=== PATIENT | male | born 1970 | race Two or more races ===

== ENCOUNTER 2023-03-30 09:31 | Outpatient (REF) | payer OTHER, SELFPAY ==
--- NOTE | ~2023-03-30 | XR_ITS ---
EXAMINATION: XR LUMBAR SPINE XR HIPS, BILATERAL WITH PELVIS CLINICAL INFORMATION: Back pain with bilateral sciatica. COMPARISON: None available. TECHNIQUE: Three-view lumbar spine. AP pelvis. 2 views of each hip. FINDINGS: LUMBAR SPINE: There are 5 nonrib-bearing lumbar vertebrae. No acute fracture, spondylolisthesis, or spondylolysis is appreciated. Pedicles appear intact. Disc spaces are maintained. There is mild scoliosis convex right. There is some mild spurring at multiple levels. There appears to be right-sided facet arthropathy L5-S1. There is mild sclerosis of the sacroiliac joints bilaterally. Psoas muscles intact. PELVIS AND BILATERAL HIPS: AP film of the pelvis does not demonstrate any evidence of acute fracture or diastasIs. Hip joint spaces appear maintained. No definite widening or fusion of sacroiliac joints is appreciated. 2 views of the right hip do not demonstrate any evidence of acute fracture or dislocation. Joint space is maintained. No abnormal lytic or sclerotic lesions are identified. 2 views of the left hip appear unremarkable. No acute fracture or dislocation identified. Joint space maintained. No abnormal lytic or sclerotic lesions. XR/XR hip BI w PEL1V IMPRESSION: Mild degenerative change of the lumbosacral spine. No evidence of acute fracture or diastasIs of the pelvis. No significant bony abnormalities of the right or left hips.
--- NOTE | ~2023-03-30 | XR_ITS ---
EXAMINATION: XR LUMBAR SPINE XR HIPS, BILATERAL WITH PELVIS CLINICAL INFORMATION: Back pain with bilateral sciatica. COMPARISON: None available. TECHNIQUE: Three-view lumbar spine. AP pelvis. 2 views of each hip. FINDINGS: LUMBAR SPINE: There are 5 nonrib-bearing lumbar vertebrae. No acute fracture, spondylolisthesis, or spondylolysis is appreciated. Pedicles appear intact. Disc spaces are maintained. There is mild scoliosis convex right. There is some mild spurring at multiple levels. There appears to be right-sided facet arthropathy L5-S1. There is mild sclerosis of the sacroiliac joints bilaterally. Psoas muscles intact. PELVIS AND BILATERAL HIPS: AP film of the pelvis does not demonstrate any evidence of acute fracture or diastasIs. Hip joint spaces appear maintained. No definite widening or fusion of sacroiliac joints is appreciated. 2 views of the right hip do not demonstrate any evidence of acute fracture or dislocation. Joint space is maintained. No abnormal lytic or sclerotic lesions are identified. 2 views of the left hip appear unremarkable. No acute fracture or dislocation identified. Joint space maintained. No abnormal lytic or sclerotic lesions. XR/XR lumbar spine 4V min IMPRESSION: Mild degenerative change of the lumbosacral spine. No evidence of acute fracture or diastasIs of the pelvis. No significant bony abnormalities of the right or left hips.
[2023-03-30 09:50] LABS: MANUAL DIFF FLAG NO
[2023-03-30 10:05] LABS: Basophils Percent Auto 0.6 % (0-2); Eosinophils Absolute Auto 0.1 X10*3/uL (0.0-0.4); Eosinophils Percent Auto 2.4 % (0-4); Hematocrit 40.8 % (42.0-52.0); Hemoglobin 13.8 g/dl (14.0-18.0); Imm Gran Abs Auto 0.01 X10*3/uL (0.00-0.03); Imm Gran Pct Auto 0.2 % (0.0-0.4); Lymphocytes Absolute Auto 2.3 X10*3/uL (1.2-4.9); Lymphocytes Percent Auto 45.5 % (20-40); Mean Corpuscular HGB Conc 33.8 g/dl (31.0-36.0); Mean Corpuscular Hemoglobin 29.9 pg (27.0-33.0); Mean Corpuscular Volume 88.3 fL (80.0-98.0); Mean Platelet Volume 10.5 fL (9.4-12.4); Monocytes Absolute Auto 0.6 X10*3/uL (0.1-1.2); Monocytes Percent Auto 12.4 % (2-11); Neutrophils Absolute Auto 1.9 x10*3/uL (2.0-8.3); Neutrophils Percent Auto 38.9 % (45-73); Platelet Count 221 X10*3/uL (160-400); Red Blood Count 4.62 X10*6/uL (4.60-5.80); Red Cell Distribution Width 12.8 % (11.0-16.0)
[2023-03-30 10:45] LABS: Alanine Aminotransferase 29 U/L (0-40); Albumin Level 4.3 g/dL (3.5-5.0); Alkaline Phosphatase 62 U/L (39-117); Anion Gap 8 (12-20); Aspartate Amino Transferase 25 U/L (5-37); Bilirubin Total 0.9 mg/dL (0.0-1.0); Blood Urea Nitrogen 10 mg/dL (9-16); Calcium 9.3 mg/dL (8.4-10.2); Carbon Dioxide 26 mmol/L (22-29); Chloride 106 mmol/L (96-108); Cholesterol 191 mg/dL; Estimated Glomerular Filt Rate > 60; Glucose Fasting 96 mg/dL (60-99); HDL Cholesterol 41 mg/dL; LDL Cholesterol Calculated 131 mg/dl; Potassium 3.4 mmol/L (3.3-5.1); Sodium 137 mmol/L (135-145); Total Protein 7.6 g/dL (6.5-8.0); Triglycerides 99 mg/dL
[2023-03-30 11:00] LABS: TSH reflex Free T4 1.73 uIU/mL (0.32-4.0); Vitamin D 25-OH Total 31.8 ng/mL (>30)
[2023-03-30 12:14] LABS: Creatinine Urine 91.64 mg/dL; Microalbum/Creatinine Ratio Ur 5.4 ug/mg cr
[2023-03-30 16:01] LABS: Folate 16.6 ng/mL (> or = 4.0); Prostate Specific Antigen 0.27 ng/mL (<0.05-4.0); Vitamin B12 974 pg/mL (200-900)
== END 2023-03-30 09:32 | disposition home or self-care (01) ==
LOC: HO.LAB 09:31
PROVIDERS: PCP Nurse Practitioner Family; Visit Provider Nurse Practitioner Family
DX: I10 Essential (primary) hypertension (principal); E11.9 Type 2 diabetes mellitus without complications; E78.5 Hyperlipidemia, unspecified; E03.9 Hypothyroidism, unspecified; F31.9 Bipolar disorder, unspecified; Z12.5 Encounter for screening for malignant neoplasm of prostate; Z13.9 Encounter for screening, unspecified
CPT/HCPCS: 36415; 72110; 73521; 80053; 80061; 82043; 82306; 82607; 82746; 84153; 84443; 85025

== ENCOUNTER 2023-06-01 09:27 | Outpatient (AMB) | payer OTHER, SELFPAY ==
[2023-06-01 09:29] VITALS: BP 132/80; PULSE 72; O2SAT 97; BMI 31.6
--- NOTE | 2023-06-01 09:29 | MHC.PC.OV ---
Vital Signs 06/01/23 09:29 Height 6 ft Weight 233 lb BMI 31.6 BP 132/80 Blood Pressure Location Lt brachial Position Sitting Pulse 72 Pulse Source Pulse Oximeter Temp Source Skin Pulse Oximetry (%) 97 Oxygen Delivery Method Room Air Intake Visit Reasons: Annual Exam Intake Note: Patient is here today for a physical. 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 Required: Yes 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 Language: [place]serratian Allergies No Known Allergies Allergy (Verified 06/01/23 09:37) Medication List - Last Reconciled 06/01/23 by SENA Pérez acetaminophen (Tylenol) 650 mg (2 x 325 mg) PO Q6H PRN albuterol sulfate 90 mcg/actuation (Ventolin HFA) 2 puffs inhalation Q4-6H PRN amlodipine (Norvasc) 5 mg PO DAILY aspirin 81 mg PO DAILY cyclobenzaprine 5 mg PO BEDTIME PRN divalproex (Depakote) 500 mg PO BID famotidine (Pepcid) 20 mg PO DAILY fluticasone propionate 100 mcg/actuation (Flovent Diskus) 2 inhalations inhalation BID levothyroxine (Synthroid) 50 mcg PO DAILY losartan-hydrochlorothiazide 100-25 mg (Hyzaar) 1 tab PO DAILY melatonin 5 mg PO BEDTIME PRN meloxicam 7.5 mg PO DAILY metformin 500 mg PO DAILY metoprolol succinate ER 50 mg PO DAILY montelukast (Singulair) 10 mg PO DAILY oxybutynin chloride 5 mg PO DAILY quetiapine 50 mg PO DAILY sertraline (Zoloft) 50 mg PO DAILY simvastatin 40 mg PO DAILY Tobacco use date assessed: 06/01/23 Dental Screening Dental Screen Date: 06/01/23 Did you have a dental visit in the last 12 months?: No Did you have a dental problem in the last 6 months where you did not have access to dental care?: No HPI Annual Exam HPI Details Patient is a 53-year-old male who presents today for physical exam. Medical history significant for allergic rhinitis, hypothyroidism, hypertension, diabetes, GERD, hyperlipidemia, arthritis in back and knees, asthma, insomnia, COPD-patient reports that he stopped smoking more than 15 years ago, BPH, depression, anxiety, bipolar disorder - started following by Psychiatry in [place]-reports Psychiatry will be managing mental health medications-seeing therapist weekly.? Today we discussed patient's need for colon cancer screening, he reports colonoscopy 7 years ago in [place] and polyps were removed. We also discussed patient's need for tetanus and pneumonia vaccines. Patient is currently in physical therapy for back pain and hips pain. He reports ongoing intermittent left knee pain for long time now, declines physical therapy referral. Patient is a [place]serratian-speaking and Halle was helping with interpretation. [facility] Medical History (Updated 06/01/23 @ 10:09 by SENA Pérez) Encounter to establish care Surgical History (Updated 06/01/23 @ 10:13 by SENA Péerz) History of bladder surgery History of colonoscopy Family History Father Prostate cancer Social History Housing: House Patient Tobacco Use Status: Former Tobacco user Years Smoked: pt quit 15 years ago Current occupational status: employed Cognitive needs: No Hearing needs: No Vision needs: No Questionnaire PHQ-9 Over the last 2 weeks, how often have you been bothered by any of the following problems? 1. Little interest or pleasure in doing things: more than half the days 2. Feeling down, depressed, or hopeless: more than half the days 3. Trouble falling or staying asleep, or sleeping too much: nearly every day 4. Feeling tired or having little energy: more than half the days 5. Poor appetite or overeating: several days 6. Feeling bad about yourself - or that you are a failure or have let yourself or your family down: several days 7. Trouble concentrating on things, such as reading the newspaper or watching television: more than half the days 8. Moving or speaking so slowly that other people could have noticed. Or the opposite - being so fidgety or restless that you have been moving around a lot more than usual: several days 9. Thoughts that you would be better off or of hurting yourself in some way: several days Total score: 15 Depression Screening Interpretation: Positive Depression Screening Follow-up: In treatment 80596 - PHQ-9 Billing: Yes Source: Developed by Drs. Song Snyder, Ashley Ashford, Papa Gilliam and colleagues, with an educational maryjo from [employer]. Thrive Questionnaire Date Thrive assessed: 03/30/23 AUDIT C Alcohol Use Questionnaire (AUDIT-C) 1. How often do you have a drink containing alcohol?: Never 3. How often do you have six or more drinks on one occasion?: Never Total Score: 0 Score Reviewed/Action Taken: No ISABEL-7 AMB Questionnaire ISABEL-7 Date ISABEL - 7 assessed: 03/30/23 Feeling nervous, anxious, or on edge: 2 = More than half the days Not being able to stop or control worryin = More than half the days Worrying too much about different things: 2 = More than half the days Trouble relaxin = More than half the days Being so restless that it is hard to sit still: 2 = More than half the days Becoming easily annoyed or irritable: 1 = Several days Feeling afraid as if something awful might happen: 2 = More than half the days Total ISABEL-7 score (0-4 normal; 5-9 mild; 10-14 moderate; 15-21 severe): 13 Source: Developed by Drs. Song Snyder, Ashley Ashford, Papa Gilliam and colleagues, with an educational maryjo from [employer]. ISABEL-7 Assessment Billing ISABEL-7 Assessment Tool: ISABEL-7 Assessment 33443 Review of Systems Const Denies body aches, Denies chills, Denies fever(s) and Denies headache(s) Eyes Denies change in vision ENT Denies dizziness, Denies otalgia, Denies headache(s), Denies nasal discharge, Denies sinus pain and Denies sore throat Card Denies chest pain, Denies edema, Denies lightheadedness and Denies dyspnea Resp Denies cough and Denies dyspnea GI Denies constipation, Reports dyspepsia, Reports heartburn, Denies diarrhea, Denies nausea and Denies vomiting Denies dysuria Musc Reports back pain, Denies myalgias, Reports arthralgias, Denies numbness and Denies tingling Skin/Breast Denies rash Neuro Denies dizziness, Denies headache(s), Denies numbness and Denies tingling Physical exam (Primary Care) Vital Signs: Last Vital Signs Pulse 72 06/01/23 09:29 BP 132/80 06/01/23 09:29 Pulse Ox 97 06/01/23 09:29 Oxygen Delivery Method Room Air 06/01/23 09:29 BMI result Body Mass Index 31.6 Tobacco/Smoking Status: Tobacco use Status Tobacco use date assessed 06/01/23 06/01/23 09:30 Patient Tobacco Use Status Former Tobacco user 06/01/23 09:30 PHQ-9: PHQ-9 Score PHQ-9: Total score 15 06/01/23 09:40 Depression Screening Interpretation: Positive Depression Screening Follow-up: In treatment Thrive Assessment: Date of Thrive Assessment Date Thrive assessed 03/30/23 06/01/23 09:30 Const General: cooperative and no acute distress Orientation/consciousness: patient oriented x3 HENMT Head: Yes normocephalic and Yes atraumatic Ears: TM's normal bilaterally Face and sinus: Yes sinuses nontender Mouth: oropharynx normal and moist mucous membranes Throat: Yes posterior oropharynx normal Eyes General: appearance normal, both eyes and all related structures Pupils: Equal, round and reactive pupils present Neck Neck: Yes normal visual inspection, Yes full ROM and Yes no lymphadenopathy Thyroid: Thyroid normal Resp Effort & Inspection: normal respiratory effort and able to speak in complete sentences Auscultation: clear to auscultation bilaterally, no crackles, no rales, no rhonchi and no wheezes Cardio Rate: regular rate Rhythm: regular rhythm Heart sounds: S1 normal heart sound present, S2 normal heart sound present and no murmurs GI Palpation (GI): Soft to palpation, not firm, Tenderness to palpation present (GI) in the epigastrum and in the RUQ; Reed's sign negative and with no rebound tenderness, no guarding, not rigid and no hepatosplenomegaly Auscultation: normal bowel sounds General: No CVA tenderness Back/Spine/Pelvis Back: No CVA tenderness Skin General skin exam: no rashes or lesions noted Neuro General: patient oriented x3 Cranial nerves: Yes Equal, round and reactive pupils present Gait exam (Neuro): Normal gait present Extrem General: Yes full ROM and No edema Immunizations pneumoc 20-hazel conj-dip cr(PF) Performing Provider: SENA Pérez Administered by: EVENS Courtney on 06/01/23 09:52 Dose Route Admin Location Lot Number Expiration Date 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 mL IM Left Deltoid [id number] 09/07/25 [id number] [employer] VIS Given Date VIS Provided VIS Publication Date 06/01/23 Single Vaccine 21 Eligibility Eligibility Date Funding Source Not VFC Eligible 06/01/23 Private Assessment and Plan Assessment & Plan (1) Bipolar disorder: Code(s): F31.9 - Bipolar disorder, unspecified Plan: Followed by Psychiatry in [facility] Psychiatry will be managing mental health medications-seeing therapist weekly Continue Seroquel and Depakote (2) Anxiety: Code(s): F41.9 - Anxiety disorder, unspecified Plan: Followed by Psychiatry in [facility] Psychiatry will be managing mental health medications-seeing therapist weekly Continue sertraline 50 mg daily (3) Depression: Code(s): F32.A - Depression, unspecified Qualifiers: Depression Type: other depression Qualified Code(s): F32.89 - Other specified depressive episodes Plan: Followed by Psychiatry in [facility] Psychiatry will be managing mental health medications-seeing therapist weekly Continue sertraline 50 mg daily (4) Benign prostate hyperplasia: Code(s): N40.0 - Benign prostatic hyperplasia without lower urinary tract symptoms Plan: On oxybutynin 5 mg daily (5) COPD (chronic obstructive pulmonary disease): Code(s): J44.9 - Chronic obstructive pulmonary disease, unspecified Plan: Stable Continue Flovent (6) Insomnia: Code(s): G47.00 - Insomnia, unspecified Plan: Stable with melatonin 5 mg at bedtime p.r.n. (7) Asthma: Code(s): J45.909 - Unspecified asthma, uncomplicated Plan: Stable Continue Flovent Albuterol inhaler p.r.n. (8) Hyperlipidemia: Code(s): E78.5 - Hyperlipidemia, unspecified Plan: Goal LDL less than 100 Simvastatin 40 mg daily Low-cholesterol diet (9) GERD (gastroesophageal reflux disease): Code(s): K21.9 - Gastro-esophageal reflux disease without esophagitis Plan: Patient reports that Pepcid barely helps him, stop Pepcid Start omeprazole 20 mg daily Avoid GERD trigger foods Do not lay down 2-3 hours after evening meal (10) Diabetes: Code(s): E11.9 - Type 2 diabetes mellitus without complications Plan: A1c 5.4 03/2023 Continue metformin 500 mg daily Low carbohydrate diet Scheduled for diabetic eye exam 10/2023 (11) Hypertension: Code(s): I10 - Essential (primary) hypertension Plan: Goal BP equal or less than 140/90 Continue amlodipine 5 mg daily, losartan-hydrochlorothiazide 100-25 mg daily, metoprolol 50 mg daily Low-sodium diet and weight loss (12) Hypothyroidism: Code(s): E03.9 - Hypothyroidism, unspecified Plan: On levothyroxine 50 mcg daily (13) Allergic rhinitis: Code(s): J30.9 - Allergic rhinitis, unspecified Plan: Stable with montelukast 10 mg daily (14) Left knee pain: Code(s): M25.562 - Pain in left knee Plan: X-ray ordered Patient declined physical therapy referral (15) RUQ abdominal tenderness: Code(s): R10.811 - Right upper quadrant abdominal tenderness Plan: Physical exam with right upper quadrant tenderness and epigastric tenderness, no rebound tenderness. Will obtain abdominal ultrasound (16) Adult general medical exam: Code(s): Z00.00 - Encounter for general adult medical examination without abnormal findings Plan: Repeat in 1 year (17) Screening for colon cancer: Code(s): Z12.11 - Encounter for screening for malignant neoplasm of colon Plan Follow-up in 3 months or sooner as needed Orders: Orders Comprehensive [place]. Panel Fast 3 Months E11.9 - Type 2 diabetes mellitus without complications Hemoglobin A1c 3 Months E11.9 - Type 2 diabetes mellitus without complications Lipid Panel 3 Months I10 - Essential (primary) hypertension TSH reflex Free T4 3 Months E03.9 - Hypothyroidism, unspecified US abdomen complete Today R10.811 - Right upper quadrant abdominal tenderness XR knee LT 3V Today M25.562 - Pain in left knee TDaP Immunization Today Z23 - Encounter for immunization Pneumococcal 20 Immunization Today Z23 - Encounter for immunization Referrals Gastroenterology Referral Z12.11 - Encounter for screening for malignant neoplasm of colon Medications: New omeprazole 20 mg PO DAILY 90 caps 0RF K21.9 - Gastro-esophageal reflux disease without esophagitis Discontinued famotidine (Pepcid) Discontinued Reason: Doctor's Order 20 mg PO DAILY 90 tabs 0RF K21.9 - Gastro-esophageal reflux disease without esophagitis Coding Level of Care Code Est Pt Prev Care 40-64y(89577) Diagnoses Bipolar disorder F31.9 Anxiety F41.9 Depression F32.89 Depression Type: other depression Benign prostate hyperplasia N40.0 COPD (chronic obstructive pulmonary disease) J44.9 Insomnia G47.00 Asthma J45.909 Hyperlipidemia E78.5 GERD (gastroesophageal reflux disease) K21.9 Diabetes E11.9 Hypertension I10 Hypothyroidism E03.9 Allergic rhinitis J30.9 Left knee pain M25.562 RUQ abdominal tenderness R10.811 Adult general medical exam Z00.00 Screening for colon cancer Z12.11 Additional Codes ISABEL-7 Assessment Billing - ISABEL-7 Assessment Tool: ISABEL-7 Assessment 17037 ([id number])
== END 2023-06-01 10:05 | disposition home or self-care (01) ==
PROVIDERS: PCP Nurse Practitioner Family; Visit Provider Nurse Practitioner Family
DX: Z23 Encounter for immunization (principal)
CPT/HCPCS: 90471; 90472; 90677; 90715; 99396

== ENCOUNTER 2023-06-01 10:26 | Outpatient (REF) | payer OTHER, SELFPAY ==
--- NOTE | ~2023-06-01 | XR_ITS ---
EXAMINATION: XR KNEE, LEFT CLINICAL INFORMATION: Left knee pain COMPARISON: None available. TECHNIQUE: Three views of the left knee. FINDINGS: No fracture or joint effusion. Alignment is anatomic. There is mild joint space narrowing in the medial compartment without associated arthritic change. The other joint spaces are well-maintained. No abnormal soft tissue calcification. XR/XR knee LT 3V IMPRESSION: Mild joint space narrowing in the medial compartment. The examination is otherwise unremarkable.
== END 2023-06-01 10:27 | disposition home or self-care (01) ==
LOC: HO.XRAY 10:26
PROVIDERS: PCP Nurse Practitioner Family; Visit Provider Nurse Practitioner Family
DX: M25.562 Pain in left knee (principal)
CPT/HCPCS: 73562

== ENCOUNTER 2023-06-03 11:00 | Outpatient (RCR) | payer OTHER, SELFPAY ==
[2023-04-22 10:01] VITALS: BP 137/87; PULSE 80
--- NOTE | 2023-04-22 13:56 | MHC.PT.EP ---
[facility] [place] Office [place] Office [place] Office [address] Esdras Grover [address] [phone] F: [phone] F: [phone] F: [phone] F: [phone] Physical Therapy Plan of Care Date of Evaluation: Date of Surgery: NA Diagnosis: Dorsalgia, pain in B hips, back pain Assessment: [place] is a 53 yo male referred to PT for Dorsalgia, pain in B hips, back pain . D/t pt muscular guarding and resisting against PROM for assessment, it was difficult to determine what was direct cause of pts pain. Impairments include severely decreased lumbar ROM, impaired hip strength, increased tissue tension in thoracic/lumbar spine, impaired gait d/t pain, and slight R lateral lean. Functional limitations include pain with standing, walking, and sitting, difficulty dressing, difficulty completing ADLs, and difficulty with bed mobility. PT needed to address aforementioned impairments and functional limitations. PT to include hot/cold pack, postural education, STM, core strengthening, back/LE strengthening/stretching, gait training, pt education, and HEP Frequency and Duration: The patient will be seen 2x a week for 4 weeks Short Term Goals: In 2 weeks... 1. Pt will become I with all HEP 2. Pt's thoracic/lumbar ROM will increase by 50% in order to be able to dress self w/o difficulty 3. Pt will have decreased tissue tension/muscle guarding in order to improve ability to perform bed mobility Stopper Setter Goals: In 4 weeks... 1. Pt will be able to sit comfortably with no more than 3/10 back pain 2. Pt will demonstrate improvement in gait mechanics in order to walk w/ increased arm swing/trunk rotation and w/o pain 3. Pt will demonstrate an increase in muscle strength in B LE and core by 1 grade which will enable him to tolerate standing and walking with a pain no more than 1/10. Treatment Plan: Modalities to reduce pain, spasms and effusion. Manual therapy to restore motion and function. Therapeutic exercise to improve strength and flexibility. Neuromuscular re-education for posture and balance. Therapeutic activities to return to functional activities of daily living. Electronically signed by: Silvia Loco PT DPT Please sign and return to therapist. Thank you for your referral.
--- NOTE | 2023-06-10 09:25 | MHC.PT.DC ---
[facility] [place] Office [place] Office [place] Office [address] Esdras Grover [address] [phone] F: [phone] F: [phone] F: [phone] F: [phone] Physical Therapy Discharge Report Diagnosis: Dorsalgia, pain in B hips, back pain Date of Surgery: NA Date of Evaluation: 04/22/23 Date of Discharge: 06/10/23 Treatments to Date: 7 Cancellations to Date: No Shows to Date: Discharge Status: Patient Elected to Stop Discharge Summary: [place] completed 7 PT visits. He came in very angry and upset on his 8th visit as he received a bill for his co-pay. When he was told about having a copay he was very upset and asked to cancel all his appointment. He is therefore being d/c from PT. Electronically signed by: Silvia Loco PT DPT Please sign and return to therapist. Thank you for your referral.
== END 2023-06-10 09:25 | disposition home or self-care (01) ==
LOC: HO.PT 11:00
PROVIDERS: PCP Nurse Practitioner Family; Visit Provider Nurse Practitioner Family
DX: M54.9 Dorsalgia, unspecified (principal); M25.551 Pain in right hip; M25.512 Pain in left shoulder
CPT/HCPCS: 97110; 97161

== ENCOUNTER 2023-06-24 09:54 | Outpatient (REF) | payer OTHER, SELFPAY ==
--- NOTE | ~2023-06-24 | US_ITS ---
EXAMINATION: US ABDOMEN COMPLETE CLINICAL INFORMATION: Right upper quadrant abdominal tenderness. COMPARISON: None available. TECHNIQUE: Real-time imaging of the abdominal viscera. Technically limited study secondary to bowel gas. FINDINGS: PANCREAS: Normal. ABDOMINAL AORTA: The proximal, mid, and distal segments are normal in caliber. INFERIOR VENA CAVA: Visualized portions are normal. LIVER: Limited for evaluation of liver due to bowel gas distribution. The liver contour is normal. There is increased echogenicity of the liver No focal hepatic lesion. There is no intrahepatic biliary duct dilatation seen. GALLBLADDER: Surgically absent. COMMON BILE DUCT: Normal in caliber measuring 0.6 cm in diameter. RIGHT KIDNEY: Normal. No hydronephrosis. No renal calculi or focal parenchymal lesions. The kidney measures 13.1 cm in maximum dimension. LEFT KIDNEY: Normal. No hydronephrosis. No renal calculi or focal parenchymal lesions. The kidney measures 11.9 cm in maximum dimension. SPLEEN: Normal. The spleen measures 9.6 cm in maximum dimension. FREE FLUID: None. US/US abdomen complete IMPRESSION: Technically limited examination due to bowel gas distribution revealed no abnormal findings
[2023-06-24 11:33] LABS: MANUAL DIFF FLAG NO
[2023-06-24 12:08] LABS: Basophils Percent Auto 0.6 % (0-2); Eosinophils Absolute Auto 0.1 X10*3/uL (0.0-0.4); Eosinophils Percent Auto 1.4 % (0-4); Hematocrit 41.4 % (42.0-52.0); Hemoglobin 14.2 g/dl (14.0-18.0); Imm Gran Abs Auto 0.01 X10*3/uL (0.00-0.03); Imm Gran Pct Auto 0.2 % (0.0-0.4); Lymphocytes Absolute Auto 2.2 X10*3/uL (1.2-4.9); Lymphocytes Percent Auto 44.7 % (20-40); Mean Corpuscular HGB Conc 34.3 g/dl (31.0-36.0); Mean Corpuscular Hemoglobin 30.4 pg (27.0-33.0); Mean Corpuscular Volume 88.7 fL (80.0-98.0); Mean Platelet Volume 11.1 fL (9.4-12.4); Monocytes Absolute Auto 0.5 X10*3/uL (0.1-1.2); Monocytes Percent Auto 10.9 % (2-11); Neutrophils Absolute Auto 2.1 x10*3/uL (2.0-8.3); Neutrophils Percent Auto 42.2 % (45-73); Platelet Count 207 X10*3/uL (160-400); Red Blood Count 4.67 X10*6/uL (4.60-5.80); Red Cell Distribution Width 12.6 % (11.0-16.0)
[2023-06-24 13:14] LABS: Alanine Aminotransferase 22 U/L (0-40); Albumin Level 4.4 g/dL (3.5-5.0); Alkaline Phosphatase 59 U/L (39-117); Anion Gap 11 (12-20); Aspartate Amino Transferase 17 U/L (5-37); Bilirubin Total 0.6 mg/dL (0.0-1.0); Blood Urea Nitrogen 13 mg/dL (9-16); Calcium 9.4 mg/dL (8.4-10.2); Carbon Dioxide 27 mmol/L (22-29); Chloride 107 mmol/L (96-108); Estimated Glomerular Filt Rate > 60; Glucose Random 95 mg/dL (60-115); Potassium 3.7 mmol/L (3.3-5.1); Sodium 141 mmol/L (135-145); Total Protein 7.7 g/dL (6.5-8.0)
== END 2023-06-24 09:55 | disposition home or self-care (01) ==
LOC: HO.US 09:54
PROVIDERS: Absent Provider Nurse Practitioner Psychiatric/Mental Health; PCP Nurse Practitioner Family; Visit Provider Nurse Practitioner Family
DX: R10.811 Right upper quadrant abdominal tenderness (principal); Z79.899 Other long term (current) drug therapy
CPT/HCPCS: 36415; 76700; 80053; 85025

== ENCOUNTER 2023-07-05 09:53 | Outpatient (AMB) | payer OTHER, SELFPAY ==
[2023-07-05 09:58] VITALS: BMI 31.6
--- NOTE | 2023-07-05 09:58 | A.OFFVIS_ITS ---
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 Grayson presents with complaints of progressively worsening left knee pain and giving way. He describes his pain as sharp in nature. Most of his pain is along the medial and lateral aspects of his knee. He did injure his knee approximately 1 year ago. He twisted his knee and had acute onset of pain. Since that time his symptoms have gotten worse in spite of continued non operative treatments. He has had injections in the past which gave him minimal relief. He has also done physical therapy which aggravated his pain. He has tried Tylenol and anti-inflammatory medicines which gave him minimal relief. He states that his left knee will give out several times per day. Allergies No Known Allergies Allergy (Verified 07/05/23 09:59) Medication List - Last Reconciled 07/05/23 by Bg Shahid MD acetaminophen (Tylenol) 650 mg (2 x 325 mg) PO Q6H PRN albuterol sulfate 90 mcg/actuation (Ventolin HFA) 2 puffs inhalation Q4-6H PRN amlodipine (Norvasc) 5 mg PO DAILY aspirin 81 mg PO DAILY cyclobenzaprine 5 mg PO BEDTIME PRN divalproex (Depakote) 500 mg PO BID fluticasone propionate 100 mcg/actuation (Flovent Diskus) 2 inhalations inhalation BID levothyroxine (Synthroid) 50 mcg PO DAILY losartan-hydrochlorothiazide 100-25 mg (Hyzaar) 1 tab PO DAILY melatonin 5 mg PO BEDTIME PRN meloxicam 7.5 mg PO DAILY metformin 500 mg PO DAILY metoprolol succinate ER 50 mg PO DAILY montelukast (Singulair) 10 mg PO DAILY omeprazole 20 mg PO DAILY oxybutynin chloride 5 mg PO DAILY quetiapine 50 mg PO DAILY sertraline (Zoloft) 50 mg PO DAILY simvastatin 40 mg PO DAILY HPI 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 States pain started about 1 yr ago and has worsen since. No injury he can recall. Denies previous knee injection, therapy or surgery. 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 Cognitive needs: No Hearing needs: No Vision needs: No Physical Exam Vital Signs: BMI result Body Mass Index 31.6 Const Other: Well-nourished well-developed very friendly male awake alert and oriented x3 in no acute distress Extrem Other: Bilateral lower extremity examination shows good capillary refill, no skin lesions noted, normal sensation light touch Left hip examination shows the with effusion, mild crepitus with range of motion, tenderness along his medial joint line, positive Elias's test, no instability Results Reviewed Results Reviewed: X-rays of the patient's left knee show mild diffuse joint space narrowing, no acute bony abnormalities Assessment & Plan Assessment & Plan (1) Left knee pain: Code(s): M25.562 - Pain in left knee Plan: Mr. Grayson presents with progressively worsening left knee pain and mechanical symptoms most likely due to tear of his medial meniscus. Thus, I will send the patient for an MRI of his left knee for further evaluation. I will see him back once the MRI is completed to discuss the findings and treatment options. Feel free to call me at any time should questions regarding his orthopedic management arise. Thank you very much for asking me to see this very friendly gentleman. I spent 22 minutes in reviewing the patient's records and imaging studies, seeing the patient and documenting in the medical record. Orders: Orders MR knee LT wo con Today M25.562 - Pain in left knee Coding Level of Care Code New Pt Level 2 (70903) Diagnoses Left knee pain M25.562
== END 2023-07-05 10:35 | disposition home or self-care (01) ==
PROVIDERS: PCP Nurse Practitioner Family; Visit Provider Orthopaedic Surgery
DX: M25.562 Pain in left knee (principal)
CPT/HCPCS: 99202

== ENCOUNTER → 2023-07-05 09:53 | Outpatient (BNVA) | payer OTHER, SELFPAY | PROVIDERS: PCP Nurse Practitioner Family; Visit Provider Orthopaedic Surgery | DX: M25.562 Pain in left knee (principal) | CPT/HCPCS: 99202 ==

== ENCOUNTER 2023-08-09 11:39 | Outpatient (AMB) | payer OTHER, SELFPAY ==
--- NOTE | 2023-08-09 11:42 | MHC.OFFVIS ---
Intake Vital Signs 08/09/23 11:43 Height 6 ft Weight 250 lb 7.122 oz BMI 34.0 BP 164/94 H Blood Pressure Location Rt brachial Position Sitting Pulse 91 Intake Visit Reasons: Colonoscopy Screening Intake Note: Patient presents to in office visit today as a new patient for colonoscopy screening. CC: Patient reports that his last EGD was about 2013 and he was found to have an ulcer and acid reflux. Patient c/o acid reflux, heartburn, stomach growling, nausea, occasional vomiting, occasional dysphagia, mid abdominal pain with radiation to the right sometimes, and diarrhea. [employer] Required: Yes [employer] Language: Commercial Credit Analyst Name: [id number] Darvin Accompanied by: Son Allergies No Known Allergies Allergy (Verified 09/01/23 10:38) HPI Colonoscopy Screening HPI Details 53-year-old male here for preprocedural meeting to discuss a screening colonoscopy. He is referred by Tanisha Son of [facility] primary care. PMX Asthma COPD High cholesterol Hypertension Hypothyroid Diabetes Depression/anxiety/bipolar disorder/insomnia Arthritis of the knees and back GERD Allergic rhinitis * SURGICAL HISTORY Colonoscopy-2016 with polyps removed Bladder surgery CHolecystectomy per CT scan * ALLERGIES: NKDA * [place] LABS: Laboratory Tests 03/30/23 06/24/23 06/24/23 09:48 11:32 11:32 WBC 5.0 Hgb 14.2 Hct 41.4 L MCV 88.7 MCH 30.4 Plt Count 207 Estimated GFR > 60 Total Bilirubin 0.6 AST 17 ALT 22 Alkaline Phosphata se 59 TSH 1.73 US of ABDOMEN 06/27/23 FINDINGS: PANCREAS: Normal. ABDOMINAL AORTA: The proximal, mid, and distal segments are normal in caliber. INFERIOR VENA CAVA: Visualized portions are normal. LIVER: Limited for evaluation of liver due to bowel gas distribution. The liver contour is normal. There is increased echogenicity of the liver No focal hepatic lesion. There is no intrahepatic biliary duct dilatation seen. GALLBLADDER: Surgically absent. COMMON BILE DUCT: Normal in caliber measuring 0.6 cm in diameter. RIGHT KIDNEY: Normal. No hydronephrosis. No renal calculi or focal parenchymal lesions. The kidney measures 13.1 cm in maximum dimension. LEFT KIDNEY: Normal. No hydronephrosis. No renal calculi or focal parenchymal lesions. The kidney measures 11.9 cm in maximum dimension. SPLEEN: Normal. The spleen measures 9.6 cm in maximum dimension. FREE FLUID: None. US/US abdomen complete IMPRESSION: Technically limited examination due to bowel gas distribution revealed no abnormal findings TODAY'S VISIT [place] #[id number] Renzo. This will be he second colonoscopy. The last was about 8 years ago in [place], he does not remember if they found any polyps. He apparently has GI complaints he wants addressed that were not indicated in the referral. He has been having diarrhea and nausea and borborygmus. This started several mos ago and has been worsening. He can not ID any medication changes, diet changes or preceding illness. This happens with all food and even with water. He has occasional vomiting. He has post prandial diarrhea. He has occasional feelings of twisting in the abdomen in the periumbilical area. This was only slight when it first started but has worsened. His mother had GERD and gastritis and his sister had PUD. The pt is s/p hiram per CT; he says in 2016. There are no prior problems with anesthesia or sedation. His asthma is well controlled and he says he has a cardiac arrhythmia that causes tachycardia, but he has not seen a regulator assembler for 3 years and the last was in [place]. On exam he has a significant pulmonic murmur with radiation to the axilla, and his mother of [place]. No ID problems. His brothers all had colon polyps removed. Return office visit in 4 weeks and of course after the colonoscopy. 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 Cognitive needs: No Hearing needs: No Vision needs: No Review of Systems Const Denies fatigue, Denies fever(s), Denies night sweats, Reports poor appetite and Denies weight loss Eyes Details: glasses Reports requires corrective lenses ENT Reports Normal hearing present, Denies dental pain, Denies dysphagia, Denies hearing loss, Denies mouth pain, Denies odynophagia, Denies throat swelling, Denies tongue swelling and Reports other (Dentition adequate) Card Reports chest pain with activity and Reports rapid heart rate Resp Reports no additional complaints GI Reports abdominal pain, Denies melena, Reports bloating, Denies hematochezia, Denies constipation, Reports GI cramping, Denies dysphagia, Denies excessive flatus, Denies early satiety, Reports heartburn, Reports diarrhea, Reports nausea, Denies odynophagia, Reports vomiting and Denies hematemesis Skin/Breast Denies pruritus, Denies lesions, Denies rash and Denies jaundice Neuro Reports Normal hearing present and Denies Abnormal speech present Endo Denies fatigue Aller/Immun Denies throat swelling and Denies tongue swelling Physical Exam Vital Signs: Last Vital Signs Pulse 91 08/09/23 11:43 BP 164/94 H 08/09/23 11:43 BMI result Body Mass Index 34.0 Const General: cooperative, no acute distress, well developed and well groomed Nutritional Appearance: well nourished and obese Orientation/consciousness: oriented to person, oriented to place and oriented to time Limitations: language barrier HEENT Head: Yes normocephalic and Yes atraumatic Eyes General: appearance normal, both eyes and all related structures Pupils: Equal, round and reactive pupils present Neck Neck: Yes normal visual inspection and Yes no lymphadenopathy Thyroid: Thyroid normal Resp Effort & Inspection: normal respiratory effort and able to speak in complete sentences Auscultation: clear to auscultation bilaterally Cardio Rate: regular rate Rhythm: regular rhythm Heart sounds: Murmur heart sound present (end systolic pulmonic murmur with rad it axilla) Peripheral pulses: radial pulses present and posterior tibial pulses present GI Inspection: No distended, No Abdominal panniculus present and Yes obesity Palpation (GI): Soft to palpation, Tenderness to palpation present (GI) periumbilically, no guarding, not rigid and No hepatosplenomegaly present Percussion: Yes normal to percussion Auscultation: normal bowel sounds Rectal Exam - Male: Yes deferred Skin General skin exam: no rashes or lesions noted, turgor normal, skin not dry, no jaundice, No spider nevi and no striae Rashes: no rashes Nails: normal Neuro General: oriented to person, oriented to place and oriented to time Cranial nerves: Yes Equal, round and reactive pupils present and Yes Normal hearing present Speech: No Abnormal speech present Extrem General: Yes normal to inspection, No clubbing, No cyanosis and No edema Psych Appearance: grossly normal and well kempt Mental Status: mental status grossly normal Speech and movement: Normal speech and movement present Affect: normal affect Attitude: cooperative Thought process: Circumstantial thought process present and not confabulating Thought content: Normal thought content present Insight: Poor insight present (Psych) Judgement: Poor judgement present (Psych) Assessment & Plan Assessment & Plan (1) Pre-op examination: Code(s): Z01.818 - Encounter for other preprocedural examination (2) COPD (chronic obstructive pulmonary disease): Code(s): J44.9 - Chronic obstructive pulmonary disease, unspecified (3) Post-cholecystectomy syndrome: Code(s): K91.5 - Postcholecystectomy syndrome (4) Nausea and vomiting: Code(s): R11.2 - Nausea with vomiting, unspecified (5) Heart murmur: Comment: ? pulmonic with radiation to axilla Code(s): R01.1 - Cardiac murmur, unspecified Plan [place] #[id number] Renzo. This will be he second colonoscopy. The last was about 8 years ago in [place], he does not remember if they found any polyps. He apparently has GI complaints he wants addressed that were not indicated in the referral. He has been having diarrhea and nausea and borborygmus. This started several mos ago and has been worsening. He can not ID any medication changes, diet changes or preceding illness. This happens with all food and even with water. He has occasional vomiting. He has post prandial diarrhea. He has occasional feelings of twisting in the abdomen in the periumbilical area. This was only slight when it first started but has worsened. His mother had GERD and gastritis and his sister had PUD. The pt is s/p hiram per CT; he says in 2016. There are no prior problems with anesthesia or sedation. His asthma is well controlled and he says he has a cardiac arrhythmia that causes tachycardia, but he has not seen a regulator assembler for 3 years and the last was in [place]. On exam he has a significant pulmonic murmur with radiation to the axilla, and his mother of [place]. No ID problems. His brothers all had colon polyps removed. Return office visit in 4 weeks and of course after the colonoscopy. Orders: Orders ECG 12 lead EKG 08/09/23 R01.1 - Cardiac murmur, unspecified EGD/[place] Combo - GI Use Only 08/09/23 K91.5 - Postcholecystectomy syndrome, Z01.818 - Encounter for other preprocedural examination, R11.2 - Nausea with vomiting, unspecified Referrals Cardiology Referral R01.1 - Cardiac murmur, unspecified Medications: New peg 3350-electrolytes 236-22.74-6.74 -5.86 gram (Golytely) until fecal effluent is clear; do not exceed a total volume of 2,000 mL 240 mL PO Q10M 4,000 mL 0RF 1 day Z12.11 - Encounter for screening for malignant neoplasm of colon cholestyramine (with sugar) 4 gram administer w/meal; avoid other meds within 1hr before or 4-6hr after dose 4 grams PO BID 60 ea 6RF K91.5 - Postcholecystectomy syndrome Coding Level of Care Code New Pt Level 3 (09404) Diagnoses Pre-op examination Z01.818 COPD (chronic obstructive pulmonary disease) J44.9 Post-cholecystectomy syndrome K91.5 Nausea and vomiting R11.2 Heart murmur R01.1
[2023-08-09 11:43] VITALS: BP 164/94; PULSE 91; BMI 34.0
== END 2023-08-09 12:50 | disposition home or self-care (01) ==
PROVIDERS: PCP Nurse Practitioner Family; Visit Provider Nurse Practitioner
DX: Z01.818 Encounter for other preprocedural examination (principal); J44.9 Chronic obstructive pulmonary disease, unspecified; K91.5 Postcholecystectomy syndrome; R11.2 Nausea with vomiting, unspecified; R01.1 Cardiac murmur, unspecified
CPT/HCPCS: 99203

== ENCOUNTER → 2023-08-09 11:39 | Outpatient (BNVA) | payer OTHER, SELFPAY | PROVIDERS: PCP Nurse Practitioner Family; Visit Provider Nurse Practitioner | DX: Z01.818 Encounter for other preprocedural examination (principal); J44.9 Chronic obstructive pulmonary disease, unspecified; K91.5 Postcholecystectomy syndrome; R11.2 Nausea with vomiting, unspecified; R01.1 Cardiac murmur, unspecified | CPT/HCPCS: 99202 ==

== ENCOUNTER 2023-08-23 09:21 | Outpatient (REF) | payer OTHER, SELFPAY ==
--- NOTE | ~2023-08-23 | MR_ITS ---
EXAMINATION: MR KNEE WITHOUT CONTRAST, LEFT CLINICAL INFORMATION: Left knee pain. COMPARISON: 06/01/2023. TECHNIQUE: MRI of the knee without contrast was performed using routine sequences on a high-field scanner. FINDINGS: MENISCI: Medial Meniscus: There is a complex horizontal tear of the posterior horn and body extending along the undersurface to the inner margin. Inner margin of the meniscal body is markedly blunted with loss of meniscal tissue, either due to meniscal degeneration or prior partial meniscectomy. A small radial component of the tear is suspected in this region. There is partial extrusion of the meniscal body with a meniscal flap in the meniscofemoral recess medially. Lateral Meniscus: Intact. LIGAMENTS: Cruciate: Intact. Collateral: Intact. EXTENSOR MECHANISM: Quadriceps and patellar tendons are intact. Hoffa's fat pad is normal in signal intensity. ARTICULAR CARTILAGE/BONE: Patellofemoral Compartment: There is mild nonuniform chondral thinning at the patella and medial patellar facet with surface irregularity and small marginal osteophytes. Small chondral fissures are present in the central trochlea. Normal trochlear morphology. Medial Compartment: There is mild nonuniform chondral thinning in the medial femoral condyle and medial tibial plateau weightbearing surfaces with tiny marginal osteophytes. Lateral Compartment: Minimal chondral thinning and surface irregularity at the lateral femoral condyle. Tiny marginal osteophytes. JOINT FLUID AND BURSAE: Trace joint fluid is within normal limits. No Cagle's cyst. No bursitis. MR/MR knee LT wo con IMPRESSION: 1. Complex horizontal tear of the posterior horn and body of the medial meniscus with partial extrusion of the meniscal body. Loss of meniscal tissue at the body is most likely due to meniscal degeneration. Prior partial meniscectomy could also produce this appearance. 2. Mild tricompartmental osteoarthritis.
[2023-08-23 10:04] LABS: Estimated Average Glucose 117 mg/dL; Hemoglobin A1c % 5.7 % (<6.0)
[2023-08-23 10:31] LABS: Alanine Aminotransferase 34 U/L (0-40); Albumin Level 4.4 g/dL (3.5-5.0); Alkaline Phosphatase 61 U/L (39-117); Anion Gap 9 (12-20); Aspartate Amino Transferase 23 U/L (5-37); Bilirubin Total 0.7 mg/dL (0.0-1.0); Blood Urea Nitrogen 11 mg/dL (9-16); Calcium 9.9 mg/dL (8.4-10.2); Carbon Dioxide 31 mmol/L (22-29); Chloride 104 mmol/L (96-108); Cholesterol 156 mg/dL (<200); Estimated Glomerular Filt Rate > 60; Glucose Fasting 106 mg/dL (60-99); HDL Cholesterol 43 mg/dL (>40); LDL Cholesterol Calculated 90 mg/dL (<100); Sodium 140 mmol/L (135-145); Total Protein 7.9 g/dL (6.5-8.0); Triglycerides 117 mg/dL (<150)
== END 2023-08-23 09:22 | disposition home or self-care (01) ==
LOC: HO.MRI 09:21
PROVIDERS: Absent Provider Nurse Practitioner Family; PCP Nurse Practitioner Family; Visit Provider Orthopaedic Surgery
DX: M25.562 Pain in left knee (principal); E03.9 Hypothyroidism, unspecified; E11.9 Type 2 diabetes mellitus without complications; I10 Essential (primary) hypertension
CPT/HCPCS: 36415; 73721; 80053; 80061; 83036; 84443

== ENCOUNTER 2023-08-30 11:29 | Outpatient (AMB) | payer OTHER, SELFPAY ==
[2023-08-30 11:35] VITALS: BMI 33.9
--- NOTE | 2023-08-30 11:35 | A.OFFVIS_ITS ---
Intake Vital Signs 08/30/23 11:35 Height 6 ft Weight 250 lb BMI 33.9 Intake Visit Reasons: ov- MRI review of left knee Intake Note: Mr. Grayson presents with complaints of progressively worsening left knee pain and giving way. He describes his pain as sharp in nature. Most of his pain is along the medial and lateral aspects of his knee. He did injure his knee approximately 1 year ago. He twisted his knee and had acute onset of pain. Since that time his symptoms have gotten worse in spite of continued non operative treatments. He has had injections in the past which gave him minimal relief. He has also done physical therapy which aggravated his pain. He has tried Tylenol and anti-inflammatory medicines which gave him minimal relief. He states that his left knee will give out several times per day. Allergies No Known Allergies Allergy (Verified 08/30/23 11:44) Medication List - Last Reconciled 08/30/23 by gB Shahid MD acetaminophen (Tylenol) 650 mg (2 x 325 mg) PO Q6H PRN albuterol sulfate 90 mcg/actuation (Ventolin HFA) 2 puffs inhalation Q4-6H PRN amlodipine (Norvasc) 5 mg PO DAILY aspirin 81 mg PO DAILY cholestyramine (with sugar) 4 gram 4 grams PO BID cyclobenzaprine 5 mg PO BEDTIME PRN divalproex (Depakote) 500 mg PO BID fluticasone propionate 100 mcg/actuation (Flovent Diskus) 2 inhalations inhalation BID levothyroxine (Synthroid) 50 mcg PO DAILY losartan-hydrochlorothiazide 100-25 mg (Hyzaar) 1 tab PO DAILY melatonin 5 mg PO BEDTIME PRN meloxicam 7.5 mg PO DAILY metformin 500 mg PO DAILY metoprolol succinate ER 50 mg PO DAILY montelukast (Singulair) 10 mg PO DAILY omeprazole 20 mg PO DAILY oxybutynin chloride 5 mg PO DAILY peg 3350-electrolytes 236-22.74-6.74 -5.86 gram (Golytely) 240 mL PO Q10M 1 day quetiapine 50 mg PO DAILY sertraline (Zoloft) 50 mg PO DAILY simvastatin 40 mg PO DAILY [facility] Medical History (Updated 08/09/23 @ 12:44 by MAMADOU Hong) Encounter to establish care Surgical History History of esophagogastroduodenoscopy (EGD) History of colonoscopy History of bladder surgery Family History Father Prostate cancer Housing: House Patient Tobacco Use Status: Former Tobacco user Years Smoked: pt quit 15 years ago Current occupational status: unemployed 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 Cognitive needs: No Hearing needs: No Vision needs: No Physical Exam Vital Signs: BMI result Body Mass Index 33.9 Const Other: Well-nourished well-developed very friendly male awake alert and oriented x3 in no acute distress Lungs - clear to auscultation bilaterally with symmetric expansion Cardiovascular exam - regular rate and rhythm Abdominal exam - soft nontender nondistended Extrem Other: Bilateral lower extremity examination shows good capillary refill, no skin lesions noted, normal sensation light touch Left knee examination shows a minimal effusion, minimal crepitus with range of motion, tenderness along his medial joint line, positive Elias's test, no instability Results Reviewed Results Reviewed: MRI of the patient's left knee shows minimal diffuse degenerative changes, tearing of the medial meniscus, possible tearing of the lateral meniscus, no acute bony abnormalities Assessment & Plan Assessment & Plan (1) Left knee pain: Code(s): M25.562 - Pain in left knee Plan: Mr. Grayson presents with progressively worsening left knee pain and mechanical symptoms due to a medial meniscus tear and possible tearing of his lateral meniscus. I had a lengthy discussion with the patient regarding the treatment options. At this point he has failed continued non operative treatments. The risks and benefits of did left knee arthroscopic surgery were discussed at length with the patient. The patient wishes to proceed with surgery. He does understand that he may not get 100% relief of his symptoms depending on the severity of his degenerative changes. He will contact my office to pick a surgery date. He will follow-up as instructed. Feel free to call me at any time should questions regarding his orthopedic management arise. I spent 22 minutes in reviewing the patient's records and imaging studies, seeing the patient and documenting in the medical record. Coding Level of Care Code Est Pt Level 2 (23752) Diagnoses Left knee pain M25.562
== END 2023-08-30 12:12 | disposition home or self-care (01) ==
PROVIDERS: PCP Nurse Practitioner Family; Visit Provider Orthopaedic Surgery
DX: M25.562 Pain in left knee (principal)
CPT/HCPCS: 99212

== ENCOUNTER → 2023-08-30 11:29 | Outpatient (BNVA) | payer OTHER, SELFPAY | PROVIDERS: PCP Nurse Practitioner Family; Visit Provider Orthopaedic Surgery | DX: M25.562 Pain in left knee (principal) | CPT/HCPCS: 99212 ==

== ENCOUNTER 2023-09-01 09:23 | Outpatient (AMB) | payer OTHER, SELFPAY ==
[2023-09-01 09:25] VITALS: BP 140/90; PULSE 89; O2SAT 98; BMI 34.2
--- NOTE | 2023-09-01 09:25 | MHC.PC.OV ---
Vital Signs 09/01/23 09:25 09/01/23 09:43 Height 6 ft Weight 252 lb 0.2 oz BMI 34.2 BP 140/90 H 146/90 H Blood Pressure Location Lt brachial Lt brachial Position Sitting Sitting Pulse 89 Pulse Source Pulse Oximeter Pulse Oximetry (%) 98 Oxygen Delivery Method Room Air Intake Visit Reasons: F/U on DM, HTN, GERD Disposition Clerk Required: Yes Disposition Clerk Language: Monegasque Allergies No Known Allergies Allergy (Verified 09/01/23 09:34) Medication List - Last Reconciled 09/01/23 by SENA Pérez acetaminophen (Tylenol) 650 mg (2 x 325 mg) PO Q6H PRN albuterol sulfate 90 mcg/actuation (Ventolin HFA) 2 puffs inhalation Q4-6H PRN amlodipine (Norvasc) 5 mg PO DAILY aspirin 81 mg PO DAILY cholestyramine (with sugar) 4 gram 4 grams PO BID cyclobenzaprine 5 mg PO BEDTIME PRN divalproex (Depakote) 500 mg PO BID fluticasone propionate 100 mcg/actuation (Flovent Diskus) 2 inhalations inhalation BID levothyroxine (Synthroid) 50 mcg PO DAILY losartan-hydrochlorothiazide 100-25 mg (Hyzaar) 1 tab PO DAILY melatonin 5 mg PO BEDTIME PRN meloxicam 7.5 mg PO DAILY metformin 500 mg PO DAILY metoprolol succinate ER 50 mg PO DAILY montelukast (Singulair) 10 mg PO DAILY omeprazole 20 mg PO DAILY oxybutynin chloride 5 mg PO DAILY peg 3350-electrolytes 236-22.74-6.74 -5.86 gram (Golytely) 240 mL PO Q10M 1 day quetiapine 50 mg PO DAILY sertraline (Zoloft) 50 mg PO DAILY simvastatin 40 mg PO DAILY Tobacco use date assessed: 09/01/23 Dental Screening Dental Screen Date: 09/01/23 Did you have a dental visit in the last 12 months?: Yes Did you have a dental problem in the last 6 months where you did not have access to dental care?: No Was dental information given to patient?: Patient has dentist HPI F/U on DM, HTN, GERD HPI Details Patient is a 53-year-old male who presents today for routine follow-up. Medical history significant for allergic rhinitis, hypothyroidism, hypertension, diabetes, GERD, hyperlipidemia, arthritis in back and knees, asthma, insomnia, COPD, BPH, depression, anxiety, bipolar disorder - followed by Psychiatry and therapist.? Patient reports that he did not take his blood pressure medications this morning yet. Blood pressure slightly elevated. Recent blood work results reviewed with the patient. Will be seeing Cardiology today for preop clearance for his knee surgery. 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 How often do you have a drink containing alcohol?: Never 3. How often do you have six or more drinks on one occasion?: Never Total Score: 0 Score Reviewed/Action Taken: No ISABEL-7 AMB Questionnaire ISABEL-7 Date ISABEL - 7 assessed: 03/30/23 Source: Developed by Drs. Song Snyder, Ashley Ashford, Papa Gilliam and colleagues, with an educational maryjo from [employer]. Review of Systems Const Denies body aches, Denies chills, Denies fever(s) and Denies headache(s) ENT Denies dizziness, Denies otalgia, Denies headache(s), Denies nasal discharge, Denies sinus pain and Denies sore throat Card Denies chest pain, Denies edema, Denies lightheadedness and Denies dyspnea Resp Denies cough and Denies dyspnea GI Denies constipation, Reports dyspepsia, Reports heartburn, Denies diarrhea, Denies nausea and Denies vomiting Denies dysuria Musc Reports back pain, Denies myalgias and Reports arthralgias Neuro Denies dizziness and Denies headache(s) Physical exam (Primary Care) Vital Signs: Last Vital Signs Pulse 89 09/01/23 09:25 BP 146/90 H 09/01/23 09:43 Pulse Ox 98 09/01/23 09:25 Oxygen Delivery Method Room Air 09/01/23 09:25 BMI result Body Mass Index 34.2 Tobacco/Smoking Status: Tobacco use Status Tobacco use date assessed 09/01/23 09/01/23 09:27 Patient Tobacco Use Status Former Tobacco user 09/01/23 09:27 Thrive Assessment: Date of Thrive Assessment Date Thrive assessed 03/30/23 09/01/23 09:27 Const General: cooperative and no acute distress Orientation/consciousness: patient oriented x3 HENMT Head: Yes normocephalic and Yes atraumatic Face and sinus: Yes sinuses nontender Mouth: oropharynx normal and moist mucous membranes Throat: Yes posterior oropharynx normal Eyes General: appearance normal, both eyes and all related structures Neck Neck: Yes normal visual inspection, Yes full ROM and Yes no lymphadenopathy Thyroid: Thyroid normal Resp Effort & Inspection: normal respiratory effort and able to speak in complete sentences Auscultation: clear to auscultation bilaterally, no crackles, no rales, no rhonchi and no wheezes Cardio Rate: regular rate Rhythm: regular rhythm Heart sounds: S1 normal heart sound present, S2 normal heart sound present and no murmurs GI Auscultation: normal bowel sounds Skin General skin exam: no rashes or lesions noted Neuro General: patient oriented x3 Gait exam (Neuro): Normal gait present Extrem General: Yes full ROM and No edema Assessment and Plan Assessment & Plan (1) Benign prostate hyperplasia: Code(s): N40.0 - Benign prostatic hyperplasia without lower urinary tract symptoms Plan: On oxybutynin 5 mg daily (2) COPD (chronic obstructive pulmonary disease): Code(s): J44.9 - Chronic obstructive pulmonary disease, unspecified Plan: Stable Continue Flovent (3) Asthma: Code(s): J45.909 - Unspecified asthma, uncomplicated Plan: Stable Continue Flovent Albuterol inhaler p.r.n. (4) Hyperlipidemia: Code(s): E78.5 - Hyperlipidemia, unspecified Plan: Goal LDL less than 100 LDL 90 08/2023 Simvastatin 40 mg daily Low-cholesterol diet (5) GERD (gastroesophageal reflux disease): Code(s): K21.9 - Gastro-esophageal reflux disease without esophagitis Plan: Continue omeprazole 20 mg daily Avoid GERD trigger foods Do not lay down 2-3 hours after evening meal (6) Diabetes: Code(s): E11.9 - Type 2 diabetes mellitus without complications Plan: A1c 5.7 08/2023 Continue metformin 500 mg daily Low carbohydrate diet Scheduled for diabetic eye exam 10/2023 (7) Hypertension: Code(s): I10 - Essential (primary) hypertension Plan: Goal BP equal or less than 140/90 Continue amlodipine 5 mg daily, losartan-hydrochlorothiazide 100-25 mg daily, metoprolol 50 mg daily - patient reports he did not take his blood pressure medications this morning yet Low-sodium diet and weight loss (8) Hypothyroidism: Code(s): E03.9 - Hypothyroidism, unspecified Plan: On levothyroxine 50 mcg daily (9) Allergic rhinitis: Code(s): J30.9 - Allergic rhinitis, unspecified Plan: Stable with montelukast 10 mg daily Plan Follow-up in 3 months or sooner as needed Orders: Orders Lipid Panel 3 Months E78.5 - Hyperlipidemia, unspecified TSH reflex Free T4 3 Months E03.9 - Hypothyroidism, unspecified Hemoglobin A1c 3 Months E11.9 - Type 2 diabetes mellitus without complications Comprehensive [place]. Panel Fast 3 Months E11.9 - Type 2 diabetes mellitus without complications Medications: Refilled amlodipine (Norvasc) 5 mg PO DAILY 90 tabs 0RF I10 - Essential (primary) hypertension losartan-hydrochlorothiazide 100-25 mg (Hyzaar) 1 tab PO DAILY 90 tabs 0RF I10 - Essential (primary) hypertension omeprazole 20 mg PO DAILY 90 caps 0RF K21.9 - Gastro-esophageal reflux disease without esophagitis oxybutynin chloride 5 mg PO DAILY 90 tabs 0RF N40.0 - Benign prostatic hyperplasia without lower urinary tract symptoms levothyroxine (Synthroid) 50 mcg PO DAILY 90 tabs 0RF E03.9 - Hypothyroidism, unspecified metformin 500 mg PO DAILY 90 tabs 1RF E11.9 - Type 2 diabetes mellitus without complications metoprolol succinate ER 50 mg PO DAILY 90 tabs 0RF I10 - Essential (primary) hypertension montelukast (Singulair) 10 mg PO DAILY 90 tabs 0RF J30.9 - Allergic rhinitis, unspecified, J45.909 - Unspecified asthma, uncomplicated simvastatin 40 mg PO DAILY 90 tabs 0RF E78.5 - Hyperlipidemia, unspecified Coding Level of Care Code Est Pt Level 4 (17749) Diagnoses Benign prostate hyperplasia N40.0 COPD (chronic obstructive pulmonary disease) J44.9 Asthma J45.909 Hyperlipidemia E78.5 GERD (gastroesophageal reflux disease) K21.9 Diabetes E11.9 Hypertension I10 Hypothyroidism E03.9 Allergic rhinitis J30.9
[2023-09-01 09:43] VITALS: BP 146/90
== END 2023-09-01 09:53 | disposition home or self-care (01) ==
PROVIDERS: PCP Nurse Practitioner Family; Visit Provider Nurse Practitioner Family
DX: E11.69 Type 2 diabetes mellitus with other specified complication (principal); J44.9 Chronic obstructive pulmonary disease, unspecified; N40.0 Benign prostatic hyperplasia without lower urinary tract symptoms; J45.909 Unspecified asthma, uncomplicated; E78.5 Hyperlipidemia, unspecified; K21.9 Gastro-esophageal reflux disease without esophagitis; I10 Essential (primary) hypertension; E03.9 Hypothyroidism, unspecified; J30.9 Allergic rhinitis, unspecified
CPT/HCPCS: 99214

== ENCOUNTER 2023-09-01 10:26 | Outpatient (AMB) | payer OTHER, SELFPAY ==
--- NOTE | 2023-09-01 10:34 | A.OFFVIS_ITS ---
Intake Vital Signs 09/01/23 10:35 Height 6 ft Weight 251 lb 5.231 oz BMI 34.1 BP 158/96 H Blood Pressure Location Lt brachial Position Sitting Pulse 79 Pulse Source Monitor Intake Visit Reasons: Preop Ortho for left kneee Intake Note: Pre op Grain Inspector Required: Yes Grain Inspector Language: Tube Turner Name: Radha [id number] Accompanied by: Self / Same As Patient Allergies No Known Allergies Allergy (Verified 09/01/23 10:38) Medication List - Last Reconciled 09/01/23 by Bobby Marshall MD acetaminophen (Tylenol) 650 mg (2 x 325 mg) PO Q6H PRN albuterol sulfate 90 mcg/actuation (Ventolin HFA) 2 puffs inhalation Q4-6H PRN amlodipine (Norvasc) 5 mg PO DAILY aspirin 81 mg PO DAILY cholestyramine (with sugar) 4 gram 4 grams PO BID cyclobenzaprine 5 mg PO BEDTIME PRN divalproex (Depakote) 500 mg PO BID fluticasone propionate 100 mcg/actuation (Flovent Diskus) 2 inhalations inhalation BID levothyroxine (Synthroid) 50 mcg PO DAILY losartan-hydrochlorothiazide 100-25 mg (Hyzaar) 1 tab PO DAILY melatonin 5 mg PO BEDTIME PRN meloxicam 7.5 mg PO DAILY metformin 500 mg PO DAILY metoprolol succinate ER 50 mg PO DAILY montelukast (Singulair) 10 mg PO DAILY omeprazole 20 mg PO DAILY oxybutynin chloride 5 mg PO DAILY peg 3350-electrolytes 236-22.74-6.74 -5.86 gram (Golytely) 240 mL PO Q10M 1 day quetiapine 50 mg PO DAILY sertraline (Zoloft) 50 mg PO DAILY simvastatin 40 mg PO DAILY HPI HPI Comments History of Present Illness Details [place] is here for consultation regarding palpitations/chest discomfort, but he also needs preoperative evaluation-for GI as well as Ortho. Very vague history and cannot get much of details in spite of supervisor drying and softening. He states he has seen a imaging engineer many years ago for what he calls as arrhythmia but does not know any further details. He states that he gets sensations of heart fluttering randomly. Can happen any time. No specific patterns. He also gets some chest pains again, very random fashion and no clear exertional patterns. Many comorbidities including obesity, diabetes, hypertension, dyslipidemia. 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 Cognitive needs: No Hearing needs: No Vision needs: No Review of Systems Const Denies chills, Denies daytime sleepiness, Denies fatigue, Denies fever(s), Denies frequent falls, Denies night sweats, Denies snoring, Denies weakness, Denies weight gain and Denies weight loss Eyes Denies loss of vision ENT Denies dizziness and Denies hearing loss Card Denies chest pain, Denies chest pain with activity, Denies syncope, Denies edema, Denies claudication, Denies leg edema, Denies lightheadedness, Denies d yspnea on exertion and Denies orthopnea Resp Denies cough, Denies excessive phlegm production, Denies dyspnea on exertion, Denies snoring and Denies wheezing GI Denies abdominal pain, Denies hematochezia, Denies change in bowel habits, Denies change in stool character, Denies heartburn, Denies nausea and Denies vomiting Denies hematuria, Denies dysuria and Denies urinary frequency Musc Denies arthralgias, Denies muscle weakness, Denies numbness and Denies tingling Skin/Breast Denies nail changes and Denies rash Neuro Denies Abnormal speech present, Denies dizziness, Denies syncope, Denies frequent falls, Denies loss of vision, Denies memory loss, Denies numbness, Denies tingling and Denies weakness Psych Denies depression and Denies memory loss Endo Denies fatigue Aller/Immun Denies wheezing Physical Exam Vital Signs: Last Vital Signs Pulse 79 09/01/23 10:35 BP 158/96 H 09/01/23 10:35 BMI result Body Mass Index 34.1 Const General: comfortable and no acute distress Orientation/consciousness: patient oriented x3 HEENT Other: Unremarkable Head: Yes normal to inspection Neck Neck: Yes normal visual inspection Chest Chest palpation & inspection: normal inspection of the chest Resp Auscultation: clear to auscultation bilaterally Cardio Palpation: normal PMI Heart sounds: S1 normal heart sound present, S2 normal heart sound present, no gallops, Murmur heart sound present systolic I/ and no rubs GI Palpation (GI): Soft to palpation Back/Spine/Pelvis Other: unremarkable Skin General skin exam: no rashes or lesions noted Neuro General: patient oriented x3 Speech: No Abnormal speech present Extrem General: Yes normal to inspection Psych Mental Status: mental status grossly normal Office Procedures EKG Details: EKG with sinus rhythm at 79/Min; preexcitation [place]. 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 Unknown prior workup. Will get an echocardiogram, perfusion imaging and Holter for further evaluation. May hold surgical procedures till workup completed. Orders: Orders CA echo transthoracic complete Today I45.6 - Pre-excitation syndrome CA stress test Today I45.6 - Pre-excitation syndrome, R07.2 - Precordial pain NM cardiolite stress test Today I45.6 - Pre-excitation syndrome, R07.2 - Precordial pain ECG 7 day holter monitor Today I45.6 - Pre-excitation syndrome, R00.2 - Palpitations Coding Level of Care Code New Pt Level 4 (99414) Diagnoses Zzlrk-Cvepevezd-Wvamm (WPW) pattern I45.6 Heart palpitations R00.2 Precordial chest pain R07.2 Diabetes E11.9 Hypertension I10 Preoperative cardiovascular examination Z01.810 CPT Codes EKG - CPT: 00705-[id number], Complete ([id number])
[2023-09-01 10:35] VITALS: BP 158/96; PULSE 79; BMI 34.1
== END 2023-09-01 11:04 | disposition home or self-care (01) ==
PROVIDERS: PCP Nurse Practitioner Family; Visit Provider Internal Medicine
DX: I45.6 Pre-excitation syndrome (principal); R00.2 Palpitations; R07.2 Precordial pain; E11.9 Type 2 diabetes mellitus without complications; I10 Essential (primary) hypertension; Z01.810 Encounter for preprocedural cardiovascular examination
CPT/HCPCS: 93010; 99204

== ENCOUNTER → 2023-09-01 10:26 | Outpatient (BNVA) | payer OTHER, SELFPAY | PROVIDERS: PCP Nurse Practitioner Family; Visit Provider Internal Medicine | DX: Z01.810 Encounter for preprocedural cardiovascular examination (principal); R07.2 Precordial pain; I45.6 Pre-excitation syndrome; R00.2 Palpitations; E11.9 Type 2 diabetes mellitus without complications; I10 Essential (primary) hypertension | CPT/HCPCS: 93005; 99202 ==

== ENCOUNTER 2023-09-06 12:42 | Outpatient (AMB) | payer OTHER, SELFPAY ==
--- NOTE | 2023-09-06 12:50 | A.OFFVIS_ITS ---
Intake Vital Signs 09/06/23 12:51 Height 6 ft Weight 251 lb 5.231 oz BMI 34.1 BP 143/82 H Blood Pressure Location Lt brachial Position Sitting Pulse 76 Intake Visit Reasons: 4 week follow up Intake Note: Patient presents to in office visit today in follow up of GERD. CC: Patient states he was seen by his bowling pin refinisher and he ordered new testing as something abnormal was found. Patient states that the cholestyramine has been helping him with symptoms. Glass Technician Required: Yes Glass Technician Language: Bahraini Accompanied by: Self / Same As Patient Allergies No Known Allergies Allergy (Verified 09/01/23 10:38) HPI 4 week follow up HPI Details Assessment & Plan [place] #[id number] Renzo. This will be he second colonoscopy. The last was about 8 years ago in [place], he does not remember if they found any polyps. He apparently has GI complaints he wants addressed that were not indicated in the referral. He has been having diarrhea and nausea and borborygmus. This started several mos ago and has been worsening. He can not ID any medication changes, diet changes or preceding illness. This happens with all food and even with water. He has occasional vomiting. He has post prandial diarrhea. He has occasional feelings of twisting in the abdomen in the periumbilical area. This was only slight when it first started but has worsened. His mother had GERD and gastritis and his sister had PUD. The pt is s/p hiram per CT; he says in 2016. No anes or sed problems. His asthma is well controlled and he says he has a cardiac arrhythmia that causes tachycardia, but he has not seen a bowling pin refinisher for 3 years and the last was in [place]. On exam he has a significant pulmonic murmur with radiation to the axilla, and his mother of [place]. No ID problems. His brothers all had colon polyps removed. (1) Pre-op examination: Code(s): Z01.818 - Encounter for other preprocedural examination (2) COPD (chronic obstructive pulmonary disease): Code(s): J44.9 - Chronic obstructive pulmonary disease, unspecified (3) Post-cholecystectomy syndrome: Code(s): K91.5 - Postcholecystectomy syndrome (4) Nausea and vomiting: Code(s): R11.2 - Nausea with vomiting, unspecified (5) Heart murmur: Comment: ? pulmonic with radiation to axilla Code(s): R01.1 - Cardiac murmur, unspecified Orders: Orders ECG 12 lead EKG Today R01.1 - Cardiac mu rmur, unspecified EGD/[place] Combo - G I Use Only Today K91.5 - Postcholec ystectomy syndrome , R11.2 - Nausea w ith vomiting, unsp ecified, Z01.818 - Encounter for oth er preprocedural e xamination Referrals Cardiology Referra l R01.1 - Cardiac mu rmur, unspecified Medications: New peg 3350-electroly ariela 236-22.74-6.74 -5.86 gram (Golyt jennifer) until feca l effluent is kevin r; do not exceed a total volume of 2 ,000 mL 240 mL PO Q10M 1 day 4,000 mL 0RF Z12.11 - Encounter for screening for malignant neoplas m of colon cholestyramine ( sugar) 4 gram administer w/laura l; avoid other med s within 1hr befor e or 4-6hr after d ose 4 grams PO BID 60 ea 6RF K91.5 - Postcholec ystectomy syndrome EKG EKG with sinus rhythm at 79/Min; preexcitation [place] seen. [id number], Complete from cardiology note; 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 Unknown prior workup. EGD/COLONOSCOPY BIOPSY TODAY'S VISIT [place] #Amanda Grant Live He has been seeing cardiology, and has some upcoming surgery but it was cancelled 'Because they found something with my heart. It appears there may be some suspicion for Ncrub-Rhxcdfdpf-Jaszg syndrome. Obviously, we would also have to wait on the EGD as well until the cardiac clearance has been established. There is some question of WPW syndrome but the dx is not completely clear at this time. The cholestyramine is working well for his diarrhea. 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 Cognitive needs: No Hearing needs: No Vision needs: No Review of Systems Const Denies fatigue, Denies fever(s), Denies night sweats, Denies poor appetite and Denies weight loss Eyes Details: glasses Reports requires corrective lenses ENT Reports Normal hearing present, Denies dental pain, Denies dysphagia, Denies hearing loss, Denies mouth pain, Denies odynophagia, Denies throat swelling, Denies tongue swelling and Reports other (Dentition adequate) Card Reports chest pain and Reports dyspnea on exertion Resp Reports dyspnea on exertion GI Denies abdominal pain, Denies melena, Denies bloating, Denies hematochezia, Denies constipation, Denies GI cramping, Denies dysphagia, Denies excessive flatus, Denies early satiety, Denies heartburn, Reports diarrhea, Denies nausea, Denies odynophagia, Denies vomiting and Denies hematemesis Skin/Breast Denies pruritus, Denies lesions, Denies rash and Denies jaundice Neuro Reports Normal hearing present and Denies Abnormal speech present Endo Denies fatigue Aller/Immun Denies throat swelling and Denies tongue swelling Physical Exam Vital Signs: Last Vital Signs Pulse 76 09/06/23 12:51 BP 143/82 H 09/06/23 12:51 BMI result Body Mass Index 34.1 Const General: cooperative, no acute distress, well developed and well groomed Nutritional Appearance: well nourished and obese Orientation/consciousness: oriented to person, oriented to place and oriented to time Limitations: language barrier HEENT Head: Yes normocephalic and Yes atraumatic Eyes General: appearance normal, both eyes and all related structures Pupils: Equal, round and reactive pupils present Neck Neck: Yes normal visual inspection and Yes no lymphadenopathy Thyroid: Thyroid normal Resp Effort & Inspection: normal respiratory effort and able to speak in complete sentences Auscultation: clear to auscultation bilaterally Cardio Rate: regular rate Rhythm: regular rhythm Heart sounds: Murmur heart sound present (end systolic pulmonic murmur with rad it axilla) Peripheral pulses: radial pulses present and posterior tibial pulses present GI Inspection: No distended, No Abdominal panniculus present and Yes obesity Palpation (GI): Soft to palpation, nontender, no guarding, not rigid and No hepatosplenomegaly present Percussion: Yes normal to percussion Auscultation: normal bowel sounds Rectal Exam - Male: Yes deferred Skin General skin exam: no rashes or lesions noted, turgor normal, skin not dry, no jaundice, No spider nevi and no striae Rashes: no rashes Nails: normal Neuro General: oriented to person, oriented to place and oriented to time Cranial nerves: Yes Equal, round and reactive pupils present and Yes Normal hearing present Speech: No Abnormal speech present Extrem General: Yes normal to inspection, No clubbing, No cyanosis and No edema Psych Appearance: grossly normal and well kempt Mental Status: mental status grossly normal Speech and movement: Normal speech and movement present Affect: normal affect Attitude: cooperative Thought process: Normal thought process present and not confabulating Thought content: Normal thought content present Insight: Limited insight present (Psych) Judgement: Limited judgement present (Psych) Assessment & Plan Assessment & Plan (1) Post-cholecystectomy syndrome: Code(s): K91.5 - Postcholecystectomy syndrome Plan EGD/COLONOSCOPY BIOPSY TODAY'S VISIT [place] #Amanda Grant Live He has been seeing cardiology, and has some upcoming surgery but it was cancelled 'Because they found something with my heart. It appears there may be some suspicion for Yqlei-Gtoqfltlb-Sbepo syndrome. Obviously, we would also have to wait on the EGD as well until the cardiac clearance has been established. There is some question of WPW syndrome but the dx is not completely clear at this time. The cholestyramine is working well for his diarrhea. ROV 3 mos Coding Level of Care Code Est Pt Level 3 (11638) Diagnoses Post-cholecystectomy syndrome K91.5
[2023-09-06 12:51] VITALS: BP 143/82; PULSE 76; BMI 34.1
== END 2023-09-06 14:39 | disposition home or self-care (01) ==
PROVIDERS: PCP Nurse Practitioner Family; Visit Provider Nurse Practitioner
DX: K91.5 Postcholecystectomy syndrome (principal)
CPT/HCPCS: 99213

== ENCOUNTER → 2023-09-06 12:42 | Outpatient (BNVA) | payer OTHER, SELFPAY | PROVIDERS: PCP Nurse Practitioner Family; Visit Provider Nurse Practitioner | DX: K91.5 Postcholecystectomy syndrome (principal) | CPT/HCPCS: 99212 ==

== ENCOUNTER → 2023-09-22 10:48 | Outpatient (REF) | payer OTHER, SELFPAY ==
--- NOTE | 2023-09-22 10:53 | CA_ITS ---
Transthoracic Echocardiogram Patient (Last, First, Middle): Berlin Grayson, Gender: Male Date of : 1970 Age: 53 Procedure Date: 09/22/2023 Procedure Type: Transthoracic Echocardiogram Location: OP Height: 195.58 cm Weight: 113.4 kg BSA: 2.46 m2 Heart Rate: bpm BP: 166 / 100 mmHg Deer Farmer: BIN Referring MD: Bobby Marshall MD Sider Mechanic: Nasir Lundberg MD Symptoms: I45.6 - Pre-excitation syndrome Study Quality: Adequate with contrast ECG Rhythm: Sinus Conclusions: - 1. Technically difficult study 2. Hyperdynamic LV ejection fraction greater than 70% with impaired relaxation filling pattern with mildly increased gradient across the LVOT suggestive dynamic obstruction of unclear etiology 3. Normal cardiac valvular Dopplers Findings Left Ventricle Normal left ventricular cavity size. There is normal left ventricular wall thickness. The left ventricular systolic function is hyperdynamic. The visually estimated ejection fraction is >70%. Spectral Doppler is indicative of an impaired relaxation filling pattern. There is mild septal asymmetric hypertrophy. There is increased gradient across the LVOT or other mid cavity, this is unclear based on this study with late systolic accentuation consistent with dynamic obstructive physiology of mild severe artery which increases slightly with Valsalva maneuver Right Ventricle The right ventricle was not well visualized. Atria The left atrium was not well visualized. Interatrial shunt cannot be excluded. The right atrium was not well visualized. Aortic Valve The aortic valve structure and function is likely normal. There is no aortic valve stenosis. There is no aortic valve regurgitation. Mitral Valve The mitral valve was not well visualized. There is trace mitral valve regurgitation. There is no mitral valve stenosis. Pulmonic Valve The pulmonic valve was not well visualized. Tricuspid Valve The tricuspid valve was not well visualized. Tricuspid regurgitation envelope is inadequate for calculation of right ventricular systolic pressure. Great Vessels The aorta was not well visualized. The pulmonary artery was not well visualized. Venous The inferior vena cava was not well visualized. Pericardium/Pleural The pericardium was not well visualized. Prior Study Comparison No prior study available for comparison. Measurements 2D Linear Measurements IVSd: 1.09 0.6-0.9/0.6-1.0 cm LVIDd: 4.46 3.9-5.3/4.2-5.9 cm LVIDd Index: 1.81 2.4-3.2/2.2-3.1 cm/m2 LVIDs: 3.47 2.0-3.6 cm LVPWd: 0.73 0.7-1.1 cm LA Diam: 3.30 2.7-3.8/3.0-4.0 cm LAIDs Index: 1.34 1.5-2.3 cm/m2 LV Mass: 165.19 67-162/88-224 g LV Mass Index: 67.15 43-95/49-115 g/m2 LVOT Diam: 2.10 3.0+(-)1.3 cm 2D Systolic Function EF 4C: 72.40 >55% EF 2C: 72.10 >55% EF BiP: 73.40 >55% Mitral Valve MV Pk E: 0.62 MV PK A: 0.85 MV Decel Time: 176.00 E/A: 0.70 E'Lateral: 11.00 E'Medial: 7.29 E/E' Med: 8.50 E/E' Lat: 5.60 PHT: 51.00 MVA PHT: 4.31 Decel [place]: 3.52 Aortic Valve AoV Pk Pedro Luis: 1.81 AoV Mn Pedro Luis: 1.46 AoV VTI: 0.38 AoV Pk Grad: 13.00 Aov Mn Grad: 9.00 AB Cont.VTI: 2.51 LVOT LVOT Pk Pedro Luis: 1.35 LVOT Mn Pedro Luis: 0.80 LVOT VTI: 0.28 LVOT Pk Grad: 7.00 LVOT Mn Grad: 3.00 LVOT Diam: 2.10 LVOT Area: 3.46 Diastolic Function MV Pk E: 0.62 MV Pk A: 0.85 E/A: 0.70 E'Medial: 7.29 E/E' Med: 8.50 E' Laterial: 11.00 E/E' Lat: 5.60 Right Ventricle TAPSE (mm): 25.40 TVS' Pedro Luis: 14.90 Great Vessels Aorta Sinus of Valsalva: 3.13 2.0-3.[address] [place]: 2.52 1.7-3.4 cm Ao Asc: 2.90 2.1-3.4 cm Updated in Other Vendor System with Status of Final Nasir Lundberg MD electronically signed on 09/23/2023 10:07:12 AM with status of Final
--- NOTE | 2023-09-22 10:53 | HM_ITS ---
Conclusion: 1. Patient was monitored for total period of 7 days 2. Baseline was normal sinus with average heart of 70 beats per minute. 3. Frequent PACs noted with total burden of 2.4% with 11 total SVT runs, fastest at 178 beats per minute and longest at 11 beats 4. No significant pauses noted 5. Patient reported 5 events but only 3 symptoms in the diary with elevated heart rate or palpitations correlating with normal sinus rhythm MTDD
== END ==
LOC: HO.CARD 10:48
PROVIDERS: PCP Nurse Practitioner Family; Visit Provider Internal Medicine
DX: R00.2 Palpitations (principal); I45.6 Pre-excitation syndrome
CPT/HCPCS: 93242; 93306; Q9957

== ENCOUNTER → 2023-09-22 10:53 | Outpatient (BNV) | payer OTHER, SELFPAY | PROVIDERS: PCP Nurse Practitioner Family; Visit Provider Internal Medicine Cardiovascular Disease | DX: I49.1 Atrial premature depolarization (principal) | CPT/HCPCS: 93244; 93306 ==

== ENCOUNTER → 2023-10-19 10:04 | Outpatient (REF) | payer OTHER, SELFPAY ==
--- NOTE | ~2023-10-19 | NM_ITS ---
EXERCISE MYOCARDIAL PERFUSION STUDY INDICATION: Chest pain, shortness of breath, preoperative evaluation TECHNIQUE: The patient was brought in for an exercise perfusion study on 10/19/2023. Patient performed exercise as per Damon protocol and was injected 40 mCi of sestamibi once target heart rate was achieved. Images were obtained using the SPECT gamma camera interlaced with the gating device. Images were obtained in supine position. Resting perfusion study was performed on 10/20/2023. Patient was administered 40 mCi of sestamibi intravenously at rest. Images were then obtained in supine position. Images were processed with the software and compared side to side in short axis, horizontal long axis and vertical long axis views. Total DLP 96mGy-cm. FINDINGS: Raw images were reviewed. The stress perfusion study showed diminished tracer uptake along the inferior wall. With CT attenuation correction, there is improvement suggestive of diaphragmatic attenuation artifact. The gated study shows normal LV systolic function with calculated LVEF of 67%. LV cavity is normal in size. The gated study shows normal wall thickening and contraction of segments. Resting study shows mildly diminished tracer uptake along the inferior wall. Gating at rest reveals normal wall motion with ejection fraction at 74%. The findings are consistent with fixed defect in the inferior wall suggestive of diaphragmatic attenuation artifact. NM/NM cardiolite stress test IMPRESSION: 1. Myocardial perfusion imaging study shows no clear evidence of any ischemia or infarction. Probably normal myocardial perfusion. 2. Gated LVEF is 67% during stress and 74% during rest. 3. Transient ischemic dilatation not present. EKG component of the test reported separately.
--- NOTE | 2023-10-19 10:06 | CA_ITS ---
Acquisition Time: 2023-10-19 10:19:18 Total Exercise Time: 00:04:56 Test Indications: CP, SOB, PREOP Medications: SEE H Protocol: JOHNATHON Max HR: 176 BPM 106% of Pred: 166 BPM Max BP: 150/088 mmHG Max Work Load: 4.6 METS Exercise stress test exercse 4 min 56 sec of Johnathon protocol stage one reduced speed 104% MPHR, with moderate SOB, 5-6/10 chest discomfort, with isolated PVCs, with normotensive response to exercise, with baseline abnormalities which leads 1, 2, aVF, aVL, aVR, V1, V2 V3 . Chest pain resolved with rest. Nuclear images pending. Test reviewed with Dr. Marshall. Referred By: Bobby Marshall Overread By: Nataliya Rothman
== END ==
LOC: HO.CARD 10:04
PROVIDERS: PCP Nurse Practitioner Family; Visit Provider Internal Medicine
DX: R07.2 Precordial pain (principal); I45.6 Pre-excitation syndrome
CPT/HCPCS: 78452; 93017; A9500

== ENCOUNTER → 2023-10-19 10:06 | Outpatient (BNV) | payer OTHER, SELFPAY | PROVIDERS: PCP Nurse Practitioner Family; Visit Provider Nurse Practitioner | DX: R07.2 Precordial pain (principal); R06.02 Shortness of breath | CPT/HCPCS: 78452; 93016; 93018 ==

== ENCOUNTER 2023-10-26 12:52 | Outpatient (AMB) | payer OTHER, SELFPAY ==
[2023-10-26 12:59] VITALS: BP 120/60; PULSE 76; BMI 35.0
--- NOTE | 2023-10-26 12:59 | A.OFFVIS_ITS ---
Intake Vital Signs 10/26/23 12:59 Height 6 ft Weight 257 lb 15.053 oz BMI 35.0 BP 120/60 Blood Pressure Location Lt brachial Position Sitting Pulse 76 Intake Visit Reasons: pre op follow up testing Intake Note: pre-op f/up testing/ pt its feeling fine he is experiencing more is palpitations and more of the shortness of breath. Tape Editor Required: Yes Tape Editor Name: [id number]/[email or web address] Accompanied by: Self / Same As Patient Allergies No Known Allergies Allergy (Verified 10/26/23 13:06) Medication List - Last Reconciled 10/26/23 by Nataliya Rothman NP acetaminophen (Tylenol) 650 mg (2 x 325 mg) PO Q6H PRN albuterol sulfate 90 mcg/actuation (Ventolin HFA) 2 puffs inhalation Q4-6H PRN amlodipine (Norvasc) 5 mg PO DAILY aspirin 81 mg PO DAILY cholestyramine (with sugar) 4 gram 4 grams PO BID cyclobenzaprine 5 mg PO BEDTIME PRN divalproex (Depakote) 500 mg PO BID fluticasone propionate 100 mcg/actuation (Flovent Diskus) 2 inhalations inhalation BID levothyroxine (Synthroid) 50 mcg PO DAILY losartan-hydrochlorothiazide 100-25 mg (Hyzaar) 1 tab PO DAILY melatonin 5 mg PO BEDTIME PRN meloxicam 7.5 mg PO DAILY metformin 500 mg PO DAILY metoprolol succinate ER 50 mg PO DAILY montelukast (Singulair) 10 mg PO DAILY omeprazole 20 mg PO DAILY oxybutynin chloride 5 mg PO DAILY peg 3350-electrolytes 236-22.74-6.74 -5.86 gram (Golytely) 240 mL PO Q10M 1 day quetiapine 50 mg PO DAILY sertraline (Zoloft) 50 mg PO DAILY simvastatin 40 mg PO DAILY HPI HPI Comments History of Present Illness Details 53-year-old male presents today for a fo llow-up after testing. He had a exercise stress test with nuclear images, a 7 day holter, and echocardiogram. He reports he has been doing well. but still has the palpitations, feels tired. and short of breath. He states his shortness of breath has been for years and his albuterol helps. He gets palpitations which he states happens 2-3 times per week and feeling like an electrical feeling, tightness in his chest (left side) and is accompanied by dizziness. He reports mild swelling in his legs on an occasion. He denies chest pain otherwise. He states he drinks 1-2 cups of coffee and walks on occasion for exercise, and dose eat some salt. He is going for a colonoscopy and a knee surgery soon. 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 Cognitive needs: No Hearing needs: No Vision needs: No Review of Systems Const Denies chills, Denies fatigue, Denies fever(s), Denies frequent falls, Denies weakness, Denies weight gain and Denies weight loss ENT Denies dizziness Card Denies chest pain, Denies leg edema, Denies lightheadedness, Denies palpitations, Reports dyspnea and Denies dyspnea on exertion Resp Denies cough, Reports dyspnea and Denies dyspnea on exertion GI Denies hematochezia Musc Denies abnormal gait, Denies muscle weakness, Denies numbness, Denies radiating pain into limb and Denies tingling Neuro Denies abnormal gait, Denies dizziness, Denies frequent falls, Denies numbness, Denies tingling and Denies weakness Endo Denies fatigue and Denies palpitations Physical Exam Vital Signs: Last Vital Signs Pulse 76 10/26/23 12:59 BP 120/60 10/26/23 12:59 BMI result Body Mass Index 35.0 Const General: healthy appearing and no acute distress Orientation/consciousness: patient oriented x3 HEENT Head: Yes normal to inspection Eyes General: appearance normal, both eyes and all related structures Neck Neck: Yes normal visual inspection Chest Chest palpation & inspection: normal inspection of the chest Resp Effort & Inspection: normal respiratory effort Auscultation: clear to auscultation bilaterally Cardio Jugular venous distension: no JVD Palpation: normal PMI Rate: regular rate Rhythm: regular rhythm Heart sounds: S1 normal heart sound present, S2 normal heart sound present, no click, no gallops, no murmurs and no rubs GI Inspection: Yes normal to inspection Palpation (GI): Soft to palpation Skin General skin exam: no rashes or lesions noted Neuro General: patient oriented x3 Extrem General: Yes normal to inspection Psych Appearance: grossly normal Office Procedures EKG Details: EKG today. Normal Sinus Rhythm. [id number]-Dttwa. Rate 76 bpm. QRS 134ms. QTc 472ms. [id number], Complete Results Reviewed Results Reviewed: 7 Day Holter: 1. Patient was monitored for total period of 7 days 2. Baseline was normal sinus with average heart of 70 beats per minute. 3. Frequent PACs noted with total burden of 2.4% with 11 total SVT runs, fastest at 178 beats per minute and longest at 11 beats 4. No significant pauses noted 5. Patient reported 5 events but only 3 symptoms in the diary with elevated heart rate or palpitations correlating with normal sinus rhythm Echocardiogram: Conclusions: - 1. Technically difficult study 2. Hyperdynamic LV ejection fraction greater than 70% with impaired relaxation filling pattern with mildly increased gradient across the LVOT suggestive dynamic obstruction of unclear etiology 3. Normal cardiac valvular Dopplers Stress test Nuclear images: 1. Myocardial perfusion imaging study shows no clear evidence of any ischemia or infarction. Probably normal myocardial perfusion. 2. Gated LVEF is 67% during stress and 74% during rest. 3. Transient ischemic dilatation not present. Assessment & Plan Assessment & Plan (1) Preoperative cardiovascular examination: Code(s): Z01.810 - Encounter for preprocedural cardiovascular examination (2) Heart palpitations: Code(s): R00.2 - Palpitations (3) Hypertension: Code(s): I10 - Essential (primary) hypertension Plan Will change metoprolol succinate to metoprolol tartrate 50mg BID. Blood pressure today within goal. Patient is an intermiedate risk for surgery. Advise good hydration before going NPO for procedure. Follow-up in 3 months Medications: New metoprolol tartrate STOP METOPROLOL SUCCINATE (ONCE A DAY) AND START THIS TWICE A DAY 50 mg PO BID 90 days 180 tabs 3RF Discontinued metoprolol succinate ER Discontinued Reason: Doctor's Order 50 mg PO DAILY 90 tabs 0RF I10 - Essential (primary) hypertension Coding Level of Care Code Est Pt Level 3 (79385) Diagnoses Preoperative cardiovascular examination Z01.810 Heart palpitations R00.2 Hypertension I10 CPT Codes EKG - CPT: [id number], Complete ([id number])
== END 2023-10-26 13:55 | disposition home or self-care (01) ==
PROVIDERS: PCP Nurse Practitioner Family; Visit Provider Nurse Practitioner
DX: I10 Essential (primary) hypertension (principal); R00.2 Palpitations
CPT/HCPCS: 93010; 99213

== ENCOUNTER → 2023-10-26 12:52 | Outpatient (BNVA) | payer OTHER, SELFPAY | PROVIDERS: PCP Nurse Practitioner Family; Visit Provider Nurse Practitioner | DX: Z01.810 Encounter for preprocedural cardiovascular examination (principal); R00.2 Palpitations; I10 Essential (primary) hypertension | CPT/HCPCS: 93005; 99212 ==

== ENCOUNTER 2023-11-02 13:48 | Outpatient (AMB) | payer OTHER, SELFPAY ==
--- NOTE | 2023-11-02 13:51 | A.OFFPC_ITS ---
Vital Signs 11/02/23 13:53 Height 6 ft Weight 257 lb BMI 34.9 BP 130/82 Blood Pressure Location Lt brachial Position Sitting Pulse 88 Pulse Source Pulse Oximeter Pulse Oximetry (%) 97 Oxygen Delivery Method Room Air Intake Visit Reasons: F/U on DM, HLD, HTN, thyroid Intake Note: Patient is here to follow up on DM, HTN, HLD, Thyroid. [employer] Required: Yes [employer] Language: Manager Of Development Name: Annita ([id number]) Information Interpreted: non-clinical & clinical Family Day Carer: Not Required per policy Accompanied by: Self / Same As Patient Allergies No Known Allergies Allergy (Verified 11/03/23 06:08) Medication List - Last Reconciled 11/03/23 by Dirk Woodall MD acetaminophen (Tylenol) 650 mg (2 x 325 mg) PO Q6H PRN albuterol sulfate 90 mcg/actuation (Ventolin HFA) 2 puffs inhalation Q4-6H PRN amlodipine (Norvasc) 5 mg PO DAILY aspirin 81 mg PO DAILY cholestyramine (with sugar) 4 gram 4 grams PO BID cyclobenzaprine 5 mg PO BEDTIME PRN divalproex (Depakote) 500 mg PO BID fluticasone propionate 100 mcg/actuation (Flovent Diskus) 2 inhalations inhalation BID levothyroxine (Synthroid) 50 mcg PO DAILY losartan-hydrochlorothiazide 100-25 mg (Hyzaar) 1 tab PO DAILY melatonin 5 mg PO BEDTIME PRN meloxicam 7.5 mg PO DAILY metformin 500 mg PO DAILY metoprolol tartrate 50 mg PO BID 90 days montelukast (Singulair) 10 mg PO DAILY omeprazole 20 mg PO DAILY oxybutynin chloride 5 mg PO DAILY peg 3350-electrolytes 236-22.74-6.74 -5.86 gram (Golytely) 240 mL PO Q10M 1 day quetiapine 50 mg PO DAILY sertraline (Zoloft) 50 mg PO DAILY simvastatin 40 mg PO DAILY Tobacco use date assessed: 11/02/23 Dental Screening Dental Screen Date: 11/02/23 Did you have a dental visit in the last 12 months?: No Did you have a dental problem in the last 6 months where you did not have access to dental care?: No Was dental information given to patient?: No HPI F/U on DM, HLD, HTN, thyroid HPI Details 53-year-old male presents to the office alone. A court interpreter is required and services from the iPad are utilized. I inform the patient that I will be his new provider as his current provider has left the practice. Patient agrees. Patient reports that recently he has been having twitches internally. He describes them as queasy feeling sick in his stomach or funny sensations under the skin. He had some cramping sensation in the legs. 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 Patient speaks very softly but appropriately. Does not report any symptoms of chest pain or shortness of breath. [facility] Medical History (Updated 11/03/23 @ 06:14 by Dirk Woodall MD) Bipolar disorder COPD (chronic obstructive pulmonary disease) Diabetes Surgical History History of esophagogastroduodenoscopy (EGD) History of colonoscopy History of bladder surgery Family History (Updated 11/02/23 @ 14:02 by EVENS Leal) Father Prostate cancer Other Mental health disorder Substance use disorder Social History (Updated 11/02/23 @ 14:02 by EVENS Leal) Housing: House Alcohol intake: former Patient Tobacco Use Status: Former Tobacco user Years Smoked: pt quit 15 years ago e-Cigarette/Vaping Use: Never Used Second Hand Smoke Exposure: Yes service: No Current occupational status: unemployed 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 1. Little interest or pleasure in doing things: several days 2. Feeling down, depressed, or hopeless: several days 3. Trouble falling or staying asleep, or sleeping too much: several days 4. Feeling tired or having little energy: several days 5. Poor appetite or overeating: more than half the days (over eating) 6. Feeling bad about yourself - or that you are a failure or have let yourself or your family down: several days 7. Trouble concentrating on things, such as reading the newspaper or watching television: more than half the days 8. Moving or speaking so slowly that other people could have noticed. Or the opposite - being so fidgety or restless that you have been moving around a lot more than usual: several days 9. Thoughts that you would be better off or of hurting yourself in some way: several days Total score: 11 Depression Screening Interpretation: Positive Depression Screening Follow-up: Existing condition and In treatment Depression Screening Done: Yes Source: Developed by Drs. Song Snyder, Ashley Ashford, Papa Gilliam and colleagues, with an educational maryjo from [employer]. Thrive Questionnaire Date Thrive assessed: 11/02/23 I am a: Patient What is your living situation today?: I have a steady place to live Within the past 12 months, did the food you bought not last and you didn't have the money to get more?: Never true Within the past 12 months, did you worry whether your food would run out before you got money to buy more?: Never true Do you have trouble paying for medicines?: No Do you have trouble getting transportation to medical appointments?: No Do you have trouble paying your heating and electricity bill?: No Do you have trouble taking care of your child, family member or friend?: No Do you have trouble with day-to-day activities such as bathing, preparing meals, shopping, managing finances, etc.?: No Are you currently unemployed and looking for a job?: No Are you interested in more education?: No Currently or been in a relationship where the following occur: no concerns reported THRIVE Score: 0 AUDIT C Alcohol Use Questionnaire (AUDIT-C) 1. How often do you have a drink containing alcohol?: Never Total Score: 0 ISABEL-7 AMB Questionnaire ISABEL-7 Date ISABEL - 7 assessed: 11/02/23 Feeling nervous, anxious, or on edge: 2 = More than half the days Not being able to stop or control worryin = Several days Worrying too much about different things: 1 = Several days Trouble relaxin = Several days Being so restless that it is hard to sit still: 2 = More than half the days Becoming easily annoyed or irritable: 3 = Nearly every day Feeling afraid as if something awful might happen: 1 = Several days Total ISABEL-7 score (0-4 normal; 5-9 mild; 10-14 moderate; 15-21 severe): 11 Source: Developed by Drs. Song Snyder, Ashley Ashford, Papa Gilliam and colleagues, with an educational maryjo from [employer]. Physical exam (Primary Care) Vital Signs: Last Vital Signs Pulse 88 11/02/23 13:53 BP 130/82 11/02/23 13:53 Pulse Ox 97 11/02/23 13:53 Oxygen Delivery Method Room Air 11/02/23 13:53 BMI result Body Mass Index 34.9 BMI Assessment/Plan discussion: High (1 lb per week weight loss suggested.) BMI High, discussed plan: lifestyle, weight reduction and dietary Tobacco/Smoking Status: Tobacco use Status Tobacco use date assessed 11/02/23 11/02/23 14:08 Patient Tobacco Use Status Former Tobacco user 11/02/23 14:02 e-Cigarette/Vaping Use Never Used 11/02/23 14:08 PHQ-9: PHQ-9 Score PHQ-9: Total score 11 11/02/23 15:14 Depression Screening Interpretation: Positive Depression Screening Follow-up: Existing condition and In treatment Thrive Assessment: Date of Thrive Assessment Date Thrive assessed 11/02/23 11/02/23 14:08 Currently or been in a relationship where the following occur: no concerns reported Const General: cooperative and healthy appearing Nutritional Appearance: well nourished Orientation/consciousness: patient oriented x3 Limitations: no limitations HENMT Head: Yes normal to inspection Eyes General: appearance normal, both eyes and all related structures Neck Neck: Yes normal visual inspection Chest Chest palpation & inspection: normal palpation of entire chest wall Resp Effort & Inspection: normal respiratory effort Neuro General: patient oriented x3 Results Reviewed Results Reviewed: Blood work, cardiology note reviewed. 15 minutes spent reviewing the labs. Assessment and Plan Assessment & Plan (1) Bipolar disorder: Code(s): F31.9 - Bipolar disorder, unspecified Plan: Some of the symptoms patient was experiencing could be related to this condition or the medications. I encouraged him to speak to the psychiatrist and therapist. (2) COPD (chronic obstructive pulmonary disease): Code(s): J44.9 - Chronic obstructive pulmonary disease, unspecified Plan: Patient is condition is stable. (3) Diabetes: Code(s): E11.9 - Type 2 diabetes mellitus without complications Plan: A1c is 5.7. Well controlled on metformin. Orders: Orders Basic Metabolic Panel 11/02/23 F31.9 - Bipolar disorder, unspecified, J44.9 - Chronic obstructive pulmonary disease, unspecified Complete Blood Count no Diff 11/02/23 F31.9 - Bipolar disorder, unspecified, J44.9 - Chronic obstructive pulmonary disease, unspecified Lipid Panel 11/02/23 F31.9 - Bipolar disorder, unspecified, J44.9 - Chronic obstructive pulmonary disease, unspecified Liver Panel 11/02/23 F31.9 - Bipolar disorder, unspecified, J44.9 - Chronic obstructive pulmonary disease, unspecified Thyroid Stimulating Hormone 11/02/23 F31.9 - Bipolar disorder, unspecified, J44.9 - Chronic obstructive pulmonary disease, unspecified UA and rflx microscopic 11/02/23 F31.9 - Bipolar disorder, unspecified, J44.9 - Chronic obstructive pulmonary disease, unspecified Coding Level of Care Code Est Pt Level 4 (47441) Diagnoses Bipolar disorder F31.9 COPD (chronic obstructive pulmonary disease) J44.9 Diabetes E11.9
[2023-11-02 13:53] VITALS: BP 130/82; PULSE 88; O2SAT 97; BMI 34.9
== END 2023-11-02 14:38 | disposition home or self-care (01) ==
PROVIDERS: PCP Internal Medicine; Visit Provider Internal Medicine
DX: E11.9 Type 2 diabetes mellitus without complications (principal); J44.9 Chronic obstructive pulmonary disease, unspecified; F31.9 Bipolar disorder, unspecified
CPT/HCPCS: 99214

== ENCOUNTER 2023-11-30 10:40 | Outpatient (REF) | payer OTHER, SELFPAY ==
[2023-11-30 11:25] LABS: Appearance Urine Clear; Color Urine Yellow; Glucose Urine UA Negative (Negative); Leukocyte Esterase Urine Negative (Negative); Nitrite Urine Negative (Negative); PH 6.5 (5.0-9.0); Specific Gravity - Urine 1.015 (1.005-1.025); Urine Blood Negative (Negative); Urine Ketones Negative (Negative); Urine Protein Negative (Neg-Trace)
[2023-11-30 11:27] LABS: Hematocrit 40.9 % (42.0-52.0); Hemoglobin 14.3 g/dl (14.0-18.0); Mean Corpuscular Hemoglobin 30.2 pg (27.0-33.0); Mean Corpuscular Volume 86.3 fL (80.0-98.0); Mean Platelet Volume 11.2 fL (9.4-12.4); Platelet Count 216 X10*3/uL (160-400); Red Blood Count 4.74 X10*6/uL (4.60-5.80); Red Cell Distribution Width 12.8 % (11.0-16.0); White Blood Count 4.8 X10*3/uL (4.8-10.8)
[2023-11-30 12:22] LABS: Alanine Aminotransferase 25 U/L (0-40); Albumin Level 4.5 g/dL (3.5-5.0); Alkaline Phosphatase 66 U/L (39-117); Anion Gap 10 (12-20); Aspartate Amino Transferase 21 U/L (5-37); Bilirubin Direct 0.3 mg/dL (0.0-0.5); Bilirubin Total 0.9 mg/dL (0.0-1.0); Blood Urea Nitrogen 12 mg/dL (9-16); Carbon Dioxide 30 mmol/L (22-29); Chloride 104 mmol/L (96-108); Cholesterol 139 mg/dL (<200); Estimated Glomerular Filt Rate > 60; Glucose Random 97 mg/dL (60-115); HDL Cholesterol 41 mg/dL (>40); LDL Cholesterol Calculated 71 mg/dL (<100); Potassium 3.5 mmol/L (3.3-5.1); Sodium 140 mmol/L (135-145); Thyroid Stimulating Hormone 0.92 uIU/mL (0.32-4.0); Triglycerides 138 mg/dL (<150)
== END 2023-11-30 10:41 | disposition home or self-care (01) ==
LOC: HO.LAB 10:40
PROVIDERS: PCP Internal Medicine; Visit Provider Nurse Practitioner Family
DX: F31.9 Bipolar disorder, unspecified (principal); J44.9 Chronic obstructive pulmonary disease, unspecified
CPT/HCPCS: 36415; 80048; 80061; 80076; 81003; 84443; 85027

== ENCOUNTER 2023-12-08 13:19 | Outpatient (AMB) | payer OTHER, SELFPAY ==
--- NOTE | 2023-12-08 13:26 | MHC.PC.OV ---
Vital Signs 12/08/23 13:28 Height 6 ft Weight 258 lb 6 oz BMI 35.0 BP 110/74 Blood Pressure Location Lt brachial Position Sitting Pulse 81 Pulse Source Pulse Oximeter Pulse Oximetry (%) 96 Oxygen Delivery Method Room Air Intake Visit Reasons: 1M follow up Intake Note: Patient is here to follow up on COPD, DM, Bipolar disorder. Carding Machine Feeder Required: Yes Carding Machine Feeder Language: Municipal Engineer Name: Dylan ([id number]) Information Interpreted: non-clinical & clinical Cartoonist Special Effects: Not Required per policy Accompanied by: Self / Same As Patient Allergies No Known Allergies Allergy (Verified 12/08/23 14:14) Medication List - Last Reconciled 12/08/23 by Dirk Woodall MD acetaminophen (Tylenol) 650 mg (2 x 325 mg) PO Q6H PRN albuterol sulfate 90 mcg/actuation (Ventolin HFA) 2 puffs inhalation Q4-6H PRN amlodipine (Norvasc) 5 mg PO DAILY aspirin 81 mg PO DAILY cholestyramine (with sugar) 4 gram 4 grams PO BID cyclobenzaprine 5 mg PO BEDTIME PRN divalproex (Depakote) 500 mg PO BID fluticasone propionate 100 mcg/actuation (Flovent Diskus) 2 inhalations inhalation BID levothyroxine (Synthroid) 50 mcg PO DAILY losartan-hydrochlorothiazide 100-25 mg (Hyzaar) 1 tab PO DAILY melatonin 5 mg PO BEDTIME PRN meloxicam 7.5 mg PO DAILY metformin 500 mg PO DAILY metoprolol tartrate 50 mg PO BID 90 days montelukast (Singulair) 10 mg PO DAILY omeprazole 20 mg PO DAILY oxybutynin chloride 5 mg PO DAILY peg 3350-electrolytes 236-22.74-6.74 -5.86 gram (Golytely) 240 mL PO Q10M 1 day quetiapine 50 mg PO DAILY sertraline (Zoloft) 50 mg PO DAILY simvastatin 40 mg PO DAILY Tobacco use date assessed: 12/08/23 Dental Screening Dental Screen Date: 12/08/23 Did you have a dental visit in the last 12 months?: No Did you have a dental problem in the last 6 months where you did not have access to dental care?: No Was dental information given to patient?: No HPI 1M follow up HPI Details 53-year-old male presents to the office for a follow-up visit. Symptoms that he had described in the last visit are not troubling him now. He has not seen the psychiatrist, continuing the same medications. Continues to live alone and able to take care of himself. Patient has been taking a lot of medications and is expressing if some of them could be discontinued. He is able to function and do all activities of daily living. [facility] Medical History (Updated 12/08/23 @ 14:17 by Dirk Woodall MD) Allergic rhinitis Bipolar disorder COPD (chronic obstructive pulmonary disease) Diabetes Surgical History History of esophagogastroduodenoscopy (EGD) History of colonoscopy History of bladder surgery Family History Father Prostate cancer Other Mental health disorder Substance use disorder Social History Housing: House Alcohol intake: former Patient Tobacco Use Status: Former Tobacco user Years Smoked: pt quit 15 years ago e-Cigarette/Vaping Use: Never Used Second Hand Smoke Exposure: Yes service: No Current occupational status: unemployed 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 Song Snyder, Ashley Ashford, Papa Gilliam and colleagues, with an educational maryjo from [employer]. Physical exam (Primary Care) Vital Signs: Last Vital Signs Pulse 81 12/08/23 13:28 BP 110/74 12/08/23 13:28 Pulse Ox 96 12/08/23 13:28 Oxygen Delivery Method Room Air 12/08/23 13:28 BMI result Body Mass Index 35.0 Tobacco/Smoking Status: Tobacco use Status Tobacco use date assessed 12/08/23 12/08/23 13:38 Patient Tobacco Use Status Former Tobacco user 12/08/23 13:27 e-Cigarette/Vaping Use Never Used 12/08/23 13:27 Thrive Assessment: Date of Thrive Assessment Date Thrive assessed 11/02/23 12/08/23 13:27 Const General: cooperative and healthy appearing Nutritional Appearance: well nourished Orientation/consciousness: patient oriented x3 Limitations: no limitations HENMT Head: Yes normal to inspection Eyes General: appearance normal, both eyes and all related structures Neck Neck: Yes normal visual inspection Chest Chest palpation & inspection: normal palpation of entire chest wall Resp Effort & Inspection: normal respiratory effort Neuro General: patient oriented x3 Assessment and Plan Assessment & Plan (1) Allergic rhinitis: Code(s): J30.9 - Allergic rhinitis, unspecified Plan: This condition is stable. Singulair and Flonase has been discontinued. (2) Diabetes: Code(s): E11.9 - Type 2 diabetes mellitus without complications Plan: Last A1c is 5.6. Metformin has been put on hold. Using an property analyst all his medications were reviewed. Medications: Refilled albuterol sulfate 90 mcg/actuation (Ventolin HFA) 2 puffs inhalation Q4-6H PRN 8.5 grams 2RF shortness of breath or wheezing J44.9 - Chronic obstructive pulmonary disease, unspecified, J45.909 - Unspecified asthma, uncomplicated amlodipine (Norvasc) 5 mg PO DAILY 90 tabs 0RF I10 - Essential (primary) hypertension divalproex (Depakote) 500 mg PO BID 60 tabs 2RF F31.9 - Bipolar disorder, unspecified losartan-hydrochlorothiazide 100-25 mg (Hyzaar) 1 tab PO DAILY 90 tabs 1RF I10 - Essential (primary) hypertension montelukast (Singulair) 10 mg PO DAILY 90 tabs 0RF J30.9 - Allergic rhinitis, unspecified, J45.909 - Unspecified asthma, uncomplicated omeprazole 20 mg PO DAILY 90 caps 0RF K21.9 - Gastro-esophageal reflux disease without esophagitis oxybutynin chloride 5 mg PO DAILY 90 tabs 0RF N40.0 - Benign prostatic hyperplasia without lower urinary tract symptoms sertraline (Zoloft) 50 mg PO DAILY 90 tabs 0RF F32.A - Depression, unspecified simvastatin 40 mg PO DAILY 90 tabs 0RF E78.5 - Hyperlipidemia, unspecified metformin 500 mg PO DAILY 90 tabs 1RF E11.9 - Type 2 diabetes mellitus without complications acetaminophen (Tylenol) 650 mg (2 x 325 mg) PO Q6H PRN 60 tabs 0RF fever M54.9 - Dorsalgia, unspecified aspirin 81 mg PO DAILY 90 tabs 1RF I10 - Essential (primary) hypertension cholestyramine (with sugar) 4 gram administer w/meal; avoid other meds within 1hr before or 4-6hr after dose 4 grams PO BID 60 ea 6RF 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
[2023-12-08 13:28] VITALS: BP 110/74; PULSE 81; O2SAT 96; BMI 35.0
== END 2023-12-08 14:13 | disposition home or self-care (01) ==
PROVIDERS: PCP Internal Medicine; Visit Provider Internal Medicine
DX: J30.9 Allergic rhinitis, unspecified (principal); E11.9 Type 2 diabetes mellitus without complications
CPT/HCPCS: 99214

== ENCOUNTER 2023-12-13 12:05 | Outpatient (AMB) | payer OTHER, SELFPAY ==
[2023-12-13 12:10] VITALS: BP 154/93; PULSE 83; BMI 34.7
--- NOTE | 2023-12-13 12:10 | MHC.OFFVIS ---
Intake Vital Signs 12/13/23 12:10 Height 6 ft Weight 256 lb 2.834 oz BMI 34.7 BP 154/93 H Blood Pressure Location Lt brachial Position Sitting Pulse 83 Intake Visit Reasons: 3 month follow up Intake Note: Patient returns to office in 3 months follow up of Post-cholecystectomy syndrome. CC: Patient states that the cholestyramine continues to help him. [place] reports that he continues having a lot of gas and like colics . 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 Obviously, we would also have to wait on the EGD as well until the cardiac clearance has been established. There is some question of WPW syndrome but the dx is not completely clear at this time. The cholestyramine is working well for his diarrhea. ROV 3 mos EKG EGD/COLONOSCOPY BIOPSY TODAY'S VISIT Vincentian #Thalia Dupont His diarrhea is well controlled but he has a lot of gas. I am unsure if this is indicating poor digestion, or a s/e of the carafate. Will try adding creon. He has completed his cardiology work up and is cleared for EGD/colonoscopy. I send a note to the schedulers and he should expect a call to schedule. ROV 6 weeks to eval creon. [facility] Medical History (Updated 12/13/23 @ 12:34 by MAMADOU Hong) Precordial chest pain Heart palpitations Nausea and vomiting Pre-op examination RUQ abdominal tenderness Adult general medical exam Screening for colon cancer Bilateral hip pain Back pain Screening for prostate cancer Allergic rhinitis Bipolar disorder COPD (chronic obstructive pulmonary disease) Diabetes Surgical History (Updated 12/13/23 @ 12:34 by MAMADOU Hong) History of cholecystectomy History of esophagogastroduodenoscopy (EGD) History of colonoscopy History of bladder surgery Family History Father Prostate cancer Other Mental health disorder Substance use disorder Social History Housing: House Alcohol intake: former Patient Tobacco Use Status: Former Tobacco user Years Smoked: pt quit 15 years ago e-Cigarette/Vaping Use: Never Used Second Hand Smoke Exposure: Yes service: No Current occupational status: unemployed 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 Cognitive needs: No Hearing needs: No Vision needs: Yes (glasses) Review of Systems Const Denies fatigue, Denies fever(s), Denies night sweats, Denies poor appetite and Denies weight loss Eyes Details: glasses Reports requires corrective lenses ENT Reports Normal hearing present, Denies dental pain, Denies dysphagia, Denies hearing loss, Denies mouth pain, Denies odynophagia, Denies throat swelling, Denies tongue swelling and Reports other (Dentition adequate) Card Reports no additional complaints Resp Reports no additional complaints GI Details: Denies abdominal pain, Denies melena, Denies bloating, Denies hematochezia, Denies constipation, Denies GI cramping, Denies dysphagia, Reports excessive flatus, Denies early satiety, Reports heartburn, Reports diarrhea, Denies nausea, Denies odynophagia, Denies vomiting and Denies hematemesis Skin/Breast Denies pruritus, Denies lesions, Denies rash and Denies jaundice Neuro Reports Normal hearing present and Denies Abnormal speech present Endo Denies fatigue Aller/Immun Denies throat swelling and Denies tongue swelling Physical Exam Vital Signs: Last Vital Signs Pulse 83 12/13/23 12:10 BP 154/93 H 12/13/23 12:10 BMI result Body Mass Index 34.7 Const General: cooperative, no acute distress, well developed and well groomed Nutritional Appearance: well nourished and obese centrally obese Orientation/consciousness: oriented to person, oriented to place and oriented to time Limitations: language barrier HEENT Head: Yes normocephalic and Yes atraumatic Eyes General: appearance normal, both eyes and all related structures Pupils: Equal, round and reactive pupils present Neck Neck: Yes normal visual inspection and Yes no lymphadenopathy Thyroid: Thyroid normal Resp Effort & Inspection: normal respiratory effort and able to speak in complete sentences Auscultation: clear to auscultation bilaterally Cardio Rate: regular rate Rhythm: regular rhythm Heart sounds: Normal, physiologic split S2 sound present Peripheral pulses: radial pulses present and posterior tibial pulses present GI Inspection: No distended, No Abdominal panniculus present and Yes obesity Palpation (GI): Soft to palpation, nontender, no guarding, not rigid and No hepatosplenomegaly present Percussion: Yes normal to percussion Auscultation: normal bowel sounds Rectal Exam - Male: Yes deferred Skin General skin exam: no rashes or lesions noted, turgor normal, skin not dry, no jaundice, No spider nevi and no striae Rashes: no rashes Nails: normal Neuro General: oriented to person, oriented to place and oriented to time Cranial nerves: Yes Equal, round and reactive pupils present and Yes Normal hearing present Speech: No Abnormal speech present Extrem General: Yes normal to inspection, No clubbing, No cyanosis and No edema Psych Appearance: grossly normal and well kempt Mental Status: mental status grossly normal Speech and movement: Normal speech and movement present Affect: normal affect Attitude: cooperative Thought process: Normal thought process present and not confabulating Thought content: Normal thought content present Insight: Limited insight present (Psych) Judgement: Limited judgement present (Psych) Assessment & Plan Assessment & Plan (1) 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 I am unsure if this is indicating poor digestion, or a s/e of the carafate. Will try adding creon. He has completed his cardiology work up and is cleared for EGD/colonoscopy. I send a note to the schedulers and he should expect a call to schedule. ROV 6 weeks to kaitlyn iyer. EGD/COLONOSCOPY BIOPSY Medications: New zisblw-jesqngta-ncoeril 24,000-76,000 -120,000 unit (Creon) administer with meals and/or snacks 2 caps PO BID 30 days 120 caps 6RF K58.9 - Irritable bowel syndrome without diarrhea Refilled omeprazole 20 mg PO DAILY 90 caps 0RF K21.9 - Gastro-esophageal reflux disease without esophagitis Coding Level of Care Code Est Pt Level 3 (95875) Diagnoses Post-cholecystectomy syndrome K91.5 GERD (gastroesophageal reflux disease) K21.9 Bmihn-Rptsozthl-Wenba (WPW) pattern I45.6
== END 2023-12-13 12:39 | disposition home or self-care (01) ==
PROVIDERS: PCP Nurse Practitioner Family; Visit Provider Nurse Practitioner
DX: K91.5 Postcholecystectomy syndrome (principal); K21.9 Gastro-esophageal reflux disease without esophagitis; I45.6 Pre-excitation syndrome
CPT/HCPCS: 99213

== ENCOUNTER → 2023-12-13 12:05 | Outpatient (BNVA) | payer OTHER, SELFPAY | PROVIDERS: PCP Nurse Practitioner Family; Visit Provider Nurse Practitioner | DX: S83.242D Other tear of medial meniscus, current injury, left knee, subsequent encounter (principal); K91.5 Postcholecystectomy syndrome; K21.9 Gastro-esophageal reflux disease without esophagitis; I45.6 Pre-excitation syndrome | CPT/HCPCS: 99212 ==

== ENCOUNTER 2023-12-13 12:44 | Outpatient (AMB) | payer OTHER, SELFPAY ==
[2023-12-13 12:46] VITALS: BMI 34.7
--- NOTE | 2023-12-13 12:46 | MHC.OFFVIS ---
Intake Vital Signs 12/13/23 12:46 Height 6 ft Weight 256 lb BMI 34.7 Intake Visit Reasons: Pre-Lt Knee Intake Note: Mr. Grayson presents with complaints of progressively worsening left knee pain and giving way. He describes his pain as sharp in nature. Most of his pain is along the medial and lateral aspects of his knee. He did injure his knee approximately 1 year ago. He twisted his knee and had acute onset of pain. Since that time his symptoms have gotten worse in spite of continued non operative treatments. He has had injections in the past which gave him minimal relief. He has also done physical therapy which aggravated his pain. He has tried Tylenol and anti-inflammatory medicines which gave him minimal relief. He states that his left knee will give out several times per day. Brainer Name: [id number] Allergies No Known Allergies Allergy (Verified 12/13/23 12:51) Medication List - Last Reconciled 12/13/23 by Bg Shahid MD acetaminophen (Tylenol) 650 mg (2 x 325 mg) PO Q6H PRN albuterol sulfate 90 mcg/actuation (Ventolin HFA) 2 puffs inhalation Q4-6H PRN amlodipine (Norvasc) 5 mg PO DAILY aspirin 81 mg PO DAILY cholestyramine (with sugar) 4 gram 4 grams PO BID cyclobenzaprine 5 mg PO BEDTIME PRN divalproex (Depakote) 500 mg PO BID fluticasone propionate 100 mcg/actuation (Flovent Diskus) 2 inhalations inhalation BID levothyroxine (Synthroid) 50 mcg PO DAILY bysuke-oiotdyfc-siuwtqc 24,000-76,000 -120,000 unit (Creon) 2 caps PO BID 30 days losartan-hydrochlorothiazide 100-25 mg (Hyzaar) 1 tab PO DAILY melatonin 5 mg PO BEDTIME PRN meloxicam 7.5 mg PO DAILY metformin 500 mg PO DAILY metoprolol tartrate 50 mg PO BID 90 days montelukast (Singulair) 10 mg PO DAILY omeprazole 20 mg PO DAILY oxybutynin chloride 5 mg PO DAILY peg 3350-electrolytes 236-22.74-6.74 -5.86 gram (Golytely) 240 mL PO Q10M 1 day quetiapine 50 mg PO DAILY sertraline (Zoloft) 50 mg PO DAILY simvastatin 40 mg PO DAILY [facility] Medical History Precordial chest pain Heart palpitations Nausea and vomiting Pre-op examination RUQ abdominal tenderness Adult general medical exam Screening for colon cancer Bilateral hip pain Back pain Screening for prostate cancer Allergic rhinitis Bipolar disorder COPD (chronic obstructive pulmonary disease) Diabetes Surgical History History of cholecystectomy History of esophagogastroduodenoscopy (EGD) History of colonoscopy History of bladder surgery Family History Father Prostate cancer Other Mental health disorder Substance use disorder Social History Housing: House Alcohol intake: former Patient Tobacco Use Status: Former Tobacco user Years Smoked: pt quit 15 years ago e-Cigarette/Vaping Use: Never Used Second Hand Smoke Exposure: Yes service: No Current occupational status: unemployed 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 Cognitive needs: No Hearing needs: No Vision needs: Yes (glasses) Physical Exam Vital Signs: BMI result Body Mass Index 34.7 Const Other: Well-nourished well-developed very friendly male awake alert and oriented x3 in no acute distress Extrem Other: Bilateral lower extremity examination shows good capillary refill, no skin lesions noted, normal sensation light touch Left knee examination shows a minimal effusion, minimal crepitus with range of motion, tenderness along his medial joint line, positive Elias's test, no instability Results Reviewed Results Reviewed: MRI of the patient's left knee shows minimal diffuse degenerative changes as well as a tear of the medial meniscus, no acute bony abnormalities Assessment & Plan Assessment & Plan (1) Tear of medial meniscus of left knee: Code(s): S83.242A - Other tear of medial meniscus, current injury, left knee, initial encounter Plan Mr. Grayson presents with left knee pain and mechanical symptoms due to a medial meniscus tear. I had a lengthy discussion with the patient regarding the treatment options. At this point he has failed continued non operative treatments. The risks and benefits of left knee arthroscopic surgery were discussed at length with the patient. The patient wishes to proceed with surgery. Surgery will most likely involve left knee diagnostic arthroscopy with arthroscopic partial medial meniscectomy. The patient does understand that he may not get 100% relief of his symptoms depending on the severity of his degenerative changes. The patient was given a prescription for Percocet at his preoperative appointment. He will follow-up as instructed. Feel free to call me at any time should questions regarding his orthopedic management arise. I spent 22 minutes in reviewing the patient's records and imaging studies, seeing the patient and documenting in the medical record. Medications: New oxycodone-acetaminophen 5-325 mg (Percocet) Partial Fill upon patient request. 1 tab PO Q6H 1 week PRN 20 tabs 0RF pain Coding Level of Care Code Est Pt Level 2 (89027) Diagnoses Tear of medial meniscus of left knee S83.242A
== END 2023-12-13 13:05 | disposition home or self-care (01) ==
PROVIDERS: PCP Internal Medicine; Visit Provider Orthopaedic Surgery
DX: S83.242A Other tear of medial meniscus, current injury, left knee, initial encounter (principal)
CPT/HCPCS: 99213

== ENCOUNTER 2023-12-15 15:09 | Outpatient (AMB) | payer OTHER, SELFPAY ==
[2023-12-15 15:21] VITALS: BP 114/70; PULSE 67; O2SAT 98; BMI 35.2
--- NOTE | 2023-12-15 15:21 | MHC.PC.OV ---
Vital Signs 12/15/23 15:21 Height 6 ft Weight 259 lb 4 oz BMI 35.2 BP 114/70 Blood Pressure Location Lt brachial Position Sitting Pulse 67 Pulse Source Pulse Oximeter Pulse Oximetry (%) 98 Oxygen Delivery Method Room Air Intake Visit Reasons: pre-op lf knee arthroscopy 12/23/23 Intake Note: Patient is here for a Pre-op for [facility] [place] scheduled with Dr. Shahid for Left knee Arthroscopy scheduled 12/23/2023. Pt will need labs: BMP, CBCD, A1C and EKG. . Geophysical Prospector Required: Yes Geophysical Prospector Language: Bulgarian Accompanied by: Self / Same As Patient Allergies No Known Allergies Allergy (Verified 12/15/23 15:36) Medication List - Last Reconciled 12/15/23 by Leonid Geller PA-C acetaminophen (Tylenol) 650 mg (2 x 325 mg) PO Q6H PRN albuterol sulfate 90 mcg/actuation (Ventolin HFA) 2 puffs inhalation Q4-6H PRN amlodipine (Norvasc) 5 mg PO DAILY aspirin 81 mg PO DAILY cholestyramine (with sugar) 4 gram 4 grams PO BID cyclobenzaprine 5 mg PO BEDTIME PRN divalproex (Depakote) 500 mg PO BID fluticasone propionate 100 mcg/actuation (Flovent Diskus) 2 inhalations inhalation BID levothyroxine (Synthroid) 50 mcg PO DAILY xlresd-qtzjdhaf-kpywltv 24,000-76,000 -120,000 unit (Creon) 2 caps PO BID 30 days losartan-hydrochlorothiazide 100-25 mg (Hyzaar) 1 tab PO DAILY melatonin 5 mg PO BEDTIME PRN meloxicam 7.5 mg PO DAILY metformin 500 mg PO DAILY metoprolol tartrate 50 mg PO BID 90 days montelukast (Singulair) 10 mg PO DAILY omeprazole 20 mg PO DAILY oxybutynin chloride 5 mg PO DAILY oxycodone-acetaminophen 5-325 mg (Percocet) 1 tab PO Q6H PRN 1 week peg 3350-electrolytes 236-22.74-6.74 -5.86 gram (Golytely) 240 mL PO Q10M 1 day quetiapine 50 mg PO DAILY sertraline (Zoloft) 50 mg PO DAILY simvastatin 40 mg PO DAILY Tobacco use date assessed: 12/08/23 HPI pre-op lf knee arthroscopy 12/23/23 HPI Details Patient is a 53-year-old male here today for preop visit. He is due for left knee arthroscopy on December 22 due to meniscal tear. He has a past medical history significant for diabetes, COPD, will Parkinson's white, anxiety, hyperlipidemia, hypothyroidism, hypertension Patient has no history of CVA, CO or Congestive heart failure. Type 2 diabetes: Blood sugars seem to be well controlled, most recent A1c of 5.7 and most recent random blood sugar at 97 .. Hypertension: Blood pressure acceptable today in office .. 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 Had stress test with did show some abnormalities unclear if he had gotten nuclear stress test for continued testing. He otherwise reports he has been asymptomatic without any chest pain, dizziness, heart palpitations. 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 Laboratory Tests 08/23/23 11/30/23 09:38 10:49 RBC 4.74 Hgb 14.3 Creatinine 0.88 Hemoglobin A1c % 5.7 Cholesterol 139 PFSH Medical History (Updated 12/15/23 @ 15:43 by Leonid Geller PA-C) Pre-op examination Precordial chest pain Heart palpitations Nausea and vomiting RUQ abdominal tenderness Adult general medical exam Screening for colon cancer Bilateral hip pain Back pain Screening for prostate cancer Allergic rhinitis Bipolar disorder COPD (chronic obstructive pulmonary disease) Diabetes Surgical History History of cholecystectomy History of esophagogastroduodenoscopy (EGD) History of colonoscopy History of bladder surgery Family History Father Prostate cancer Other Mental health disorder Substance use disorder Social History Housing: House Alcohol intake: former Patient Tobacco Use Status: Former Tobacco user Years Smoked: pt quit 15 years ago e-Cigarette/Vaping Use: Never Used Second Hand Smoke Exposure: Yes service: No Current occupational status: unemployed 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 Song Snyder, Ashley Ashford, Papa Gilliam and colleagues, with an educational maryjo from [employer]. Review of Systems Const Denies headache(s) Eyes Denies loss of vision ENT Denies vertigo, Denies dizziness, Denies headache(s) and Denies sore throat Card Denies chest pain, Denies leg edema and Denies lightheadedness Resp Denies cough, Denies hemoptysis and Denies wheezing GI Denies abdominal pain, Denies melena, Denies constipation, Denies diarrhea and Denies vomiting Denies dysuria, Denies urinary frequency and Denies urinary urgency Musc Denies arthralgias, Denies joint swelling, Denies numbness and Denies tingling Neuro Denies Abnormal speech present, Denies behavioral changes, Denies vertigo, Denies dizziness, Denies headache(s), Denies loss of vision, Denies memory loss, Denies numbness and Denies tingling Psych Denies anxiety, Denies behavioral changes, Denies depression, Denies memory loss and Denies panic attacks Shivam/Lymph Denies easy bleeding and Denies easy bruising Aller/Immun Denies wheezing Physical exam (Primary Care) Vital Signs: Last Vital Signs Pulse 67 12/15/23 15:21 BP 114/70 12/15/23 15:21 Pulse Ox 98 12/15/23 15:21 Oxygen Delivery Method Room Air 12/15/23 15:21 BMI result Body Mass Index 35.2 Tobacco/Smoking Status: Tobacco use Status Tobacco use date assessed 12/08/23 12/15/23 15:29 Patient Tobacco Use Status Former Tobacco user 12/15/23 15:29 e-Cigarette/Vaping Use Never Used 12/15/23 15:29 Thrive Assessment: Date of Thrive Assessment Date Thrive assessed 11/02/23 12/15/23 15:29 Const General: healthy appearing, no acute distress, alert and awake Nutritional Appearance: well nourished Orientation/consciousness: oriented to person, oriented to place and oriented to time HENMT Ears: TM's normal bilaterally General nose exam: Normal nasal mucous membranes and turbinates present Eyes Conjunctivae: conjunctivae normal Sclerae: sclerae normal Pupils: Equal, round and reactive pupils present Neck Neck: Yes no lymphadenopathy and Yes no JVD Thyroid: Thyroid normal Carotids: no bruits Resp Effort & Inspection: normal respiratory effort and not tachypneic Auscultation: no crackles, no rales, no rhonchi and no wheezes Cardio Rate: regular rate Rhythm: regular rhythm Heart sounds: no murmurs and normal S1 and S2 GI Palpation (GI): Soft to palpation, nontender, no hepatomegaly and no splenomegaly Auscultation: normal bowel sounds Skin General skin exam: no rashes or lesions noted and dry skin Neuro General: oriented to person, oriented to place and oriented to time Cranial nerves: Yes Equal, round and reactive pupils present Speech: No Abnormal speech present Gait exam (Neuro): Normal gait present Motor exam (neuro): no tremor noted Extrem Right upper extremity: full ROM Left upper extremity: full ROM Right lower extremity: full ROM; no edema Left lower extremity: full ROM; no edema Psych Mental Status: mental status grossly normal Speech and movement: Normal speech and movement present Affect: normal affect Attitude: cooperative Thought process: Normal thought process present Assessment and Plan Assessment & Plan (1) Pre-op examination: Code(s): Z01.818 - Encounter for other preprocedural examination Plan: Patient's most recent labs, EKG, and vitals today have been stable. Patient is low to moderate CV risk for needed arthroscopy surgery. Patient is medically clear for needed surgery. 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 reports he has been asymptomatic without dizziness, palpitations or syncopal episodes. . Medications: Discontinued fluticasone propionate 100 mcg/actuation (Flovent Diskus) Discontinued Reason: Insurance Denied 2 inhalations inhalation BID 60 ea 2RF J44.9 - Chronic obstructive pulmonary disease, unspecified, J45.909 - Unspecified asthma, uncomplicated Coding Level of Care Code Est Pt Level 4 (88523) Diagnoses Pre-op examination Z01.818 Bucket-handle tear of medial meniscus of left knee as current injury, subsequent encounter S83.212D Encounter type: subsequent encounter Meniscus tear of knee type: bucket-handle Tear current or old: current Afrhl-Dybtxdkih-Xcjah (WPW) pattern I45.6
== END 2023-12-15 15:46 | disposition home or self-care (01) ==
PROVIDERS: PCP Internal Medicine; Visit Provider Physician Assistant
DX: I45.6 Pre-excitation syndrome (principal); Z01.818 Encounter for other preprocedural examination; S83.212D Bucket-handle tear of medial meniscus, current injury, left knee, subsequent encounter
CPT/HCPCS: 99214

== ENCOUNTER 2023-12-23 06:12 | Day surgery (SDC) | payer OTHER, SELFPAY ==
[2023-12-21 07:33] VITALS: BMI 34.7
--- NOTE | 2023-12-21 12:13 | P.CONAN_ITS ---
Documented by User: Isabelle Oneill NP 12/21/23 12:15 HPI - Anesthesia Eval Consult details Narrative: 53yo M for Left Knee Arthroscopy, partial medial meniscectomy, possible lateral meniscectomy Optimized by PCP and cardiology [facility] Active Problems Active Problems: All Active Problems (Updated 12/15/23 @ 15:43 by Leonid Geller PA-C) Pre-op examination (Acute) Tear of medial meniscus of left knee (Acute) Allergic rhinitis (Acute) Diabetes (Acute) COPD (chronic obstructive pulmonary disease) (Acute) Bipolar disorder (Acute) Preoperative cardiovascular examination (Acute) Afgiw-Egnpqvvoe-Bipml (WPW) pattern (Acute) Heart murmur (Acute) Post-cholecystectomy syndrome (Acute) Left knee pain (Acute) Anxiety (Acute) Depression (Acute) Benign prostate hyperplasia (Acute) Insomnia (Acute) Asthma (Acute) Arthritis (Acute) Hyperlipidemia (Acute) GERD (gastroesophageal reflux disease) (Acute) Hypertension (Acute) Hypothyroidism (Acute) Past Medical History Medical History Pre-op examination Precordial chest pain Heart palpitations Nausea and vomiting RUQ abdominal tenderness Adult general medical exam Screening for colon cancer Bilateral hip pain Back pain Screening for prostate cancer Allergic rhinitis Bipolar disorder COPD (chronic obstructive pulmonary disease) Diabetes Family History Family History Father Prostate cancer Other Mental health disorder Substance use disorder Surgical History Surgical History History of cholecystectomy History of esophagogastroduodenoscopy (EGD) History of colonoscopy History of bladder surgery Social History Social History Housing: House Alcohol intake: former Patient Tobacco Use Status: Former Tobacco user Years Smoked: pt quit 15 years ago e-Cigarette/Vaping Use: Never Used Second Hand Smoke Exposure: No Use of substances other than those prescribed or required for medical reasons: No Are you DNR?: No Advance Directives: No Advance Directives Information Provided: Yes Advance Directives on File: No service: No Current occupational status: unemployed 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 Cognitive needs: No Hearing needs: No Vision needs: Yes (glasses) Meds Allergies Allergy/AdvReac Type Severity Reaction Status Date / Time No Known Allergies Allergy Verified 12/15/23 15:36 Active Medications: Current Medications Cefazolin Sodium/Dextrose (Ancef) 2 gm in 50 mls @ 100 mls/hr IV PREOP ONE Stop: 12/23/23 05:54 Exam Height,Weight and Vital Signs: Height 6 ft Weight 116.12 kg Pertinent Lab Results Pertinent Lab Results: Laboratory Tests 11/30/23 10:49 WBC 4.8 Hgb 14.3 Hct 40.9 L Plt Count 216 Sodium 140 Potassium 3.5 Chloride 104 Carbon Dioxide 30 H BUN 12 Creatinine 0.88 Laboratory Tests 08/23/23 09:38 Hemoglobin A1c % 5.7 Narrative Narrative: EKG Details: EKG today. Normal Sinus Rhythm. Vuhpm-Vipkfyedk-Zacvf. Rate 76 bpm. QRS 134ms. QTc 472ms. [id number]-[id number], Complete Results Reviewed Results Reviewed: 7 Day Holter: 1. Patient was monitored for total period of 7 days 2. Baseline was normal sinus with average heart of 70 beats per minute. 3. Frequent PACs noted with total burden of 2.4% with 11 total SVT runs, fastest at 178 beats per minute and longest at 11 beats 4. No significant pauses noted 5. Patient reported 5 events but only 3 symptoms in the diary with elevated heart rate or palpitations correlating with normal sinus rhythm Echocardiogram: Conclusions: - 1. Technically difficult study 2. Hyperdynamic LV ejection fraction greater than 70% with impaired relaxation filling pattern with mildly increased gradient across the LVOT suggestive dynamic obstruction of unclear etiology 3. Normal cardiac valvular Dopplers Stress test Nuclear images: 1. Myocardial perfusion imaging study shows no clear evidence of any ischemia or infarction. Probably normal myocardial perfusion. 2. Gated LVEF is 67% during stress and 74% during rest. 3. Transient ischemic dilatation not present. Assessment and Plan Assessment Anesthesia Assessment: Chart Reviewed Documented by User: Arielle Kulkarni MD 12/23/23 08:21 [facility] Past Medical History Medical History Pre-op examination Precordial chest pain Heart palpitations Nausea and vomiting RUQ abdominal tenderness Adult general medical exam Screening for colon cancer Bilateral hip pain Back pain Screening for prostate cancer Allergic rhinitis Bipolar disorder COPD (chronic obstructive pulmonary disease) Diabetes Family History Family History Father Prostate cancer Other Mental health disorder Substance use disorder Family history of problems with anesthesia: No Surgical History Surgical History History of cholecystectomy History of esophagogastroduodenoscopy (EGD) History of colonoscopy History of bladder surgery History of Problems with Anesthesia: No Social History Social History Housing: House Alcohol intake: former Patient Tobacco Use Status: Former Tobacco user Years Smoked: pt quit 15 years ago e-Cigarette/Vaping Use: Never Used Second Hand Smoke Exposure: No Use of substances other than those prescribed or required for medical reasons: No Are you DNR?: No Advance Directives: No Advance Directives Information Provided: Yes Advance Directives on File: No service: No Current occupational status: unemployed Current occupation: rt [employer] Cognitive needs: No Hearing needs: No Vision needs: Yes (glasses) Meds Allergies Allergy/AdvReac Type Severity Reaction Status Date / Time No Known Allergies Allergy Verified 12/15/23 15:36 Exam Airway Mallampati Class: II TM Dist: >3cm Neck ROM: Limited Heart: rrr Lungs: cta Assessment and Plan Assessment Anesthesia Assessment: Anesthesia Plan Discussed Final Anesthetic Review Family History of Problems with Anesthesia: No History of Problems with Anesthesia: No NPO: Yes ASA Class: III Final Preanesthetic Review: No Changes in Pt Med Stat, Meds/Allgs Chart Reviewed, Consent Obtained/Reviewed and Anes Risks/Benef Reviewed Patient Risk: Intermediate Procedure Risk: Low Anesthetic Plan Anesthetic Plan: GA Disposition: Standard PACU
[2023-12-23] VITALS (7 sets, daily range): BP systolic 114–141; BP diastolic 64–85; PULSE 66–93; RESP 16–18; TEMP 36.5–36.9; O2SAT 95–100; BMI 36.3
[2023-12-23 06:45] LABS: Glucose, Whole Blood 107 mg/dL (60-115)
[2023-12-23] MEDS: Lactated Ringers 1,000 ML 100 ML IVCONT (06:59)
--- NOTE | 2023-12-23 08:33 | PM.OP ---
Brief Operative Note Date of Service: 12/23/23 Pre-op diagnosis: Left knee medial meniscus tear, left knee lateral meniscus tear, left knee degenerative joint disease Post-op diagnosis: same Procedure: Left knee diagnostic arthroscopy with left knee arthroscopic partial medial and lateral meniscectomies, left knee arthroscopic chondroplasty of the undersurface of the patella as well as the medial femoral condyle Implants: None Surgeon: Bg Shahid MD Anesthesia: GLMA Was an Bander And Cellophaner Machine Helper used for this Procedure?: No Estimated blood loss (mL): 10 Pathology: none sent Condition: stable Disposition: PACU
--- NOTE | 2023-12-23 08:34 | P.OP_ITS ---
Operative Note Operative Note Date of Service: 12/23/23 Narrative: After the patient was identified as Berlin Grayson and his left knee was initialed by myself they were brought to the operating room where general anesthesia was induced by the anesthesiologist in routine fashion. The patient was given 3 g of IV Ancef preoperatively for infection prophylaxis. The patient's left lower extremity was prepped and draped in sterile fashion. A formal time-out was completed. Marcaine was injected into the planned incision sites as well as the patient's left knee joint. A #11 scalpel blade was used to make an anterolateral portal 1 cm proximal to the joint line and 1 cm lateral to the p atellar tendon. Blunt trocar technique was used to enter the suprapatellar pouch with the knee in extension. Diagnostic arthroscopy showed multiple bands of thickened plica which would be excised at the end of the procedure. There were no loose bodies or abnormalities found in either the medial or lateral gutters. The articular surface of the patella showed diffuse grades 2 and 3 degenerative changes. The trochlear groove articular surface showed diffuse grades 1 and 2 degenerative changes. The patient's knee was flexed to 45 degrees and a valgus force was placed upon it. The medial compartment was entered. An anteromedial portal was made 1 cm proximal to the joint line and 1 cm medial to the patellar tendon. Probing of the medial meniscus showed a radial tear of the posterior horn. A partial medial meniscectomy was performed using the arthroscopic shaver. Following the partial meniscectomy the remainder of the meniscus tissue was stable. There were diffuse grades 1 and 2 d egenerative changes of the medial femoral condyle as well as grade 1 degenerative changes of the medial tibial plateau. The articular surface of the medial femoral condyle was then made smooth using the arthroscopic shaver. The articular surface of the medial tibial plateau was already smooth so no chondroplasty was indicated. The patient's knee was placed into a neutral position. There was no injury to the anterior cruciate ligament. The patient's knee was then placed in the figure of 4 position and the lateral compartment was entered. There was a radial tear of the posterior horn of the lateral meniscus. A partial lateral meniscectomy was performed using the arthroscopic shaver. Following the partial meniscectomy the remainder of the meniscus tissue was stable. There were minimal degenerative changes of the lateral femoral condyle and lateral tibial plateau. The patient's knee was once again brought into extension and the suprapatellar pouch was entered. The arthroscopic shaver and the ArthroCare Wand were used to excise the thickened bands of plica. The undersurface of the patella was then made smooth using the arthroscopic shaver. The articular surface of the trochlear groove was already smooth so no chondroplasty was indicated. The knee joint was irrigated and then drained. All arthroscopic instruments were removed. The 2 portals were closed with 3-0 nylon interrupted suture. The knee joint was injected with Marcaine. Dry sterile dressing and Vineet bandages were placed over the patient's knee. The patient was awoken and extubated in the operating room. The patient was transferred to the recovery room in stable condition.
[2023-12-23] MEDS: cefTRIAXone sodium 1 GM in 0.9 % Sodium Chloride 50 ML IV (08:48)
== END 2023-12-23 10:06 | disposition home or self-care (01) ==
PROVIDERS: PCP Internal Medicine; Visit Provider Orthopaedic Surgery
PROC: (CPT 29870; principal; 2023-12-23 07:30)
DX: S83.242A Other tear of medial meniscus, current injury, left knee, initial encounter (principal); S83.282A Other tear of lateral meniscus, current injury, left knee, initial encounter; X50.1XXA Overexertion from prolonged static or awkward postures, initial encounter; Y93.9 Activity, unspecified; Y92.9 Unspecified place or not applicable; Y99.9 Unspecified external cause status; M67.52 Plica syndrome, left knee; M17.12 Unilateral primary osteoarthritis, left knee; M23.52 Chronic instability of knee, left knee; J44.9 Chronic obstructive pulmonary disease, unspecified; E11.9 Type 2 diabetes mellitus without complications; Z79.84 Long term (current) use of oral hypoglycemic drugs; Z79.899 Other long term (current) drug therapy; Z98.890 Other specified postprocedural states; Z87.891 Personal history of nicotine dependence; Z56.0 Unemployment, unspecified
CPT/HCPCS: 29880; 82947; J0171; J0690; J0696; J1100; J1885; J2250; J2371; J2405; J2704; J2795; J3010

== ENCOUNTER → 2023-12-23 06:12 | Outpatient (BNV) | payer OTHER, SELFPAY | PROVIDERS: PCP Internal Medicine; Visit Provider Orthopaedic Surgery | DX: S83.242A Other tear of medial meniscus, current injury, left knee, initial encounter (principal); S83.282A Other tear of lateral meniscus, current injury, left knee, initial encounter | CPT/HCPCS: 29880 ==

== ENCOUNTER 2024-01-03 14:04 | Outpatient (AMB) | payer OTHER, SELFPAY ==
--- NOTE | 2024-01-03 14:20 | A.OFFVIS_ITS ---
Intake Vital Signs 01/03/24 14:24 Height 6 ft Weight 260 lb 2.327 oz BMI 35.3 BP 136/88 Blood Pressure Location Rt brachial Position Sitting Pulse 69 Intake Visit Reasons: f/up Intake Note: follow up Assistant Professor Of Economics Required: Yes Assistant Professor Of Economics Language: Social Media Content Manager Name: Karan [id number] Accompanied by: Son Allergies No Known Allergies Allergy (Verified 01/03/24 14:24) Medication List - Last Reconciled 01/03/24 by Bobby Marshall MD acetaminophen (Tylenol) 650 mg (2 x 325 mg) PO Q6H PRN albuterol sulfate 90 mcg/actuation (Ventolin HFA) 2 puffs inhalation Q4-6H PRN amlodipine (Norvasc) 5 mg PO DAILY aspirin 81 mg PO DAILY cholestyramine (with sugar) 4 gram 4 grams PO BID cyclobenzaprine 5 mg PO BEDTIME PRN divalproex (Depakote) 500 mg PO BID fluticasone furoate 100 mcg/actuation (Arnuity Ellipta) 1 inh inhalation DAILY levothyroxine (Synthroid) 50 mcg PO DAILY zbysbm-cabefruc-umxwyxu 24,000-76,000 -120,000 unit (Creon) 2 caps PO BID 30 days losartan-hydrochlorothiazide 100-25 mg (Hyzaar) 1 tab PO DAILY melatonin 5 mg PO BEDTIME PRN meloxicam 7.5 mg PO DAILY metformin 500 mg PO DAILY metoprolol tartrate 50 mg PO BID 90 days montelukast (Singulair) 10 mg PO DAILY omeprazole 20 mg PO DAILY oxybutynin chloride 5 mg PO DAILY oxycodone-acetaminophen 5-325 mg (Percocet) 1 tab PO Q6H PRN 1 week peg 3350-electrolytes 236-22.74-6.74 -5.86 gram (Golytely) 240 mL PO Q10M 1 day quetiapine 50 mg PO DAILY sertraline (Zoloft) 50 mg PO DAILY simvastatin 40 mg PO DAILY HPI HPI Comments History of Present Illness Details [place] returns for follow-up. He was seen in consultation regarding various symptoms including chest pain, palpitations in the past. Discussed with him using patent prosecution paralegal. Overall, he generally feels okay. Still gets some random symptoms but nothing predictable. Many comorbidities including obesity, diabetes, hypertension, dyslipidemia. 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 PFSH Medical History Pre-op examination Precordial chest pain Heart palpitations Nausea and vomiting RUQ abdominal tenderness Adult general medical exam Screening for colon cancer Bilateral hip pain Back pain Screening for prostate cancer Allergic rhinitis Bipolar disorder COPD (chronic obstructive pulmonary disease) Diabetes Surgical History (Updated 01/03/24 @ 14:25 by Radha Ray) H/O left knee surgery History of cholecystectomy History of esophagogastroduodenoscopy (EGD) History of colonoscopy History of bladder surgery Family History Father Prostate cancer Other Mental health disorder Substance use disorder Social History Housing: House Alcohol intake: former Patient Tobacco Use Status: Former Tobacco user Years Smoked: pt quit 15 years ago e-Cigarette/Vaping Use: Never Used Second Hand Smoke Exposure: No service: No Current occupational status: unemployed 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 Cognitive needs: No Hearing needs: No Vision needs: Yes (glasses) Review of Systems Const Denies weakness ENT Denies dizziness Card Denies chest pain, Denies chest pain with activity, Denies syncope, Denies rapid heart rate, Denies pedal edema, Denies edema, Denies leg edema, Denies lightheadedness, Denies palpitations, Denies dyspnea, Denies dyspnea on exertion and Denies orthopnea Resp Denies cough, Denies dyspnea and Denies dyspnea on exertion GI Denies hematochezia and Denies change in stool character Musc Denies abnormal gait, Denies muscle cramps, Denies muscle weakness, Denies numbness, Denies radiating pain into limb and Denies tingling Neuro Denies abnormal gait, Denies dizziness, Denies syncope, Denies numbness, Denies tingling and Denies weakness Endo Denies palpitations Physical Exam Vital Signs: Last Vital Signs Pulse 69 01/03/24 14:24 BP 136/88 01/03/24 14:24 BMI result Body Mass Index 35.3 Const General: comfortable and no acute distress Orientation/consciousness: patient oriented x3 HEENT Other: Unremarkable Head: Yes normal to inspection Neck Neck: Yes normal visual inspection Chest Chest palpation & inspection: normal inspection of the chest Resp Auscultation: clear to auscultation bilaterally Cardio Palpation: normal PMI Heart sounds: S1 normal heart sound present, S2 normal heart sound present, no gallops, no murmurs and no rubs GI Palpation (GI): Soft to palpation Back/Spine/Pelvis Other: unremarkable Skin General skin exam: no rashes or lesions noted Neuro General: patient oriented x3 Extrem General: Yes normal to inspection Psych Mental Status: mental status grossly normal Assessment & Plan Assessment & Plan (1) Lssye-Bxilueicm-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 Echocardiogram with hyperdynamic LVEF but otherwise unremarkable. In the stress test, he was able to reach 4.6 Mets on the Damon protocol and reached target heart rate. Had chest pain. Difficult to interpret EKG because of baseline abnormality. There was no suggestion of conduction in accessary pathway. In the perfusion part, unremarkable. In the Holter, underlying rhythm is sinus with frequent supraventricular ectopy. Based on the above, continue beta-blockers as currently on. We will continue to monitor. Discussed with patient using dental professional. Follow-up in 6 months. Total time spent including review of data, counseling, documentation, coordination of care-31 minutes. Coding Level of Care Code Est Pt Level 4 (44229) Diagnoses Cneob-Ooqvnqsdn-Xeibe (WPW) pattern I45.6 Diabetes E11.9 Hypertension I10
[2024-01-03 14:24] VITALS: BP 136/88; PULSE 69; BMI 35.3
== END 2024-01-03 14:40 | disposition home or self-care (01) ==
PROVIDERS: PCP Internal Medicine; Visit Provider Internal Medicine
DX: I45.6 Pre-excitation syndrome (principal); E11.9 Type 2 diabetes mellitus without complications; I10 Essential (primary) hypertension
CPT/HCPCS: 99214

== ENCOUNTER → 2024-01-03 14:04 | Outpatient (BNVA) | payer OTHER, SELFPAY | PROVIDERS: PCP Internal Medicine; Visit Provider Internal Medicine | DX: I45.6 Pre-excitation syndrome (principal); I10 Essential (primary) hypertension; E11.9 Type 2 diabetes mellitus without complications | CPT/HCPCS: 99212 ==

== ENCOUNTER 2024-01-05 14:14 | Outpatient (AMB) | payer OTHER, SELFPAY ==
--- NOTE | 2024-01-05 06:41 | A.OFFVIS_ITS ---
Intake Intake Visit Reasons: PO-Lt Knee 12/23/23 Intake Note: Berlin lyon 53 year old male presents today for a post operative left knee on 12/23/23 Patient reports his pain has been tolerable and getting better every day. Allergies No Known Allergies Allergy (Verified 01/05/24 14:39) Medication List - Last Reconciled 01/05/24 by Benson Joe PA-C acetaminophen (Tylenol) 650 mg (2 x 325 mg) PO Q6H PRN albuterol sulfate 90 mcg/actuation (Ventolin HFA) 2 puffs inhalation Q4-6H PRN amlodipine (Norvasc) 5 mg PO DAILY aspirin 81 mg PO DAILY cholestyramine (with sugar) 4 gram 4 grams PO BID cyclobenzaprine 5 mg PO BEDTIME PRN divalproex (Depakote) 500 mg PO BID fluticasone furoate 100 mcg/actuation (Arnuity Ellipta) 1 inh inhalation DAILY levothyroxine (Synthroid) 50 mcg PO DAILY crlhuk-gkwsnmaf-oohodnl 24,000-76,000 -120,000 unit (Creon) 2 caps PO BID 30 days losartan-hydrochlorothiazide 100-25 mg (Hyzaar) 1 tab PO DAILY melatonin 5 mg PO BEDTIME PRN meloxicam 7.5 mg PO DAILY metformin 500 mg PO DAILY metoprolol tartrate 50 mg PO BID 90 days montelukast (Singulair) 10 mg PO DAILY omeprazole 20 mg PO DAILY oxybutynin chloride 5 mg PO DAILY oxycodone-acetaminophen 5-325 mg (Percocet) 1 tab PO Q6H PRN 1 week peg 3350-electrolytes 236-22.74-6.74 -5.86 gram (Golytely) 240 mL PO Q10M 1 day quetiapine 50 mg PO DAILY sertraline (Zoloft) 50 mg PO DAILY simvastatin 40 mg PO DAILY HPI PO-Lt Knee 12/23/23 HPI Details 53-year-old male who returns to the [facility] today for post-op left knee , 12/23/[address] Shahid. He states he has tolerable pain which has been improving day by day. He is doing well overall and has no concerns today. [facility] Medical History Pre-op examination Precordial chest pain Heart palpitations Nausea and vomiting RUQ abdominal tenderness Adult general medical exam Screening for colon cancer Bilateral hip pain Back pain Screening for prostate cancer Allergic rhinitis Bipolar disorder COPD (chronic obstructive pulmonary disease) Diabetes Surgical History H/O left knee surgery History of cholecystectomy History of esophagogastroduodenoscopy (EGD) History of colonoscopy History of bladder surgery Family History Father Prostate cancer Other Mental health disorder Substance use disorder Social History Housing: House Alcohol intake: former Patient Tobacco Use Status: Former Tobacco user Years Smoked: pt quit 15 years ago e-Cigarette/Vaping Use: Never Used Second Hand Smoke Exposure: No service: No Current occupational status: unemployed 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 He does have swelling in his knee which extends into his leg. ROM is 5-85 degrees. Calf supple, nontender. NVI. Results Reviewed Results Reviewed: Brief Operative Note Date of Service: 12/23/23 Pre-op diagnosis: Left knee medial meniscus tear, left knee lateral meniscus tear, left knee degenerative joint disease Post-op diagnosis: same Procedure: Left knee diagnostic arthroscopy with left knee arthroscopic partial medial and lateral meniscectomies, left knee arthroscopic chondroplasty of the undersurface of the patella as well as the medial femoral condyle Implants: None Surgeon: Bg Shahid MD Assessment & Plan Assessment & Plan (1) Tear of medial meniscus of left knee: Code(s): S83.242A - Other tear of medial meniscus, current injury, left knee, initial encounter Qualifiers: Encounter type: subsequent encounter Meniscus tear of knee type: bucket-handle Tear current or old: current Qualified Code(s): S83.212D - Bucket-handle tear of medial meniscus, current injury, left knee, subsequent encounter Plan Sutures removed today, steri strips applied. He was given an order for physical therapy. I educated him on strict elevation above the heart level and perform ankle pumps to help reduce the swelling. If he notices any tightness or redness in the calf, he will contact the office, otherwise he will see us back in [address] Shahid, sooner if needed. Orders: Orders PT Evaluation and Treatment Today S83.212D - Bucket-handle tear of medial meniscus, current injury, left knee, subsequent encounter Patient Instructions: Scribed for Benson Joe PA-C, by Pierre Clancy medical review coordinator, on 01/05/2024 at 2:15 PM EST. I, Benson Joe PA-C, have personally reviewed and agree with the information entered by the scribe. Coding Level of Care Code Global (23869) Diagnoses Bucket-handle tear of medial meniscus of left knee as current injury, subsequent encounter S83.212D Encounter type: subsequent encounter Meniscus tear of knee type: bucket-handle Tear current or old: current
== END 2024-01-05 15:09 | disposition home or self-care (01) ==
PROVIDERS: PCP Internal Medicine; Visit Provider Physician Assistant
DX: S83.212D Bucket-handle tear of medial meniscus, current injury, left knee, subsequent encounter (principal)
CPT/HCPCS: 99024

== ENCOUNTER → 2024-01-05 14:14 | Outpatient (BNVA) | payer OTHER, SELFPAY | PROVIDERS: PCP Internal Medicine; Visit Provider Physician Assistant | DX: S83.212D Bucket-handle tear of medial meniscus, current injury, left knee, subsequent encounter (principal) | CPT/HCPCS: 99212 ==

== ENCOUNTER 2024-02-02 14:12 | Outpatient (AMB) | payer OTHER, SELFPAY ==
[2024-02-02 14:15] VITALS: BMI 35.3
--- NOTE | 2024-02-02 14:15 | MHC.OFFVIS ---
Vital Signs 02/02/24 14:15 Height 6 ft Weight 260 lb BMI 35.3 Intake Visit Reasons: PO-Lt Knee 12/23/23 Intake Note: [place] is a 53 year old male who presents for his post operative appointment s/p left knee on 12/23/23 . Patient reports better but he still has pain on the Left side of the knee. He denies any fevers or chills. He takes Tylenol which gives him fairly good relief. He is interested in going to formal physical therapy. Parts Room Clerk Name: [id number] Allergies No Known Allergies Allergy (Verified 02/02/24 14:22) Medication List - Last Reconciled 02/02/24 by Bg Shahid MD acetaminophen (Tylenol) 650 mg (2 x 325 mg) PO Q6H PRN albuterol sulfate 90 mcg/actuation (Ventolin HFA) 2 puffs inhalation Q4-6H PRN amlodipine (Norvasc) 5 mg PO DAILY aspirin 81 mg PO DAILY cholestyramine (with sugar) 4 gram 4 grams PO BID cyclobenzaprine 5 mg PO BEDTIME PRN divalproex (Depakote) 500 mg PO BID fluticasone furoate 100 mcg/actuation (Arnuity Ellipta) 1 inh inhalation DAILY levothyroxine (Synthroid) 50 mcg PO DAILY gkvgks-mfeyeuqp-inmzcfs 24,000-76,000 -120,000 unit (Creon) 2 caps PO BID 30 days losartan-hydrochlorothiazide 100-25 mg (Hyzaar) 1 tab PO DAILY melatonin 5 mg PO BEDTIME PRN meloxicam 7.5 mg PO DAILY metformin 500 mg PO DAILY metoprolol tartrate 50 mg PO BID 90 days montelukast (Singulair) 10 mg PO DAILY omeprazole 20 mg PO DAILY oxybutynin chloride 5 mg PO DAILY oxycodone-acetaminophen 5-325 mg (Percocet) 1 tab PO Q6H PRN 1 week peg 3350-electrolytes 236-22.74-6.74 -5.86 gram (Golytely) 240 mL PO Q10M 1 day quetiapine 50 mg PO DAILY sertraline (Zoloft) 50 mg PO DAILY simvastatin 40 mg PO DAILY REPLACED BY [facility] Medical History Pre-op examination Precordial chest pain Heart palpitations Nausea and vomiting RUQ abdominal tenderness Adult general medical exam Screening for colon cancer Bilateral hip pain Back pain Screening for prostate cancer Allergic rhinitis Bipolar disorder COPD (chronic obstructive pulmonary disease) Diabetes Surgical History H/O left knee surgery History of cholecystectomy History of esophagogastroduodenoscopy (EGD) History of colonoscopy History of bladder surgery Family History Father Prostate cancer Other Mental health disorder Substance use disorder Social History Housing: House Alcohol intake: former Patient Tobacco Use Status: Former Tobacco user Years Smoked: pt quit 15 years ago e-Cigarette/Vaping Use: Never Used Second Hand Smoke Exposure: No service: No Current occupational status: unemployed 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 Grayson continues do fairly well after undergoing left knee arthroscopic surgery on 12/23/2023. I did give him a prescription to go to formal physical therapy. Activity modifications were discussed at length with the patient. Will contact me prior to his follow-up appointment in 2 months should any questions or concerns arise. Feel free to call me at any time should questions regarding his orthopedic management arise. Orders: Orders PT Evaluation and Treatment Today M25.562 - Pain in left knee Coding Level of Care Code Global (16826) Diagnoses Left knee pain M25.562
== END 2024-02-02 14:36 | disposition home or self-care (01) ==
PROVIDERS: PCP Internal Medicine; Visit Provider Orthopaedic Surgery
DX: M25.562 Pain in left knee (principal)
CPT/HCPCS: 99024

== ENCOUNTER → 2024-02-02 14:12 | Outpatient (BNVA) | payer OTHER, SELFPAY | PROVIDERS: PCP Internal Medicine; Visit Provider Orthopaedic Surgery | DX: M25.562 Pain in left knee (principal) | CPT/HCPCS: 99212 ==

== ENCOUNTER 2024-02-28 11:07 | Outpatient (AMB) | payer OTHER, SELFPAY ==
[2024-02-28 11:08] VITALS: BP 150/103; PULSE 96; BMI 34.7
--- NOTE | 2024-02-28 11:08 | A.OFFVIS_ITS ---
Vital Signs 02/28/24 11:08 Height 6 ft Weight 255 lb 11.779 oz BMI 34.7 BP 150/103 H Blood Pressure Location Lt brachial Position Sitting Pulse 96 Intake Visit Reasons: 6 week follow up Intake Note: Patient in office today for 6 weeks follow up post cholecystectomy syndrome. CC: Patient reports doing well and denies having any new GI symptoms today. 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 I am unsure if this is indicating poor digestion, or a s/e of the carafate. Will try adding creon. He has completed his cardiology work up and is cleared for EGD/colonoscopy. I send a note to the schedulers and he should expect a call to schedule. ROV 6 weeks to kaitlyn iyer. Medications: New kirbeb-yiriazqi-zqvfhwd 24,000-76,000 -120,000 unit (Creon) administer with meals and/or snacks 2 caps PO BID 30 days 120 caps 6RF K58.9 - Irritable bowel syndrome without diarrhea Refilled omeprazole 20 mg PO DAILY 90 caps 0RF K21.9 - Gastro-esophageal reflux disease without esophagitis EGD/COLONOSCOPY Scheduled for 04/03/2024 BIOPSY TODAY'S VISIT Alida Lua HE continues with cholestyramine (NOT CARAFATE) bid with good control of the diarrhea and he feels that the creon has helped the gas and bloating. He does note that eating red meat seems to trigger diarrhea. He also continues on omeprazole with good control of his GERD. He is aware of the upcoming EGD and the follow up with me in April. We will keep that date. [facility] Medical History Pre-op examination Precordial chest pain Heart palpitations Nausea and vomiting RUQ abdominal tenderness Adult general medical exam Screening for colon cancer Bilateral hip pain Back pain Screening for prostate cancer Allergic rhinitis Bipolar disorder COPD (chronic obstructive pulmonary disease) Diabetes Surgical History H/O left knee surgery History of cholecystectomy History of esophagogastroduodenoscopy (EGD) History of colonoscopy History of bladder surgery Family History Father Prostate cancer Other Mental health disorder Substance use disorder Social History Housing: House Alcohol intake: former Patient Tobacco Use Status: Former Tobacco user Years Smoked: pt quit 15 years ago e-Cigarette/Vaping Use: Never Used Second Hand Smoke Exposure: No service: No Current occupational status: unemployed 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 Cognitive needs: No Hearing needs: No Vision needs: Yes (glasses) Review of Systems Const Denies fatigue, Denies fever(s), Denies night sweats, Denies poor appetite and Denies weight loss Eyes Details: glasses Reports requires corrective lenses ENT Reports Normal hearing present, Denies dental pain, Denies dysphagia, Denies hearing loss, Denies mouth pain, Denies odynophagia, Denies throat swelling, Denies tongue swelling and Reports other (Dentition adequate) Card Reports no additional complaints Resp Reports no additional complaints GI Details: Denies abdominal pain, Denies melena, Denies bloating, Denies hematochezia, Denies constipation, Denies GI cramping, Denies dysphagia, Denies excessive flatus, Denies early satiety, Reports heartburn, Reports diarrhea, Denies nausea, Denies odynophagia, Denies vomiting and Denies hematemesis Skin/Breast Denies pruritus, Denies lesions, Denies rash and Denies jaundice Neuro Reports Normal hearing present and Denies Abnormal speech present Endo Denies fatigue Aller/Immun Denies throat swelling and Denies tongue swelling Physical Exam Vital Signs: Last Vital Signs Pulse 96 02/28/24 11:08 BP 150/103 H 02/28/24 11:08 BMI result Body Mass Index 34.7 Const General: cooperative, no acute distress, well developed and well groomed Nutritional Appearance: well nourished and obese Orientation/consciousness: oriented to person, oriented to place and oriented to time Limitations: language barrier HEENT Head: Yes normocephalic and Yes atraumatic Eyes General: appearance normal, both eyes and all related structures Pupils: Equal, round and reactive pupils present Neck Neck: Yes normal visual inspection and Yes no lymphadenopathy Thyroid: Thyroid normal Resp Effort & Inspection: normal respiratory effort and able to speak in complete sentences Auscultation: clear to auscultation bilaterally Cardio Rate: regular rate Rhythm: regular rhythm Heart sounds: Normal, physiologic split S2 sound present Peripheral pulses: radial pulses present and posterior tibial pulses present GI Inspection: No distended, No Abdominal panniculus present and Yes obesity Palpation (GI): Soft to palpation, nontender, no guarding, not rigid and No hepatosplenomegaly present Percussion: Yes normal to percussion Auscultation: normal bowel sounds Rectal Exam - Male: Yes deferred Skin General skin exam: no rashes or lesions noted, turgor normal, skin not dry, no jaundice, No spider nevi and no striae Rashes: no rashes Nails: normal Neuro General: oriented to person, oriented to place and oriented to time Cranial nerves: Yes Equal, round and reactive pupils present and Yes Normal hearing present Speech: No Abnormal speech present Extrem General: Yes normal to inspection, No clubbing, No cyanosis and No edema Psych Appearance: grossly normal and well kempt Mental Status: mental status grossly normal Speech and movement: Normal speech and movement present Affect: normal affect Attitude: cooperative Thought process: Normal thought process present and not confabulating Thought content: Normal thought content present Insight: Limited insight present (Psych) Judgement: Limited judgement present (Psych) Assessment & Plan Assessment & Plan (1) 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 He does note that eating red meat seems to trigger diarrhea. He also continues on omeprazole with good control of his GERD. He is aware of the upcoming EGD and the follow up with me in April. We will keep that date. Coding Level of Care Code Est Pt Level 3 (33527) Diagnoses Post-cholecystectomy syndrome K91.5 GERD (gastroesophageal reflux disease) K21.9
== END 2024-02-28 11:58 | disposition home or self-care (01) ==
PROVIDERS: PCP Nurse Practitioner Family; Visit Provider Nurse Practitioner
DX: K91.5 Postcholecystectomy syndrome (principal); K21.9 Gastro-esophageal reflux disease without esophagitis
CPT/HCPCS: 99213

== ENCOUNTER → 2024-02-28 11:07 | Outpatient (BNVA) | payer OTHER, SELFPAY | PROVIDERS: PCP Nurse Practitioner Family; Visit Provider Nurse Practitioner | DX: K91.5 Postcholecystectomy syndrome (principal); K21.9 Gastro-esophageal reflux disease without esophagitis | CPT/HCPCS: 99212 ==

== ENCOUNTER 2024-03-21 14:11 | Outpatient (AMB) | payer OTHER, SELFPAY ==
--- NOTE | 2024-03-21 14:26 | MHC.PC.OV ---
Vital Signs 03/21/24 14:29 Height 6 ft Weight 257 lb BMI 34.9 BP 140/72 H Blood Pressure Location Lt brachial Position Sitting Pulse 69 Pulse Source Pulse Oximeter Pulse Oximetry (%) 94 Oxygen Delivery Method Room Air Intake Visit Reasons: Dental Clearance Intake Note: Patient is here for a Pre-op for Dental Surgery scheduled with [facility] on unknown. Furnace Room Supervisor Required: Yes Furnace Room Supervisor Language: Senior Operations Manager Name: Timothy [phone]) Information Interpreted: non-clinical & clinical Agency Service Representative: Not Required per policy Accompanied by: Self / Same As Patient Allergies No Known Allergies Allergy (Verified 03/21/24 16:00) Medication List - Last Reconciled 03/21/24 by Dirk Woodall MD acetaminophen (Tylenol) 650 mg (2 x 325 mg) PO Q6H PRN albuterol sulfate 90 mcg/actuation (Ventolin HFA) 2 puffs inhalation Q4-6H PRN amlodipine (Norvasc) 5 mg PO DAILY aspirin 81 mg PO DAILY cholestyramine (with sugar) 4 gram 4 grams PO BID cyclobenzaprine 5 mg PO BEDTIME PRN divalproex (Depakote) 500 mg PO BID fluticasone furoate 100 mcg/actuation (Arnuity Ellipta) 1 inh inhalation DAILY levothyroxine (Synthroid) 50 mcg PO DAILY umtrdy-xesmklzt-armzmqg 24,000-76,000 -120,000 unit (Creon) 2 caps PO BID 30 days losartan-hydrochlorothiazide 100-25 mg (Hyzaar) 1 tab PO DAILY melatonin 5 mg PO BEDTIME PRN meloxicam 7.5 mg PO DAILY metformin 500 mg PO DAILY metoprolol tartrate 50 mg PO BID 90 days montelukast (Singulair) 10 mg PO DAILY omeprazole 20 mg PO DAILY oxybutynin chloride 5 mg PO DAILY peg 3350-electrolytes 236-22.74-6.74 -5.86 gram (Golytely) 240 mL PO Q10M 1 day quetiapine 50 mg PO DAILY sertraline (Zoloft) 50 mg PO DAILY simvastatin 40 mg PO DAILY Tobacco use date assessed: 03/21/24 Dental Screening Dental Screen Date: 12/08/23 HPI Dental Clearance HPI Details 54-year-old male presents to the office to discuss his chronic medical conditions. I will be assuming his care as his primary provider has left the practice. Patient speaks [place] only and an iPad was used. Patient is having a set of dental procedures done and the dentist has requested clearance. Past medical history includes diabetes, pre-excitation syndrome, bipolar illness, hypertension and hyper cholesterolemia. Recently he underwent meniscal tear repair in the left knee. He now has persistent swelling in the leg. Procedure was done in 12/21/2023. [facility] Medical History Pre-op examination Precordial chest pain Heart palpitations Nausea and vomiting RUQ abdominal tenderness Adult general medical exam Screening for colon cancer Bilateral hip pain Back pain Screening for prostate cancer Allergic rhinitis Bipolar disorder COPD (chronic obstructive pulmonary disease) Diabetes Surgical History H/O left knee surgery History of cholecystectomy History of esophagogastroduodenoscopy (EGD) History of colonoscopy History of bladder surgery Family History Father Prostate cancer Other Mental health disorder Substance use disorder Social History Housing: House Alcohol intake: former Patient Tobacco Use Status: Former Tobacco user Years Smoked: pt quit 15 years ago e-Cigarette/Vaping Use: Never Used Second Hand Smoke Exposure: No service: No Current occupational status: unemployed 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 Song Snyder, Ashley Ashford, Papa Gilliam and colleagues, with an educational maryjo from [employer]. Physical exam (Primary Care) Vital Signs: Last Vital Signs Pulse 69 03/21/24 14:29 BP 140/72 H 03/21/24 14:29 Pulse Ox 94 03/21/24 14:29 Oxygen Delivery Method Room Air 03/21/24 14:29 Care Plan Goal for BP management: Blood pressure is in range. BMI result Body Mass Index 34.9 BMI Assessment/Plan discussion: High (1 lb per week weight loss suggested.) BMI High, discussed plan: lifestyle, weight reduction and dietary Tobacco/Smoking Status: Tobacco use Status Tobacco use date assessed 03/21/24 03/21/24 14:33 Patient Tobacco Use Status Former Tobacco user 03/21/24 14:33 e-Cigarette/Vaping Use Never Used 03/21/24 14:33 Thrive Assessment: Date of Thrive Assessment Date Thrive assessed 11/02/23 03/21/24 14:33 Const General: cooperative and healthy appearing Nutritional Appearance: well nourished Orientation/consciousness: patient oriented x3 Limitations: no limitations HENMT Head: Yes normal to inspection Eyes General: appearance normal, both eyes and all related structures Neck Neck: Yes normal visual inspection Chest Chest palpation & inspection: normal palpation of entire chest wall Resp Effort & Inspection: normal respiratory effort Neuro General: patient oriented x3 Extrem Other: Left leg: Trace pitting edema over the ankle and marley. Assessment and Plan Assessment & Plan (1) Pre-op examination: Code(s): Z01.818 - Encounter for other preprocedural examination Plan: Proceed for surgery. Hold aspirin 1 week prior to the procedure. (2) Diabetes: Code(s): E11.9 - Type 2 diabetes mellitus without complications Plan: A1c has been ordered. Continue metformin at same dosage. (3) COPD (chronic obstructive pulmonary disease): Code(s): J44.9 - Chronic obstructive pulmonary disease, unspecified Plan: Condition is stable. Continue medications at same dosage. (4) Bipolar disorder: Code(s): F31.9 - Bipolar disorder, unspecified Plan: Condition is stable. Continue medications at same dosage. (5) Bcglc-Wawwewwue-Orvqf (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 Plan: Cardiology note reviewed. (6) Tear of medial meniscus of left knee: Code(s): S83.242A - Other tear of medial meniscus, current injury, left knee, initial encounter Qualifiers: Tear current or old: current Encounter type: subsequent encounter Meniscus tear of knee type: bucket-handle Qualified Code(s): S83.212D - Bucket-handle tear of medial meniscus, current injury, left knee, subsequent encounter Plan: The minimal swelling beneath the leg is due to the irritation from the surgery. In due course the edema should resolve. Medications: Refilled montelukast (Singulair) 10 mg PO DAILY 90 tabs 0RF J30.9 - Allergic rhinitis, unspecified, J45.909 - Unspecified asthma, uncomplicated aspirin 81 mg PO DAILY 90 tabs 1RF I10 - Essential (primary) hypertension levothyroxine (Synthroid) 50 mcg PO DAILY 90 tabs 0RF E03.9 - Hypothyroidism, unspecified metformin 500 mg PO DAILY 90 tabs 1RF E11.9 - Type 2 diabetes mellitus without complications melatonin 5 mg PO BEDTIME PRN 30 tabs 0RF sleep G47.00 - Insomnia, unspecified amlodipine (Norvasc) 5 mg PO DAILY 90 tabs 0RF I10 - Essential (primary) hypertension metoprolol tartrate STOP METOPROLOL SUCCINATE (ONCE A DAY) AND START THIS TWICE A DAY 50 mg PO BID 180 tabs 3RF 90 days simvastatin 40 mg PO DAILY 90 tabs 0RF E78.5 - Hyperlipidemia, unspecified albuterol sulfate 90 mcg/actuation (Ventolin HFA) 2 puffs inhalation Q4-6H PRN 8.5 grams 2RF shortness of breath or wheezing J44.9 - Chronic obstructive pulmonary disease, unspecified, J45.909 - Unspecified asthma, uncomplicated cyclobenzaprine 5 mg PO BEDTIME PRN 14 tabs 0RF muscle spasm M54.9 - Dorsalgia, unspecified Coding Level of Care Code Est Pt Level 4 (04533) Complex EM visit Add On G2211 Diagnoses Pre-op examination Z01.818 Diabetes E11.9 COPD (chronic obstructive pulmonary disease) J44.9 Bipolar disorder F31.9 Iujgs-Pfvtgubxq-Xsrni (WPW) pattern I45.6 Bucket-handle tear of medial meniscus of left knee as current injury, subsequent encounter S83.212D Tear current or old: current Encounter type: subsequent encounter Meniscus tear of knee type: bucket-handle
[2024-03-21 14:29] VITALS: BP 140/72; PULSE 69; O2SAT 94; BMI 34.9
== END 2024-03-21 15:47 | disposition home or self-care (01) ==
PROVIDERS: PCP Internal Medicine; Visit Provider Internal Medicine
DX: E11.9 Type 2 diabetes mellitus without complications (principal); J44.9 Chronic obstructive pulmonary disease, unspecified; F31.9 Bipolar disorder, unspecified; Z01.818 Encounter for other preprocedural examination; I45.6 Pre-excitation syndrome; S83.212D Bucket-handle tear of medial meniscus, current injury, left knee, subsequent encounter
CPT/HCPCS: 99214; G2211

== ENCOUNTER 2024-03-28 13:26 | Outpatient (AMB) | payer OTHER, SELFPAY ==
[2024-03-28 13:41] VITALS: BP 132/90; PULSE 68; O2SAT 98; BMI 35.4
--- NOTE | 2024-03-28 13:41 | MHC.PC.OV ---
Vital Signs 03/28/24 13:41 03/28/24 15:38 Height 6 ft Weight 260 lb 11.779 oz BMI 35.4 BP 132/90 H 132/88 Blood Pressure Location Lt brachial Lt brachial Position Sitting Sitting Pulse 68 Pulse Source Pulse Oximeter Pulse Oximetry (%) 98 Oxygen Delivery Method Room Air Intake Visit Reasons: see Latha Edi Consultant Required: No Accompanied by: Self / Same As Patient Allergies No Known Allergies Allergy (Verified 03/28/24 13:56) Medication List - Last Reconciled 03/28/24 by Jacquie Lagunas MD acetaminophen (Tylenol) 650 mg (2 x 325 mg) PO Q6H PRN albuterol sulfate 90 mcg/actuation (Ventolin HFA) 2 puffs inhalation Q4-6H PRN amlodipine (Norvasc) 5 mg PO DAILY aspirin 81 mg PO DAILY cholestyramine (with sugar) 4 gram 4 grams PO BID cyclobenzaprine 5 mg PO BEDTIME PRN divalproex (Depakote) 500 mg PO BID fluticasone furoate 100 mcg/actuation (Arnuity Ellipta) 1 inh inhalation DAILY levothyroxine (Synthroid) 50 mcg PO DAILY ddiqeq-fonhufma-vuzksuo 24,000-76,000 -120,000 unit (Creon) 2 caps PO BID 30 days losartan-hydrochlorothiazide 100-25 mg (Hyzaar) 1 tab PO DAILY melatonin 5 mg PO BEDTIME PRN meloxicam 7.5 mg PO DAILY metformin 500 mg PO DAILY metoprolol tartrate 50 mg PO BID 90 days montelukast (Singulair) 10 mg PO DAILY omeprazole 20 mg PO DAILY oxybutynin chloride 5 mg PO DAILY peg 3350-electrolytes 236-22.74-6.74 -5.86 gram (Golytely) 240 mL PO Q10M 1 day quetiapine 50 mg PO DAILY sertraline (Zoloft) 50 mg PO DAILY simvastatin 40 mg PO DAILY Tobacco use date assessed: 03/21/24 Dental Screening Dental Screen Date: 03/28/24 Did you have a dental visit in the last 12 months?: No Did you have a dental problem in the last 6 months where you did not have access to dental care?: No Was dental information given to patient?: Patient has dentist HPI HPI Comments History of Present Illness Details This is a 54-year-old male with diabetes mellitus type 2, hypertension, hyperlipidemia, COPD and bipolar disorder that comes today for follow-up on his conditions. A1c within goal. Blood pressure stable. LDL very close to goal. On Arnuity for his COPD and I will refer him to pulmonology. Has bipolar disorder follow by counseling but pending Psychiatry. Denies any chest pain or shortness on breath. Complains of bilateral leg swelling occasionally which most likely is a side effect of amlodipine. Also has hypothyroidism and last TSH was normal. I order TSH to be done today to recheck. [facility] Medical History (Updated 03/28/24 @ 15:45 by Jacquie Lagunas MD) Pre-op examination Precordial chest pain Heart palpitations Nausea and vomiting RUQ abdominal tenderness Adult general medical exam Screening for colon cancer Bilateral hip pain Back pain Screening for prostate cancer Allergic rhinitis Bipolar disorder COPD (chronic obstructive pulmonary disease) Diabetes Surgical History (Updated 03/28/24 @ 14:02 by Jacquie Lagunas MD) H/O left knee surgery History of cholecystectomy History of esophagogastroduodenoscopy (EGD) History of colonoscopy Family History Father Prostate cancer Other Mental health disorder Substance use disorder Social History Housing: House Alcohol intake: former Patient Tobacco Use Status: Former Tobacco user Tobacco use type: Cigarette Years Smoked: pt quit 15 years ago e-Cigarette/Vaping Use: Never Used Second Hand Smoke Exposure: No service: No Current occupational status: unemployed 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 How often do you have a drink containing alcohol?: Never Total Score: 0 ISABEL-7 AMB Questionnaire ISABEL-7 Date ISABEL - 7 assessed: 11/02/23 Feeling nervous, anxious, or on edge: 2 = More than half the days Not being able to stop or control worryin = Several days Worrying too much about different things: 1 = Several days Trouble relaxin = Several days Being so restless that it is hard to sit still: 2 = More than half the days Becoming easily annoyed or irritable: 3 = Nearly every day Feeling afraid as if something awful might happen: 1 = Several days Total ISABEL-7 score (0-4 normal; 5-9 mild; 10-14 moderate; 15-21 severe): 11 Source: Developed by Drs. Song Snyder, Ashley Ashford, Papa Gilliam and colleagues, with an educational maryjo from [employer]. Review of Systems Const All systems reviewed & are unremarkable except as noted in HPI and below Card Denies chest pain at rest, Denies chest pain with activity, Denies edema, Denies irregular heart rhythm, Denies claudication, Denies dyspnea, Denies dyspnea on exertion, Denies orthopnea, Denies paroxysmal nocturnal dyspnea and Denies slow heart rate Resp Denies cough, Denies dyspnea and Denies dyspnea on exertion Physical exam (Primary Care) Vital Signs: Last Vital Signs Pulse 68 03/28/24 13:41 BP 132/90 H 03/28/24 13:41 Pulse Ox 98 03/28/24 13:41 Oxygen Delivery Method Room Air 03/28/24 13:41 BMI result Body Mass Index 35.4 BMI Assessment/Plan discussion: High BMI High, discussed plan: lifestyle, weight reduction, dietary and physical activity Tobacco/Smoking Status: Tobacco use Status Tobacco use date assessed 03/21/24 03/28/24 13:42 Patient Tobacco Use Status Former Tobacco user 03/28/24 13:42 Tobacco use type Cigarette 03/28/24 13:45 e-Cigarette/Vaping Use Never Used 03/28/24 13:42 Thrive Assessment: Date of Thrive Assessment Date Thrive assessed 11/02/23 03/28/24 13:42 Resp Effort & Inspection: normal respiratory effort Auscultation: clear to auscultation bilaterally Cardio Jugular venous distension: no JVD Rate: regular rate Rhythm: regular rhythm Heart sounds: S1 normal heart sound present and S2 normal heart sound present Extrem General: Yes full ROM Assessment and Plan Assessment & Plan (1) Diabetes: Code(s): E11.9 - Type 2 diabetes mellitus without complications Qualifiers: Diabetes mellitus type: type 2 Diabetes mellitus technician terminal and repeater insulin use: without fpc use Diabetes mellitus complication status: without complication Qualified Code(s): E11.9 - Type 2 diabetes mellitus without complications Plan: Continue metformin. A1c goal is equal or less than 7%. (2) COPD (chronic obstructive pulmonary disease): Code(s): J44.9 - Chronic obstructive pulmonary disease, unspecified Qualifiers: COPD type: unspecified COPD Qualified Code(s): J44.9 - Chronic obstructive pulmonary disease, unspecified Plan: Continue Arnuity. Use rescue inhaler as needed. Follow-up with pulmonology. (3) Bipolar disorder: Code(s): F31.9 - Bipolar disorder, unspecified Qualifiers: Active/Remission status: remission status unspecified Qualified Code(s): F31.9 - Bipolar disorder, unspecified Plan: Continue counseling. Continue Depakote. (4) Hyperlipidemia: Code(s): E78.5 - Hyperlipidemia, unspecified Qualifiers: Hyperlipidemia type: pure hypercholesterolemia Qualified Code(s): E78.00 - Pure hypercholesterolemia, unspecified Plan: Continue statins. LDL goal is less than 70. (5) Hypertension: Code(s): I10 - Essential (primary) hypertension Qualifiers: Hypertension type: primary hypertension Qualified Code(s): I10 - Essential (primary) hypertension Plan: Continue amlodipine and losartan-hydrochlorothiazide. Blood pressure goal is equal or less than 130/80. (6) Hypothyroidism: Code(s): E03.9 - Hypothyroidism, unspecified Qualifiers: Hypothyroidism type: acquired Qualified Code(s): E03.9 - Hypothyroidism, unspecified Plan: Continue levothyroxine. Monitor TSH. Orders: Orders Microalbumin, Random (w Creat) 4 Months E11.9 - Type 2 diabetes mellitus without complications Thyroid Stimulating Hormone Today E03.9 - Hypothyroidism, unspecified Lipid Panel 4 Months E78.5 - Hyperlipidemia, unspecified Comprehensive [place]. Panel Fast 4 Months E11.9 - Type 2 diabetes mellitus without complications Referrals Pulmonology Referral J44.9 - Chronic obstructive pulmonary disease, unspecified Medications: Changed From fluticasone furoate 100 mcg/actuation (Arnuity Ellipta) 1 inh inhalation DAILY 14 ea 0RF To fluticasone furoate 100 mcg/actuation (Arnuity Ellipta) 1 inh inhalation DAILY 30 ea 6RF 30 days From cyclobenzaprine 5 mg PO BEDTIME PRN 14 tabs 0RF muscle spasm M54.9 - Dorsalgia, unspecified To cyclobenzaprine 5 mg PO BEDTIME PRN 30 tabs 0RF muscle spasm 30 days M54.9 - Dorsalgia, unspecified Refilled metformin 500 mg PO DAILY 90 tabs 1RF E11.9 - Type 2 diabetes mellitus without complications amlodipine (Norvasc) 5 mg PO DAILY 90 tabs 0RF I10 - Essential (primary) hypertension albuterol sulfate 90 mcg/actuation (Ventolin HFA) 2 puffs inhalation Q4-6H PRN 8.5 grams 2RF shortness of breath or wheezing J44.9 - Chronic obstructive pulmonary disease, unspecified, J45.909 - Unspecified asthma, uncomplicated metoprolol tartrate STOP METOPROLOL SUCCINATE (ONCE A DAY) AND START THIS TWICE A DAY 50 mg PO BID 180 tabs 3RF 90 days melatonin 5 mg PO BEDTIME PRN 30 tabs 1RF sleep G47.00 - Insomnia, unspecified Discontinued meloxicam Discontinued Reason: Patient Completed Course 7.5 mg PO DAILY 14 tabs 0RF M54.9 - Dorsalgia, unspecified Coding Level of Care Code Est Pt Level 4 (71249) Complex EM visit Add On G2211 Diagnoses Type 2 diabetes mellitus without complication, without long-term current use of insulin E11.9 Diabetes mellitus type: type 2 Diabetes mellitus fpc insulin use: without fpc use Diabetes mellitus complication status: without complication Chronic obstructive pulmonary disease, unspecified COPD type J44.9 COPD type: unspecified COPD Bipolar affective disorder, remission status unspecified F31.9 Active/Remission status: remission status unspecified Pure hypercholesterolemia E78.00 Hyperlipidemia type: pure hypercholesterolemia Primary hypertension I10 Hypertension type: primary hypertension Acquired hypothyroidism E03.9 Hypothyroidism type: acquired Time Spent (min) 24
[2024-03-28 15:38] VITALS: BP 132/88
== END 2024-03-28 14:16 | disposition home or self-care (01) ==
PROVIDERS: PCP Internal Medicine; Visit Provider Internal Medicine
DX: E11.9 Type 2 diabetes mellitus without complications (principal); J44.9 Chronic obstructive pulmonary disease, unspecified; F31.9 Bipolar disorder, unspecified; E78.00 Pure hypercholesterolemia, unspecified; I10 Essential (primary) hypertension; E03.9 Hypothyroidism, unspecified
CPT/HCPCS: 99214; G2211

== ENCOUNTER 2024-04-03 06:38 | Day surgery (SDC) | payer OTHER, SELFPAY ==
--- NOTE | 2024-04-03 06:09 | MHC.SHP ---
Pre-Procedural Eval Section A - 24 Hr Update-Section A only Date of Service: 04/03/24 Section B - Complete if H&P > 30 days Chief Complaint: Gastro-esophageal reflux disease without esophagit Details of Present Illness: diarrhea and fh polyps, Relevant Family History (Specify if Yes): No Relevant Social History: None Present Medications: see Short Stay Collaborative assessment Medical History: Significant History (Precordial chest pain Heart palpitations Nausea and vomiting RUQ abdominal tenderness Adult general medical exam Screening for colon cancer Bilateral hip pain Back pain Screening for prostate cancer Allergic rhinitis Bipolar disorder COPD (chronic obstructive pulmonary disease) Diabetes) History of Previous Operations: Relevant previous surgery/procedure and date(s) (History of cholecystectomy History of esophagogastroduodenoscopy (EGD) History of colonoscopy History of bladder surgery) Allergies: Allergies Allergy/AdvReac Type Severity Reaction Status Date / Time No Known Allergies Allergy Verified 03/28/24 13:56 Review of Systems Sugical H&P ROS: Negative: Constitution, Cardiovascular, Respiratory, Neurological, Psychiatric, Hem-Onc, Allergic/Immunologic, Gastrointestinal, Genitourinary, Musculoskeletal, Integumentary, Endocrine and Eyes/Ears/Nose/Throat Exam Surgical H&P Exam: Normal: HEENT, Normal: Heart, Normal: Lungs, Normal: Extremities, Normal: Abdomen, Normal: Skin and Normal: Neurological Plan Diagnosis/Plan: Unchanged I have reviewed the history and physical and performed a pertinent physical examination on my patient. No changes have occurred unless specified. Time Spent With Patient Time: Total time managing care of this patient today ____ minutes.
[2024-04-03 06:46] VITALS: BMI 33.9
[2024-04-03] MEDS: Lactated Ringers 1,000 ML 80 ML IVCONT (07:06)
[2024-04-03 07:11] LABS: Glucose, Whole Blood 95 mg/dL (60-115)
--- NOTE | 2024-04-03 07:30 | HO.ANESPROP2 ---
Documented by User: Jose Marques MD 04/03/24 08:07 HPI - Anesthesia Eval Consult details Narrative: 54 M for egd/colo PMFSH Past Medical History Medical History Pre-op examination Precordial chest pain Heart palpitations Nausea and vomiting RUQ abdominal tenderness Adult general medical exam Screening for colon cancer Bilateral hip pain Back pain Screening for prostate cancer Allergic rhinitis Bipolar disorder COPD (chronic obstructive pulmonary disease) Diabetes Family History Family History Father Prostate cancer Other Mental health disorder Substance use disorder Surgical History Surgical History H/O left knee surgery History of cholecystectomy History of esophagogastroduodenoscopy (EGD) History of colonoscopy Social History Social History Housing: House Alcohol intake: former Patient Tobacco Use Status: Former Tobacco user Tobacco use type: Cigarette Years Smoked: pt quit 15 years ago e-Cigarette/Vaping Use: Never Used Second Hand Smoke Exposure: No Use of substances other than those prescribed or required for medical reasons: No Are you DNR?: No Advance Directives: No Advance Directives Information Provided: Yes service: No Current occupational status: unemployed 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 Cognitive needs: No Hearing needs: No Vision needs: Yes (glasses) Meds Allergies Allergy/AdvReac Type Severity Reaction Status Date / Time No Known Allergies Allergy Verified 04/03/24 07:11 Exam Airway Mallampati Class: II TM Dist: >3cm Loose/Missing/Broken Teeth: Yes Assessment and Plan Assessment Anesthesia Assessment: Anesthesia Plan Discussed and Chart Reviewed Final Anesthetic Review NPO: Yes ASA Class: III Final Preanesthetic Review: No Changes in Pt Med Stat, Meds/Allgs Chart Reviewed, Consent Obtained/Reviewed and Anes Risks/Benef Reviewed Patient Risk: Intermediate Procedure Risk: Low Anesthetic Plan Anesthetic Plan: MAC: Disposition: Standard PACU Documented by User: Heidi Elizabeth MD [facility] Active Problems Active Problems: All Active Problems Pre-op examination (Acute) Tear of medial meniscus of left knee (Acute) Allergic rhinitis (Acute) Diabetes (Acute) COPD (chronic obstructive pulmonary disease) (Acute) Bipolar disorder (Acute) Preoperative cardiovascular examination (Acute) Zejxw-Ivzonpytl-Kqemk (WPW) pattern (Acute) Heart murmur (Acute) Post-cholecystectomy syndrome (Acute) Left knee pain (Acute) Anxiety (Acute) Depression (Acute) Benign prostate hyperplasia (Acute) Insomnia (Acute) Asthma (Acute) Arthritis (Acute) Hyperlipidemia (Acute) GERD (gastroesophageal reflux disease) (Acute) Hypertension (Acute) Hypothyroidism (Acute) Past Medical History Medical History Pre-op examination Precordial chest pain Heart palpitations Nausea and vomiting RUQ abdominal tenderness Adult general medical exam Screening for colon cancer Bilateral hip pain Back pain Screening for prostate cancer Allergic rhinitis Bipolar disorder COPD (chronic obstructive pulmonary disease) Diabetes Family History Family History Father Prostate cancer Other Mental health disorder Substance use disorder Family history of problems with anesthesia: No Surgical History Surgical History H/O left knee surgery History of cholecystectomy History of esophagogastroduodenoscopy (EGD) History of colonoscopy History of Problems with Anesthesia: No Social History Social History Housing: House Alcohol intake: former Patient Tobacco Use Status: Former Tobacco user Tobacco use type: Cigarette Years Smoked: pt quit 15 years ago e-Cigarette/Vaping Use: Never Used Second Hand Smoke Exposure: No Use of substances other than those prescribed or required for medical reasons: No Are you DNR?: No Advance Directives: No Advance Directives Information Provided: Yes service: No Current occupational status: unemployed 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 Cognitive needs: No Hearing needs: No Vision needs: Yes (glasses) Meds Allergies Allergy/AdvReac Type Severity Reaction Status Date / Time No Known Allergies Allergy Verified 04/03/24 07:11 Active Medications: Current Medications Lactated Ringer's (Lr) 1,000 mls @ 80 mls/hr IVCONT .[id number] JUAN Last Admin: 04/03/24 07:06 Dose: 80 mls/hr Exam Height,Weight and Vital Signs: Height 6 ft Weight 113.398 kg Pertinent Lab Results Pertinent Lab Results: Laboratory Tests 04/03/24 07:01 POC Glucose 95 Assessment and Plan Final Anesthetic Review Family History of Problems with Anesthesia: No History of Problems with Anesthesia: No
--- NOTE | 2024-04-03 07:33 | W.PM.OPN ---
Operative Note Operative Note Date of Service: 04/03/24 Narrative: Operative Information Procedure Description: EGD, Colonoscopy Indication: reflux, diarrhea, hx of polyps Anesthesia: MAC FLEXIBLE TRANSORAL UPPER GASTROINTESTINAL ENDOSCOPY AND COLONOSCOPY PROCEDURE NOTE UPPER ENDOSCOPY Consent: Indications for the procedure and potential complications of bleeding, perforation, reaction to medications and missed diagnosis were discussed with the patient and informed consent was obtained. Instrument: Olympus GIF H 190 J mid size upper endoscope Monitoring: Vital signs and clinical assessment, continuous EKG monitoring, Pulse oximetry, Carbon Dioxide monitoring and blood pressure monitoring were done throughout the procedure. Procedure: The patient was placed in the left lateral decubitis position and pre-procedure medications were administered and a bite block was placed. The endoscope was inserted into the mouth and advanced under direct vision to the third part of duodenum. A careful inspection was made as the upper endoscope was withdrawn including a retroflexed examination of the proximal stomach; Findings and interventions are described below. Findings: Larynx:normal Esophagus: GE junction at 40 cm, diaphragm hiatus at 40 cm, irregular Z line, bx taken to r/o barretts, also taken from distal and proximal esophagus, LEs slightly lax Stomach: mild patchy erythema. Biopsies were obtained. Grade 2 flap valve on retroflexed examination of the cardia. Duodenum: Normal bulb and descending duodenum, bx taken Intervention: Biopsies as noted above, COLONOSCOPY Instrument: Olympus variable stiffness pediatric scope 190L Colonoscopy Monitoring: Vital signs and clinical assessment, continuous EKG monitoring, Pulse oximetry, Carbon Dioxide monitoring and blood pressure monitoring were done throughout the procedure. Colon withdrawal time was 9 minutes. Procedure: The patient was placed in the left lateral decubitis position and pre-procedure medications were administered. After a digital rectal examination of the ano-rectum, the video colonoscope was inserted into the rectum and advanced through the colon to the cecum/TI. The colonoscope was slowly withdrawn in a retrograde panoramic fashion and the colon mucosa was carefully examined including a retroflexed view of the rectum. Findings and interventions are described below. Procedure Difficulty:moderate Findings: Terminal Ileum-normal, bx taken random colon bx taken Cecum:normal Ascending Colon: normal Transverse Colon -normal Descending Colon:normal Sigmoid Colon: normal Rectum: Retroflexion with small internal hemorrhoids, grade I Anorectum - normal Colon preparation: [place] Bowel Preparation Scale Right colon; 2 Transverse colon: 2 Left colon; 2 (0 = Unprepared colon segment with mucosa not seen due to solid stool that cannot be cleared. 1 = Portion of mucosa of the colon segment seen, but other areas of the colon segment not well seen due to staining, residual stool and/or opaque liquid. 2 = Minor amount of residual staining, small fragments of stool and/or opaque liquid, but mucosa of colon segment seen well. 3 = Entire mucosa of colon segment seen well with no residual staining, small fragments of stool or opaque liquid) Impression and Post Procedure Diagnosis: Endoscopy Findings: lax LES mild esophagitis, possible barretts mild gastritis Colonoscopy Findings: internal hemorrhoids Plan: Await Pathology results Repeat Colonoscopy in 10 years or earlier if clinically indicated High fiber diet leaflet avoid straining at stool, epsom salts and sitz bath, anusol supps or cream reflux precautions Above findings were reviewed with the patient and relevant handouts were provided if indicated.
[2024-04-03] MEDS: Albuterol Sulfate (0.083%) 2.5 MG/3 ML VIAL.NEB INHALE (07:38)
[2024-04-03 08:16] VITALS: BP 123/80; PULSE 90; RESP 16; TEMP 36.6; O2SAT 96
[2024-04-03 08:31] VITALS: BP 142/94; PULSE 88; RESP 16; O2SAT 97
[2024-04-03 08:46] VITALS: BP 149/96; PULSE 89; RESP 16; TEMP 36.6; O2SAT 96
== END 2024-04-03 09:09 | disposition home or self-care (01) ==
PROVIDERS: PCP Internal Medicine; Visit Provider Internal Medicine Gastroenterology
PROC: (CPT 45380; principal; 2024-04-03 07:30)
DX: Z12.11 Encounter for screening for malignant neoplasm of colon (principal); Z86.010 Personal history of colon polyps; K64.0 First degree hemorrhoids; R19.7 Diarrhea, unspecified; K91.5 Postcholecystectomy syndrome; K21.9 Gastro-esophageal reflux disease without esophagitis; K29.50 Unspecified chronic gastritis without bleeding; K20.80 Other esophagitis without bleeding; K22.89 Other specified disease of esophagus; K44.9 Diaphragmatic hernia without obstruction or gangrene; R00.2 Palpitations; I45.6 Pre-excitation syndrome; J44.9 Chronic obstructive pulmonary disease, unspecified; E11.9 Type 2 diabetes mellitus without complications; F31.9 Bipolar disorder, unspecified; Z90.49 Acquired absence of other specified parts of digestive tract; Z79.84 Long term (current) use of oral hypoglycemic drugs; Z79.899 Other long term (current) drug therapy; Z56.0 Unemployment, unspecified; Z87.891 Personal history of nicotine dependence
CPT/HCPCS: 45380; 43239; 82947; 88305; 88313; 88342; J2704

== ENCOUNTER → 2024-04-03 06:38 | Outpatient (BNV) | payer OTHER, SELFPAY | PROVIDERS: PCP Internal Medicine; Visit Provider Internal Medicine Gastroenterology | DX: R19.7 Diarrhea, unspecified (principal); Z86.010 Personal history of colon polyps; K64.0 First degree hemorrhoids; K21.00 Gastro-esophageal reflux disease with esophagitis, without bleeding; K29.70 Gastritis, unspecified, without bleeding | CPT/HCPCS: 43239; 45380 ==

== ENCOUNTER 2024-04-12 14:47 | Outpatient (AMB) | payer OTHER, SELFPAY ==
--- NOTE | 2024-04-12 14:48 | MHC.OFFVIS ---
Intake Visit Reasons: Lt Knee 12/23/23 DR Intake Note: [place] is a 54 year old male who presents with complaints of mild intermittent discomfort and stiffness in his left knee after undergoing left knee arthroscopic surgery on 12/23/2023. He continues to go to formal physical therapy 2 times per week. He denies any fevers or chills. He continues to take Tylenol as needed for his discomfort. Allergies No Known Allergies Allergy (Verified 04/12/24 14:49) Medication List - Last Reconciled 04/12/24 by Bg Shahid MD acetaminophen (Tylenol) 650 mg (2 x 325 mg) PO Q6H PRN albuterol sulfate 90 mcg/actuation (Ventolin HFA) 2 puffs inhalation Q4-6H PRN amlodipine (Norvasc) 5 mg PO DAILY aspirin 81 mg PO DAILY cholestyramine (with sugar) 4 gram 1 ea PO BID cyclobenzaprine 5 mg PO BEDTIME PRN 30 days divalproex (Depakote) 500 mg PO BID fluticasone furoate 100 mcg/actuation (Arnuity Ellipta) 1 inh inhalation DAILY 30 days levothyroxine (Synthroid) 50 mcg PO DAILY [id number] 24,000-76,000 -120,000 unit (Creon) 2 caps PO BID 30 days losartan-hydrochlorothiazide 100-25 mg (Hyzaar) 1 tab PO DAILY melatonin 5 mg PO BEDTIME PRN metformin 500 mg PO DAILY metoprolol tartrate 50 mg PO BID 90 days montelukast (Singulair) 10 mg PO DAILY omeprazole 20 mg PO DAILY oxybutynin chloride 5 mg PO DAILY quetiapine 50 mg PO DAILY sertraline (Zoloft) 50 mg PO DAILY simvastatin 40 mg PO DAILY FOR[facility] Medical History Pre-op examination Precordial chest pain Heart palpitations Nausea and vomiting RUQ abdominal tenderness Adult general medical exam Screening for colon cancer Bilateral hip pain Back pain Screening for prostate cancer Allergic rhinitis Bipolar disorder COPD (chronic obstructive pulmonary disease) Diabetes Surgical History H/O left knee surgery History of cholecystectomy History of esophagogastroduodenoscopy (EGD) History of colonoscopy Family History Father Prostate cancer Other Mental health disorder Substance use disorder Social History Housing: House Alcohol intake: former Patient Tobacco Use Status: Former Tobacco user Tobacco use type: Cigarette Years Smoked: pt quit 15 years ago e-Cigarette/Vaping Use: Never Used Second Hand Smoke Exposure: No service: No Current occupational status: unemployed 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 Cognitive needs: No Hearing needs: No Vision needs: Yes (glasses) Physical Exam Const Other: Well-nourished well-developed very friendly male awake alert and oriented x3 in no acute distress Extrem Other: Bilateral lower extremity examination shows good capillary refill, no skin lesions noted, normal sensation light touch Left knee examination shows that the surgical incisions are well healed, no erythema, minimal crepitus with range of motion, mild discomfort with range of motion, no instability Assessment & Plan Assessment & Plan (1) Left knee pain: Code(s): M25.562 - Pain in left knee Category: Medical Plan Mr. Grayson continues to do fairly well after undergoing left knee arthroscopic surgery on 12/23/2023. He does have residual discomfort due to early degenerative joint disease. I had a lengthy discussion with the patient regarding the treatment options. At this point the patient's symptoms are tolerable to him. We will hold off on a cortisone injection. He will continue going to formal physical therapy for now. He will gradually transition to a home exercise program. Will contact me prior to his follow-up appointment in 2 months should his symptoms worsen in any way. Feel free to call me at any time should questions regarding his orthopedic management arise. I spent 22 minutes in reviewing the patient's records and imaging studies, seeing the patient and documenting in the medical record. Coding Level of Care Code Est Pt Level 3 (36727) Diagnoses Left knee pain M25.562
== END 2024-04-12 15:02 | disposition home or self-care (01) ==
PROVIDERS: PCP Internal Medicine; Visit Provider Orthopaedic Surgery
DX: M25.562 Pain in left knee (principal)
CPT/HCPCS: 99212

== ENCOUNTER → 2024-04-12 14:47 | Outpatient (BNVA) | payer OTHER, SELFPAY | PROVIDERS: PCP Internal Medicine; Visit Provider Orthopaedic Surgery | DX: M25.562 Pain in left knee (principal) | CPT/HCPCS: 99212 ==

== ENCOUNTER 2024-04-17 10:42 | Outpatient (REF) | payer OTHER, SELFPAY | END 2024-04-17 10:43 | disposition home or self-care (01) | LOC: HO.LAB 10:42 | PROVIDERS: PCP Internal Medicine; Visit Provider Internal Medicine | DX: K21.9 Gastro-esophageal reflux disease without esophagitis (principal); K91.5 Postcholecystectomy syndrome; K58.9 Irritable bowel syndrome, unspecified; E03.9 Hypothyroidism, unspecified; D12.6 Benign neoplasm of colon, unspecified | CPT/HCPCS: 36415; 84443; 99212 ==

== ENCOUNTER 2024-04-17 11:21 | Outpatient (AMB) | payer OTHER, SELFPAY ==
--- NOTE | 2024-04-17 11:37 | A.OFFVIS_ITS ---
Vital Signs 04/17/24 11:38 Height 6 ft Weight 252 lb BMI 34.2 BP 111/70 Blood Pressure Location Lt brachial Position Sitting Pulse 62 Intake Visit Reasons: S/p egd/colon Intake Note: Patient follow up for EGD/Colonoscopy results Patient denies any GI issues. Bpm Architect Required: Yes Bpm Architect Name: Oscar Wilson [id number] Accompanied by: Self / Same As Patient Allergies No Known Allergies Allergy (Verified 04/17/24 11:35) HPI HPI S/p egd/colon: Details: Assessment & Plan (1) Post-cholecystectomy syndrome: Code(s): K91.5 - Postcholecystectomy syndrome Category: Medical (2) GERD (gastroesophageal reflux disease): Code(s): K21.9 - Gastro-esophageal reflux disease without esophagitis Category: Medical Plan [place] #[place] Live HE continues with cholestyramine (NOT CARAFATE) bid with good control of the diarrhea and he feels that the creon has helped the gas and bloating. He does note that eating red meat seems to trigger diarrhea. He also continues on omeprazole with good control of his GERD. He is aware of the upcoming EGD and the follow up with me in April. We will keep that date. EGD/COLONOSCOPY 04/03/24 Findings: Larynx:normal Esophagus: GE junction at 40 cm, diaphragm hiatus at 40 cm, irregular Z line, bx taken to r/o barretts, also taken from distal and proximal esophagus, LEs slightly lax Stomach: mild patchy erythema. Biopsies were obtained. Grade 2 flap valve on retroflexed examination of the cardia. Duodenum: Normal bulb and descending duodenum, bx taken Findings: Terminal Ileum-normal, bx taken random colon bx taken Cecum:normal Ascending Colon: normal Transverse Colon -normal Descending Colon:normal Sigmoid Colon: normal Rectum: Retroflexion with small internal hemorrhoids, grade I Anorectum - normal Impression and Post Procedure Diagnosis: Endoscopy Findings: lax LES mild esophagitis, possible barretts mild gastritis Colonoscopy Findings: internal hemorrhoids Plan: Await Pathology results Repeat Colonoscopy in 10 years or earlier if clinically indicated High fiber diet leaflet avoid straining at stool, epsom salts and sitz bath, anusol supps or cream reflux precautions BIOPSY Received: 04/03/24 Diagnosis A. Duodenum, biopsy: Duodenal mucosa with preserved villi and no specific change. B. Stomach, biopsy: Gastric body mucosa with focal minimal chronic inactive inflammation; negative for H pylori, intestinal metaplasia and dysplasia. C. Gastroesophageal junction, biopsy: Squamous mucosa with focal intraepithelial neutrophils and columnar mucosa with mild chronic active inflammation and hyperplasia, consistent with esophagitis. D. Esophagus, distal, biopsy: Squamous mucosa with no specific change; no columnar mucosa present. E. Esophagus, proximal, biopsy: Squamous mucosa with no specific change; no columnar mucosa present. F. Terminal ileum, biopsy: Ileal mucosa with no specific change. G. Colon, random, biopsy: Colonic mucosa with lymphoid aggregates and minor crypt distortion, otherwise no specific change. TODAY'S VISIT Estonian #[id number] He is agreeable to a 5 year follow up as he has a hx of polyps removed in [place]. The procedure was well tolerated. The results were explained and the patient is agreeable to the follow-up interval as stated. The bowel pattern has returned to normal. Education was provided to tell any 1st degree relatives about their findings to be sure that they are screened by age 45. Educated that they will be put on a recall list when it is time for their repeat scope but should they move out of state or away from the hospital they will need to remember along with their primary to repeat the procedure in a timely fashion to avoid any adverse complications. Since he had active esophagitis will increase his o2o to 20mg bid from qd. ROV 6 mos. PFS Medical History (Updated 04/20/24 @ 08:50 by MAMADOU Hong) Preoperative cardiovascular examination Pre-op examination Precordial chest pain Heart palpitations Nausea and vomiting RUQ abdominal tenderness Adult general medical exam Screening for colon cancer Bilateral hip pain Back pain Screening for prostate cancer Allergic rhinitis Bipolar disorder COPD (chronic obstructive pulmonary disease) Diabetes Surgical History H/O left knee surgery History of cholecystectomy History of esophagogastroduodenoscopy (EGD) History of colonoscopy Family History Father Prostate cancer Other Mental health disorder Substance use disorder Social History Housing: House Alcohol intake: former Patient Tobacco Use Status: Former Tobacco user Tobacco use type: Cigarette Years Smoked: pt quit 15 years ago e-Cigarette/Vaping Use: Never Used Second Hand Smoke Exposure: No service: No Current occupational status: unemployed 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 Cognitive needs: No Hearing needs: No Vision needs: Yes (glasses) Review of Systems Const Denies fatigue, Denies fever(s), Denies night sweats, Denies poor appetite and Denies weight loss Eyes Details: glasses Reports requires corrective lenses ENT Reports Normal hearing present, Denies dental pain, Denies dysphagia, Denies hearing loss, Denies mouth pain, Denies odynophagia, Denies throat swelling, Denies tongue swelling and Reports other (Dentition adequate) Card Reports no additional complaints Resp Reports no additional complaints GI Details: Denies abdominal pain, Denies melena, Denies bloating, Denies hematochezia, Denies constipation, Denies GI cramping, Denies dysphagia, Denies excessive flatus, Denies early satiety, Reports heartburn, Reports diarrhea, Denies nausea, Denies odynophagia, Denies vomiting and Denies hematemesis Skin/Breast Denies pruritus, Denies lesions, Denies rash and Denies jaundice Neuro Reports Normal hearing present and Denies Abnormal speech present Endo Denies fatigue Aller/Immun Denies throat swelling and Denies tongue swelling Physical Exam Vital Signs: Last Vital Signs Pulse 62 04/17/24 11:38 BP 111/70 04/17/24 11:38 BMI result Body Mass Index 34.2 Const General: cooperative, no acute distress, well developed and well groomed Nutritional Appearance: well nourished and obese Orientation/consciousness: oriented to person, oriented to place and oriented to time Limitations: language barrier HEENT Head: Yes normocephalic and Yes atraumatic Eyes General: appearance normal, both eyes and all related structures Pupils: Equal, round and reactive pupils present Neck Neck: Yes normal visual inspection and Yes no lymphadenopathy Thyroid: Thyroid normal Resp Effort & Inspection: normal respiratory effort and able to speak in complete sentences Auscultation: clear to auscultation bilaterally Cardio Rate: regular rate Rhythm: regular rhythm Heart sounds: Normal, physiologic split S2 sound present Peripheral pulses: radial pulses present and posterior tibial pulses present GI Inspection: No distended, No Abdominal panniculus present and Yes obesity Palpation (GI): Soft to palpation, nontender, no guarding, not rigid and No hepatosplenomegaly present Percussion: Yes normal to percussion Auscultation: normal bowel sounds Rectal Exam - Male: Yes deferred Skin General skin exam: no rashes or lesions noted, turgor normal, skin not dry, no jaundice, No spider nevi and no striae Rashes: no rashes Nails: normal Neuro General: oriented to person, oriented to place and oriented to time Cranial nerves: Yes Equal, round and reactive pupils present and Yes Normal hearing present Speech: No Abnormal speech present Extrem General: Yes normal to inspection, No clubbing, No cyanosis and No edema Psych Appearance: grossly normal and well kempt Mental Status: mental status grossly normal Speech and movement: Normal speech and movement present Affect: normal affect Attitude: cooperative Thought process: Normal thought process present and not confabulating Thought content: Normal thought content present Insight: Limited insight present (Psych) Judgement: Limited judgement present (Psych) Results Reviewed Results Reviewed: EGD/COLONOSCOPY 04/03/24 Findings: Larynx:normal Esophagus: GE junction at 40 cm, diaphragm hiatus at 40 cm, irregular Z line, bx taken to r/o barretts, also taken from distal and proximal esophagus, LEs slightly lax Stomach: mild patchy erythema. Biopsies were obtained. Grade 2 flap valve on retroflexed examination of the cardia. Duodenum: Normal bulb and descending duodenum, bx taken Findings: Terminal Ileum-normal, bx taken random colon bx taken Cecum:normal Ascending Colon: normal Transverse Colon -normal Descending Colon:normal Sigmoid Colon: normal Rectum: Retroflexion with small internal hemorrhoids, grade I Anorectum - normal Impression and Post Procedure Diagnosis: Endoscopy Findings: lax LES mild esophagitis, possible barretts mild gastritis Colonoscopy Findings: internal hemorrhoids Plan: Await Pathology results Repeat Colonoscopy in 10 years or earlier if clinically indicated High fiber diet leaflet avoid straining at stool, epsom salts and sitz bath, anusol supps or cream reflux precautions BIOPSY Received: 04/03/24 Diagnosis A. Duodenum, biopsy: Duodenal mucosa with preserved villi and no specific change. B. Stomach, biopsy: Gastric body mucosa with focal minimal chronic inactive inflammation; negative for H pylori, intestinal metaplasia and dysplasia. C. Gastroesophageal junction, biopsy: Squamous mucosa with focal intraepithelial neutrophils and columnar mucosa with mild chronic active inflammation and hyperplasia, consi stent with esophagitis. D. Esophagus, distal, biopsy: Squamous mucosa with no specific change; no columnar mucosa present. E. Esophagus, proximal, biopsy: Squamous mucosa with no specific change; no c olumnar mucosa present. F. Terminal ileum, biopsy: Ileal mucosa with no specific change. G. Colon, random, biopsy: Colonic mucosa with lymphoid aggregates and minor crypt distortion, otherwise no specific change. Assessment & Plan Assessment & Plan (1) Tubular adenoma of colon: Comment: 04/2024 scope= negative study repeat in 5 years due to history of polyps; prior polyps removed in [place] per pt Code(s): D12.6 - Benign neoplasm of colon, unspecified Category: Medical (2) Post-cholecystectomy syndrome: Code(s): K91.5 - Postcholecystectomy syndrome Category: Medical (3) GERD (gastroesophageal reflux disease): Code(s): K21.9 - Gastro-esophageal reflux disease without esophagitis Category: Medical Plan [place] #[id number] He is agreeable to a 5 year follow up as he has a hx of polyps removed in [place]. The procedure was well tolerated. The results were explained and the patient is agreeable to the follow-up interval as stated. The bowel pattern has returned to normal. Education was provided to tell any 1st degree relatives about their findings to be sure that they are screened by age 45. Educated that they will be put on a recall list when it is time for their repeat scope but should they move out of state or away from the hospital they will need to remember along with their primary to repeat the procedure in a timely fashion to avoid any adverse complications. Since he had active esophagitis will increase his o2o to 20mg bid from qd. He also continues on his cholestyramine and Creon with control of his post cholecystectomy syndrome which could be contributing somewhat to his esophagitis via the bile component. ROV 6 mos. Medications: Changed From omeprazole 20 mg PO DAILY 90 caps 0RF K21.9 - Gastro-esophageal reflux disease without esophagitis To omeprazole 20 mg PO BID 180 caps 0RF K21.9 - Gastro-esophageal reflux disease without esophagitis Refilled [id number] 24,000-76,000 -120,000 unit (Creon) administer with meals and/or snacks 2 caps PO BID 120 caps 6RF 30 days K58.9 - Irritable bowel syndrome without diarrhea Coding Level of Care Code Est Pt Level 4 (82293) Diagnoses Tubular adenoma of colon D12.6 Post-cholecystectomy syndrome K91.5 GERD (gastroesophageal reflux disease) K21.9
[2024-04-17 11:38] VITALS: BP 111/70; PULSE 62; BMI 34.2
== END 2024-04-17 12:01 | disposition home or self-care (01) ==
PROVIDERS: PCP Nurse Practitioner Family; Visit Provider Nurse Practitioner
DX: D12.6 Benign neoplasm of colon, unspecified (principal); K91.5 Postcholecystectomy syndrome; K21.9 Gastro-esophageal reflux disease without esophagitis
CPT/HCPCS: 99214

== ENCOUNTER 2024-05-11 15:01 | Outpatient (AMB) | payer OTHER, SELFPAY ==
[2024-05-11 15:06] VITALS: BP 128/70; PULSE 66; O2SAT 97; BMI 34.1
--- NOTE | 2024-05-11 15:06 | MHC.OFFVIS ---
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 The patient is a 54-year-old gentleman with known history of WPW presenting with worsening dyspnea on exertion. The patient has moderate degree of dyspnea on exertion. Apparently when going up a flight of stairs or an incline. Symptoms Seems to be progressively getting worse. Has not seen any Significant improvement. Currently he is awaiting a cardiac catheterization for a ablation I believe at [facility]. Hopefully this provides some relief. In the meantime the patient does have a remote smoking history. He quit about 15 years ago. Still has a cough. Nonproductive in nature. He was hoping that by now his symptoms from smoking would be resolved. No recent x-rays to review. No recent pulmonary function study. The patient also has significant daytime drowsiness. His [place] score is elevated 10/24. He does have documented snoring and apnea. The patient needs to have a sleep study. In view of his cardiac history with cardiac arrhythmias I do believe that an in-lab sleep study we more beneficial. Will request a in-lab polysomnogram at this time. The patient will follow-up after his PFTs. Also request a chest x-ray in the sleep study and then will review them in the coming weeks. [facility] Medical History (Updated 05/11/24 @ 15:41 by Car Garcia MD) Preoperative cardiovascular examination Pre-op examination Precordial chest pain Heart palpitations Nausea and vomiting RUQ abdominal tenderness Adult general medical exam Screening for colon cancer Bilateral hip pain Back pain Screening for prostate cancer Allergic rhinitis Bipolar disorder COPD (chronic obstructive pulmonary disease) Diabetes Surgical History H/O left knee surgery History of cholecystectomy History of esophagogastroduodenoscopy (EGD) History of colonoscopy Family History Father Prostate cancer Other Mental health disorder Substance use disorder Social History Housing: House Alcohol intake: former Patient Tobacco Use Status: Former Tobacco user Tobacco use type: Cigarette Years Smoked: pt quit 15 years ago e-Cigarette/Vaping Use: Never Used Second Hand Smoke Exposure: No service: No Current occupational status: unemployed 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 Cognitive needs: No Hearing needs: No Vision needs: Yes (glasses) Review of Systems Const Reports daytime sleepiness, Reports headache(s), Reports snoring and Reports stops breathing during sleep Eyes Reports no additional complaints ENT Reports headache(s) Card Denies chest pain, Reports palpitations and Reports dyspnea on exertion Resp Reports cough, Reports dyspnea on exertion, Reports snoring and Denies wheezing GI Reports no additional complaints Musc Reports no additional complaints Skin/Breast Denies rash Neuro Reports headache(s) Endo Reports palpitations Aller/Immun Denies wheezing Physical Exam Vital Signs: Last Vital Signs Pulse 66 05/11/24 15:06 BP 128/70 05/11/24 15:06 Pulse Ox 97 05/11/24 15:06 Oxygen Delivery Method Room Air 05/11/24 15:06 BMI result Body Mass Index 34.1 Const General: comfortable HEENT Head: Yes normocephalic Neck Neck: Yes supple Chest Chest palpation & inspection: normal inspection of the chest Resp Effort & Inspection: normal respiratory effort Auscultation: clear to auscultation bilaterally Cardio Heart sounds: S1 normal heart sound present and S2 normal heart sound present GI Palpation (GI): Soft to palpation Skin General skin exam: no rashes or lesions noted Extrem General: Yes no clubbing, cyanosis or edema Assessment & Plan Assessment & Plan (1) COPD (chronic obstructive pulmonary disease): Code(s): J44.9 - Chronic obstructive pulmonary disease, unspecified Category: Medical Qualifiers: COPD type: unspecified COPD Qualified Code(s): J44.9 - Chronic obstructive pulmonary disease, unspecified (2) Qbswu-Nqthtmmvk-Rmjpc (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 Category: Medical (3) DAV (obstructive sleep apnea): Code(s): G47.33 - Obstructive sleep apnea (adult) (pediatric) Category: Medical Plan Continue Arnuity start Incruse in lab PSG PFTs CXR F/U 2-3 months Orders: Orders RT PSG in-lab sleep study 05/11/24 G47.33 - Obstructive sleep apnea (adult) (pediatric), I45.6 - Pre-excitation syndrome, J44.9 - Chronic obstructive pulmonary disease, unspecified PFT pulmonary function test 05/11/24 G47.33 - Obstructive sleep apnea (adult) (pediatric), I45.6 - Pre-excitation syndrome, J44.9 - Chronic obstructive pulmonary disease, unspecified XR chest 2V 05/11/24 G47.33 - Obstructive sleep apnea (adult) (pediatric), I45.6 - Pre-excitation syndrome, J44.9 - Chronic obstructive pulmonary disease, unspecified Medications: New umeclidinium 62.5 mcg/actuation (Incruse Ellipta) 1 inh inhalation DAILY 30 ea 11RF 30 days J45.909 - Unspecified asthma, uncomplicated Coding Level of Care Code New Pt Level 4 (00336) Diagnoses Chronic obstructive pulmonary disease, unspecified COPD type J44.9 COPD type: unspecified COPD Svvze-Hfmxhwpov-Uixrb (WPW) pattern I45.6 DAV (obstructive sleep apnea) G47.33 Time Spent (min) 35
== END 2024-05-11 15:29 | disposition home or self-care (01) ==
PROVIDERS: PCP Internal Medicine; Visit Provider Hospitalist
DX: J44.9 Chronic obstructive pulmonary disease, unspecified (principal); I45.6 Pre-excitation syndrome; G47.33 Obstructive sleep apnea (adult) (pediatric)
CPT/HCPCS: 99204

== ENCOUNTER → 2024-05-11 15:01 | Outpatient (BNVA) | payer OTHER, SELFPAY | PROVIDERS: PCP Internal Medicine; Visit Provider Hospitalist | DX: J44.9 Chronic obstructive pulmonary disease, unspecified (principal); I45.6 Pre-excitation syndrome; G47.33 Obstructive sleep apnea (adult) (pediatric); Z87.891 Personal history of nicotine dependence | CPT/HCPCS: 99202 ==

== ENCOUNTER 2024-06-14 13:00 | Outpatient (AMB) | payer OTHER, SELFPAY ==
--- NOTE | 2024-06-14 13:09 | A.OFFVIS_ITS ---
Vital Signs 06/14/24 13:09 Weight 251 lb Intake Visit Reasons: Lt Knee 12/23/23 DR Intake Note: Berlin is a 54 year old male who presents with complaints of mild to moderate discomfort in his left knee after undergoing left knee arthroscopic surgery on 12/23/2023. He denies any fevers or chills. He has taken Flexeril and Tylenol which gave him only mild relief. He continues with his home stretching program. 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 Power System Electrical Engineer Language: Clinical Nursing Assistant Name: jaida [id number] Allergies No Known Allergies Allergy (Verified 06/14/24 13:14) Medication List - Last Reconciled 06/14/24 by Bg Shahid MD acetaminophen (Tylenol) 650 mg (2 x 325 mg) PO Q6H PRN albuterol sulfate 90 mcg/actuation (Ventolin HFA) 2 puffs inhalation Q4-6H PRN amlodipine (Norvasc) 5 mg PO DAILY aspirin 81 mg PO DAILY cholestyramine (with sugar) 4 gram 1 ea PO BID cyclobenzaprine 5 mg PO BEDTIME PRN 30 days divalproex (Depakote) 500 mg PO BID fluticasone furoate 100 mcg/actuation (Arnuity Ellipta) 1 inh inhalation DAILY 30 days levothyroxine (Synthroid) 50 mcg PO DAILY mchfho-uzglmpif-kgmbjbx 24,000-76,000 -120,000 unit (Creon) 2 caps PO BID 30 days losartan-hydrochlorothiazide 100-25 mg (Hyzaar) 1 tab PO DAILY melatonin 5 mg PO BEDTIME PRN metformin 500 mg PO DAILY metoprolol tartrate 50 mg PO BID 90 days montelukast (Singulair) 10 mg PO DAILY omeprazole 20 mg PO BID oxybutynin chloride 5 mg PO DAILY quetiapine 50 mg PO DAILY sertraline (Zoloft) 50 mg PO DAILY simvastatin 40 mg PO DAILY umeclidinium 62.5 mcg/actuation (Incruse Ellipta) 1 inh inhalation DAILY 30 days [facility] Medical History (Updated 06/14/24 @ 13:23 by Bg Shahid MD) Preoperative cardiovascular examination Pre-op examination Precordial chest pain Heart palpitations Nausea and vomiting RUQ abdominal tenderness Adult general medical exam Screening for colon cancer Bilateral hip pain Back pain Screening for prostate cancer Allergic rhinitis Bipolar disorder COPD (chronic obstructive pulmonary disease) Diabetes Surgical History H/O left knee surgery History of cholecystectomy History of esophagogastroduodenoscopy (EGD) History of colonoscopy Family History Father Prostate cancer Other Mental health disorder Substance use disorder Social History Housing: House Alcohol intake: former Patient Tobacco Use Status: Former Tobacco user Tobacco use type: Cigarette Years Smoked: pt quit 15 years ago e-Cigarette/Vaping Use: Never Used Second Hand Smoke Exposure: No service: No Current occupational status: unemployed 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 Cognitive needs: No Hearing needs: No Vision needs: Yes (glasses) Physical Exam Const Other: Well-nourished well-developed very friendly male awake alert and oriented x3 in no acute distress Extrem Other: Bilateral lower extremity examination shows good capillary refill, no skin lesions noted, normal sensation light touch Left knee examination shows that the surgical incisions are well healed, no erythema, mild crepitus with range of motion, no instability Office Procedures Joint Injection/Aspiration Joint Injection/Aspiration Primary Site: left knee Prep: site was prepped using aseptic technique Injected: 40 mg of, DepoMedrol and 1% plain lidocaine Procedure: The patient tolerated the procedure well Coding 97182 - Large joint Procedure code (CPT) selection complete Assessment & Plan Assessment & Plan (1) Arthritis of left knee: Code(s): M17.12 - Unilateral primary osteoarthritis, left knee Category: Medical Plan Mr. Grayson presents with continued left knee discomfort after undergoing left knee arthroscopic surgery on 12/23/2023 due to early degenerative joint disease. I had a lengthy discussion with the patient regarding the treatment options. The risks and benefits of a left knee cortisone injection were discussed at length with the patient. The patient wished to proceed. He tolerated the injection well. I also gave him a prescription for Celebrex. He will contact me prior to his follow-up appointment in 3 months should any questions or concerns arise. Feel free to call me at any time should questions regarding his orthopedic management arise. I spent 22 minutes in reviewing the patient's records and imaging studies, seeing the patient and documenting in the medical record. Orders: Orders AMB Joint Injection/Aspiration Today M17.12 - Unilateral primary osteoarthritis, left knee Medications: New celecoxib (Celebrex) 200 mg PO DAILY PRN 30 caps 2RF pain Coding Level of Care Code Est Pt Level 3 (65607) Complex EM visit Add On G2211 Diagnoses Arthritis of left knee M17.12 CPT Codes Coding - 45099 Large joint: 19644 - Large joint ([id number])
== END 2024-06-14 13:21 | disposition home or self-care (01) ==
PROVIDERS: PCP Internal Medicine; Visit Provider Orthopaedic Surgery
DX: M17.12 Unilateral primary osteoarthritis, left knee (principal)
CPT/HCPCS: 20610; 99213

== ENCOUNTER → 2024-06-14 13:00 | Outpatient (BNVA) | payer OTHER, SELFPAY | PROVIDERS: PCP Internal Medicine; Visit Provider Orthopaedic Surgery | DX: M17.12 Unilateral primary osteoarthritis, left knee (principal) | CPT/HCPCS: 20610; 99212; J1010 ==

== ENCOUNTER → 2024-07-08 19:30 | Outpatient (REF) | payer OTHER, SELFPAY | LOC: HO.SL 19:30 | PROVIDERS: PCP Internal Medicine; Visit Provider Hospitalist | DX: G47.33 Obstructive sleep apnea (adult) (pediatric) (principal); I45.6 Pre-excitation syndrome; J44.9 Chronic obstructive pulmonary disease, unspecified | CPT/HCPCS: 95810 ==

== ENCOUNTER → 2024-07-08 21:44 | Outpatient (BNV) | payer OTHER, SELFPAY | PROVIDERS: PCP Internal Medicine; Visit Provider Internal Medicine | DX: G47.33 Obstructive sleep apnea (adult) (pediatric) (principal) | CPT/HCPCS: 95810 ==

== ENCOUNTER 2024-07-10 13:55 | Outpatient (AMB) | payer OTHER, SELFPAY ==
[2024-07-10 13:58] VITALS: BP 138/68; PULSE 72; BMI 34.4
--- NOTE | 2024-07-10 13:58 | MHC.OFFVIS ---
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 Required: Yes Java Lead Architect Name: PEDRO LUIS [id number] Allergies No Known Allergies Allergy (Verified 06/14/24 13:14) Medication List - Last Reconciled 07/10/24 by Bobby Marshall MD acetaminophen (Tylenol) 650 mg (2 x 325 mg) PO Q6H PRN albuterol sulfate 90 mcg/actuation (Ventolin HFA) 2 puffs inhalation Q4-6H PRN amlodipine (Norvasc) 5 mg PO DAILY aspirin 81 mg PO DAILY celecoxib (Celebrex) 200 mg PO DAILY PRN cholestyramine (with sugar) 4 gram 1 ea PO BID cyclobenzaprine 5 mg PO BEDTIME PRN 30 days divalproex (Depakote) 500 mg PO BID fluticasone furoate 100 mcg/actuation (Arnuity Ellipta) 1 inh inhalation DAILY 30 days levothyroxine (Synthroid) 50 mcg PO DAILY oqltre-swhuzrdx-sgndrfa 24,000-76,000 -120,000 unit (Creon) 2 caps PO BID 30 days losartan-hydrochlorothiazide 100-25 mg (Hyzaar) 1 tab PO DAILY melatonin 5 mg PO BEDTIME PRN metformin 500 mg PO DAILY metoprolol tartrate 50 mg PO BID 90 days montelukast (Singulair) 10 mg PO DAILY omeprazole 20 mg PO BID oxybutynin chloride 5 mg PO DAILY quetiapine 50 mg PO DAILY sertraline (Zoloft) 50 mg PO DAILY simvastatin 40 mg PO DAILY umeclidinium 62.5 mcg/actuation (Incruse Ellipta) 1 inh inhalation DAILY 30 days HPI Comments Details: Berlin returns for follow-up. In the past, he was seen regarding various symptoms including chest pain and palpitations. 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 Many comorbidities including obesity, diabetes, hypertension, dyslipidemia. He underwent a comprehensive cardiac workup. Subsequently, sent to EP for evaluation. It appears that he underwent EP study and ablation of accessory pathway. He states that he still gets some palpitations but otherwise fine for the most part. [facility] Medical History (Updated 06/14/24 @ 13:23 by Bg Shahid MD) Preoperative cardiovascular examination Pre-op examination Precordial chest pain Heart palpitations Nausea and vomiting RUQ abdominal tenderness Adult general medical exam Screening for colon cancer Bilateral hip pain Back pain Screening for prostate cancer Allergic rhinitis Bipolar disorder COPD (chronic obstructive pulmonary disease) Diabetes Surgical History H/O left knee surgery History of cholecystectomy History of esophagogastroduodenoscopy (EGD) History of colonoscopy Family History Father Prostate cancer Other Mental health disorder Substance use disorder Social History Housing: House Alcohol intake: former Patient Tobacco Use Status: Former Tobacco user Tobacco use type: Cigarette Years Smoked: pt quit 15 years ago e-Cigarette/Vaping Use: Never Used Second Hand Smoke Exposure: No service: No Current occupational status: unemployed 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 Cognitive needs: No Hearing needs: No Vision needs: Yes (glasses) Review of Systems Const Denies weakness ENT Denies dizziness Card Denies chest pain, Denies chest pain with activity, Denies syncope, Denies rapid heart rate, Denies pedal edema, Denies edema, Denies leg edema, Denies lightheadedness, Reports palpitations, Denies dyspnea, Denies dyspnea on exertion and Denies orthopnea Resp Denies cough, Denies dyspnea and Denies dyspnea on exertion GI Denies hematochezia and Denies change in stool character Musc Denies abnormal gait, Denies muscle cramps, Denies muscle weakness, Denies numbness, Denies radiating pain into limb and Denies tingling Neuro Denies abnormal gait, Denies dizziness, Denies syncope, Denies numbness, Denies tingling and Denies weakness Endo Reports palpitations Physical Exam Vital Signs: Last Vital Signs Pulse 72 07/10/24 13:58 BP 138/68 07/10/24 13:58 BMI result Body Mass Index 34.4 Const General: comfortable and no acute distress Orientation/consciousness: patient oriented x3 HEENT Other: Unremarkable Head: Yes normal to inspection Neck Neck: Yes normal visual inspection Chest Chest palpation & inspection: normal inspection of the chest Resp Auscultation: clear to auscultation bilaterally Cardio Palpation: normal PMI Heart sounds: S1 normal heart sound present, S2 normal heart sound present, no gallops, no murmurs and no rubs GI Palpation (GI): Soft to palpation Back/Spine/Pelvis Other: unremarkable Skin General skin exam: no rashes or lesions noted Neuro General: patient oriented x3 Extrem General: Yes normal to inspection Psych Mental Status: mental status grossly normal Office Procedures EKG Details: EKG with underlying sinus rhythm at 72/Min; voltage criteria for LVH; inferior nonspecific ST-T changes; [place] 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 Echocardiogram with hyperdynamic LVEF but otherwise unremarkable. In the stress test, he was able to reach 4.6 METS on Damon protocol and reached target heart rate. Had chest pain. Difficult to interpret EKG because of baseline abnormality. There was no suggestion of conduction in accessary pathway. In the perfusion part, unremarkable. In the Holter, underlying rhythm is sinus with frequent supraventricular ectopy. 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 No inducible SVT. Status post catheter ablation. He has residual palpitations could be from ectopy. No specific changes. He states he is awaiting sleep study. Otherwise, continue current medications. We will follow-up in 6 months with another echocardiogram. Total time spent including review of [facility] records, counseling, documentation, coordination of care-31 minutes. Orders: Orders ECG 3 day holter monitor 6 Months R00.2 - Palpitations Coding Level of Care Code Est Pt Level 4 (46776) Diagnoses Xqbmo-Qykmmvsij-Uwdoh (WPW) pattern I45.6 Type 2 diabetes mellitus without complication, without long-term current use of insulin E11.9 Diabetes mellitus complication status: without complication Diabetes mellitus middle or intermediate school principal insulin use: without care home use Diabetes mellitus type: type 2 Primary hypertension I10 Hypertension type: primary hypertension CPT Codes EKG - CPT: 87965-Zjjvuhcpehhqfbiqr, Complete ([id number])
== END 2024-07-10 14:27 | disposition home or self-care (01) ==
PROVIDERS: PCP Internal Medicine; Visit Provider Internal Medicine
DX: I45.6 Pre-excitation syndrome (principal); E11.9 Type 2 diabetes mellitus without complications; I10 Essential (primary) hypertension
CPT/HCPCS: 93010; 99214

== ENCOUNTER → 2024-07-10 13:55 | Outpatient (BNVA) | payer OTHER, SELFPAY | PROVIDERS: PCP Internal Medicine; Visit Provider Internal Medicine | DX: I45.6 Pre-excitation syndrome (principal); I10 Essential (primary) hypertension; E11.9 Type 2 diabetes mellitus without complications; R94.31 Abnormal electrocardiogram [ECG] [EKG] | CPT/HCPCS: 93005; 99212 ==

== ENCOUNTER 2024-07-23 14:29 | Outpatient (AMB) | payer OTHER, SELFPAY ==
[2024-07-23 14:34] VITALS: BP 128/70; PULSE 74; O2SAT 96; BMI 34.7
--- NOTE | 2024-07-23 14:34 | A.OFFVIS_ITS ---
Vital Signs 07/23/24 14:34 Height 6 ft Weight 255 lb 11.779 oz BMI 34.7 BP 128/70 Blood Pressure Location Lt brachial Position Sitting Pulse 74 Pulse Source Pulse Oximeter Pulse Oximetry (%) 96 Oxygen Delivery Method Room Air Intake Visit Reasons: COPD/PFT Follow Up Lead Driver Required: No Allergies No Known Allergies Allergy (Verified 07/23/24 14:37) HPI Comments Details: The patient is a 54-year-old gentleman with known history of WPW presenting with worsening dyspnea on exertion. The patient has moderate degree of dyspnea on exertion. Apparently when going up a flight of stairs or an incline. Symptoms Seems to be progressively getting worse. Has not seen any Significant improvement. Currently he is awaiting a cardiac catheterization for a ablation I believe at [facility]. Hopefully this provides some relief. In the meantime the patient does have a remote smoking history. He quit about 15 years ago. Still has a cough. Nonproductive in nature. He was hoping that by now his symptoms from smoking would be resolved. No recent x- rays to review. No recent pulmonary function study. The patient also has significant daytime drowsiness. His [place] score is elevated 24. He does have documented snoring and apnea. The patient needs to have a sleep study. In view of his cardiac history with cardiac arrhythmias I do believe that an in-lab sleep study we more beneficial. Will request a in-lab polysomnogram at this time. The patient will follow-up after his PFTs. Also request a chest x-ray in the sleep study and then will review them in the coming weeks. 07/23/2024 the patient is here for a pulmonary follow-up visit. He continues to have significant daytime drowsiness. His [place] score is elevated 24. He did have a sleep study. It was a difficult sleep study because he could not fall asleep. However, did have significant sleep apnea even though it was a very limited study. Likely they severity of his sleep apnea prevents him from getting adequate sleep hygiene. Therefore this point will go ahead and request a CPAP to be started VIC. In addition to that the patient continues to have cough. He responded well to the inhaler therapy. He does complaint of nasal congestion. Feel like the Singulair is helping. Will start him on a nasal steroid spray. I did also encourage him to perform sinus rinses. Will follow- up in 3 months. The patient has any worsening symptoms he will call for an earlier assessment. [facility] Medical History (Updated 07/23/24 @ 21:55 by Car Garcia MD) Chronic allergic rhinitis Preoperative cardiovascular examination Pre-op examination Precordial chest pain Heart palpitations Nausea and vomiting RUQ abdominal tenderness Adult general medical exam Screening for colon cancer Bilateral hip pain Back pain Screening for prostate cancer Allergic rhinitis Bipolar disorder COPD (chronic obstructive pulmonary disease) Diabetes Surgical History H/O left knee surgery History of cholecystectomy History of esophagogastroduodenoscopy (EGD) History of colonoscopy Family History Father Prostate cancer Other Mental health disorder Substance use disorder Social History Housing: House Alcohol intake: former Patient Tobacco Use Status: Former Tobacco user Tobacco use type: Cigarette Years Smoked: pt quit 15 years ago e-Cigarette/Vaping Use: Never Used Second Hand Smoke Exposure: No service: No Current occupational status: unemployed 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 Cognitive needs: No Hearing needs: No Vision needs: Yes (glasses) Review of Systems Const Reports daytime sleepiness, Reports headache(s), Reports snoring and Reports stops breathing during sleep Eyes Reports no additional complaints ENT Reports headache(s), Reports nasal congestion, Reports nasal discharge and Reports nasal obstruction Card Denies chest pain, Reports palpitations and Reports dyspnea on exertion Resp Reports cough, Reports dyspnea on exertion, Reports snoring and Denies wheezing GI Reports no additional complaints Musc Reports no additional complaints Skin/Breast Denies rash Neuro Reports headache(s) Endo Reports palpitations Aller/Immun Denies wheezing Physical Exam Vital Signs: Last Vital Signs Pulse 74 07/23/24 14:34 BP 128/70 07/23/24 14:34 Pulse Ox 96 07/23/24 14:34 Oxygen Delivery Method Room Air 07/23/24 14:34 BMI result Body Mass Index 34.7 Const General: comfortable HEENT Head: Yes normocephalic General nose exam: Abnormal mucous membranes and turbinates present erythematous Neck Neck: Yes supple Chest Chest palpation & inspection: normal inspection of the chest Resp Effort & Inspection: normal respiratory effort Auscultation: clear to auscultation bilaterally Cardio Heart sounds: S1 normal heart sound present and S2 normal heart sound present GI Palpation (GI): Soft to palpation Skin General skin exam: no rashes or lesions noted Extrem General: Yes no clubbing, cyanosis or edema Assessment & Plan Assessment & Plan (1) COPD (chronic obstructive pulmonary disease): Code(s): J44.9 - Chronic obstructive pulmonary disease, unspecified Category: Medical Qualifiers: COPD type: unspecified COPD Qualified Code(s): J44.9 - Chronic obstructive pulmonary disease, unspecified (2) Gqdbd-Ijyfytkpz-Caqzu (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 Category: Medical (3) DAV (obstructive sleep apnea): Code(s): G47.33 - Obstructive sleep apnea (adult) (pediatric) Category: Medical (4) Chronic allergic rhinitis: Code(s): J30.9 - Allergic rhinitis, unspecified Category: Medical Plan Continue Arnuity continue Incruse start APAP start Fluticasone, monitor for any bleeding continue singulair neilmed PM sinus rinse with distilled water F/U 3 months Medications: New fluticasone propionate 50 mcg/actuation 2 sprays intranasal DAILY 15.8 mL 11RF 30 days J31.0 - Chronic rhinitis Coding Level of Care Code Est Pt Level 4 (17433) Diagnoses Chronic obstructive pulmonary disease, unspecified COPD type J44.9 COPD type: unspecified COPD Uypkk-Wranqdslu-Oqqhv (WPW) pattern I45.6 DAV (obstructive sleep apnea) G47.33 Chronic allergic rhinitis J30.9 Time Spent (min) 17
== END 2024-07-23 15:01 | disposition home or self-care (01) ==
PROVIDERS: PCP Internal Medicine; Visit Provider Hospitalist
DX: J44.9 Chronic obstructive pulmonary disease, unspecified (principal); I45.6 Pre-excitation syndrome; G47.33 Obstructive sleep apnea (adult) (pediatric); J30.9 Allergic rhinitis, unspecified
CPT/HCPCS: 99214

== ENCOUNTER → 2024-07-23 14:29 | Outpatient (BNVA) | payer OTHER, SELFPAY | PROVIDERS: PCP Internal Medicine; Visit Provider Hospitalist | DX: J44.9 Chronic obstructive pulmonary disease, unspecified (principal); I45.6 Pre-excitation syndrome; G47.33 Obstructive sleep apnea (adult) (pediatric); J31.0 Chronic rhinitis | CPT/HCPCS: 99212 ==

== ENCOUNTER 2024-07-24 10:44 | Outpatient (REF) | payer OTHER, SELFPAY ==
--- NOTE | ~2024-07-24 | XR_ITS ---
EXAMINATION: XR CHEST CLINICAL INFORMATION: Obstructive sleep apnea COMPARISON: None available. TECHNIQUE: 2 views of the chest were obtained. FINDINGS: No consolidation, pleural effusion or pneumothorax. No hyperinflation. Cardiomediastinal silhouette is normal in size. Multilevel thoracic spondylosis, mild. XR/XR chest 2V IMPRESSION: No acute airspace disease. Electronically signed by: Ignacio Canales MD 08/07/2024 09:31 AM EST
[2024-07-24 12:22] LABS: Microalbum/Creatinine Ratio Ur 4.2 ug/mg cr (<30)
[2024-07-24 12:23] LABS: Alanine Aminotransferase 31 U/L (0-40); Albumin Level 4.4 g/dL (3.5-5.0); Alkaline Phosphatase 64 U/L (39-117); Anion Gap 9 (12-20); Aspartate Amino Transferase 34 U/L (5-37); Bilirubin Total 0.8 mg/dL (0.0-1.0); Blood Urea Nitrogen 14 mg/dL (9-16); Carbon Dioxide 31 mmol/L (22-29); Chloride 104 mmol/L (96-108); Cholesterol 140 mg/dL (<200); Estimated Glomerular Filt Rate > 60; Glucose Fasting 100 mg/dL (60-99); HDL Cholesterol 39 mg/dL (>40); LDL Cholesterol Calculated 79 mg/dL (<100); Potassium 3.4 mmol/L (3.3-5.1); Sodium 141 mmol/L (135-145); Total Protein 7.5 g/dL (6.5-8.0); Triglycerides 114 mg/dL (<150)
== END 2024-07-24 10:45 | disposition home or self-care (01) ==
LOC: HO.XRAY 10:44
PROVIDERS: Absent Provider Hospitalist; PCP Internal Medicine; Visit Provider Internal Medicine
DX: G47.33 Obstructive sleep apnea (adult) (pediatric) (principal)
CPT/HCPCS: 36415; 71046; 80053; 80061; 82043; 82570

== ENCOUNTER → 2024-07-24 11:15 | Outpatient (BNV) | payer OTHER, SELFPAY | PROVIDERS: Absent Provider Hospitalist; PCP Internal Medicine; Visit Provider Radiology Diagnostic Radiology | DX: G47.33 Obstructive sleep apnea (adult) (pediatric) (principal) | CPT/HCPCS: 71046 ==

== ENCOUNTER 2024-08-06 15:04 | Outpatient (AMB) | payer OTHER, SELFPAY ==
[2024-08-06 15:18] VITALS: BP 128/80; BMI 33.5
--- NOTE | 2024-08-06 15:18 | MHC.PC.OV ---
Vital Signs 08/06/24 15:18 Height 6 ft Weight 247 lb BMI 33.5 BP 128/80 Blood Pressure Location Lt brachial Position Sitting Intake Visit Reasons: 4 Month F/U Intake Note: Patient here for a 4 month follow up Sugar Grinder Required: No Accompanied by: Self / Same As Patient Allergies No Known Allergies Allergy (Verified 08/06/24 15:40) Medication List - Last Reconciled 08/06/24 by Jacquie Lagunas MD acetaminophen (Tylenol) 650 mg (2 x 325 mg) PO Q6H PRN albuterol sulfate 90 mcg/actuation (Ventolin HFA) 2 puffs inhalation Q4-6H PRN amlodipine (Norvasc) 5 mg PO DAILY aspirin 81 mg PO DAILY celecoxib (Celebrex) 200 mg PO DAILY PRN cholestyramine (with sugar) 4 gram 1 ea PO BID cyclobenzaprine 5 mg PO BEDTIME PRN 30 days divalproex (Depakote) 500 mg PO BID fluticasone furoate 100 mcg/actuation (Arnuity Ellipta) 1 inh inhalation DAILY 30 days fluticasone propionate 50 mcg/actuation 2 sprays intranasal DAILY 30 days levothyroxine (Synthroid) 50 mcg PO DAILY jnubek-bpagpfgn-tchgfvp 24,000-76,000 -120,000 unit (Creon) 2 caps PO BID 30 days losartan-hydrochlorothiazide 100-25 mg (Hyzaar) 1 tab PO DAILY melatonin 5 mg PO BEDTIME PRN metformin 500 mg PO DAILY metoprolol tartrate 50 mg PO BID 90 days montelukast (Singulair) 10 mg PO DAILY omeprazole 20 mg PO BID oxybutynin chloride 5 mg PO DAILY quetiapine 50 mg PO DAILY sertraline (Zoloft) 50 mg PO DAILY simvastatin 40 mg PO DAILY umeclidinium 62.5 mcg/actuation (Incruse Ellipta) 1 inh inhalation DAILY 30 days Tobacco use date assessed: 03/21/24 Dental Screening Dental Screen Date: 03/28/24 HPI HPI Comments History of Present Illness Details This is a 54 year old male with diabetes mellitus type 2, hypertension, hypothyroidism, hyperlipidemia, COPD and bipolar disorder that comes today for follow up on his conditions. A1c within goal. BP stable. Last TSH was normal. LDL close to goal. COPD follow by pulmonology. Bipolar disorder stable with medications and follow by psychiatry. [facility] Medical History Chronic allergic rhinitis Preoperative cardiovascular examination Pre-op examination Precordial chest pain Heart palpitations Nausea and vomiting RUQ abdominal tenderness Adult general medical exam Screening for colon cancer Bilateral hip pain Back pain Screening for prostate cancer Allergic rhinitis Bipolar disorder COPD (chronic obstructive pulmonary disease) Diabetes Surgical History H/O left knee surgery History of cholecystectomy History of esophagogastroduodenoscopy (EGD) History of colonoscopy Family History Father Prostate cancer Other Mental health disorder Substance use disorder Social History Housing: House Alcohol intake: former Patient Tobacco Use Status: Former Tobacco user Tobacco use type: Cigarette Years Smoked: pt quit 15 years ago e-Cigarette/Vaping Use: Never Used Second Hand Smoke Exposure: No service: No Current occupational status: unemployed 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 How often do you have six or more drinks on one occasion?: Never Total Score: 0 ISABEL-7 AMB Questionnaire ISABEL-7 Date ISABEL - 7 assessed: 11/02/23 Source: Developed by Drs. Song Snyder, Ashley Ashford, Papa Gilliam and colleagues, with an educational maryjo from [employer]. Review of Systems Const All systems reviewed & are unremarkable except as noted in HPI and below Card Denies chest pain at rest, Denies chest pain with activity, Denies edema, Denies irregular heart rhythm, Denies claudication, Denies dyspnea, Denies dyspnea on exertion, Denies orthopnea, Denies paroxysmal nocturnal dyspnea and Denies slow heart rate Resp Denies cough, Denies dyspnea and Denies dyspnea on exertion GI Denies abdominal pain, Denies change in bowel habits, Denies excessive flatus, Denies nausea and Denies vomiting Physical exam (Primary Care) Vital Signs: Last Vital Signs BP 128/80 08/06/24 15:18 BMI result Body Mass Index 33.5 BMI Assessment/Plan discussion: High BMI High, discussed plan: lifestyle, weight reduction, dietary and physical activity Tobacco/Smoking Status: Tobacco use Status Tobacco use date assessed 03/21/24 08/06/24 15:21 Patient Tobacco Use Status Former Tobacco user 08/06/24 15:21 Tobacco use type Cigarette 08/06/24 15:21 e-Cigarette/Vaping Use Never Used 08/06/24 15:21 Thrive Assessment: Date of Thrive Assessment Date Thrive assessed 11/02/23 08/06/24 15:21 Resp Effort & Inspection: normal respiratory effort Auscultation: clear to auscultation bilaterally Cardio Jugular venous distension: no JVD Rate: regular rate Rhythm: regular rhythm Heart sounds: S1 normal heart sound present and S2 normal heart sound present Extrem General: Yes full ROM Office Procedures Flu Questionnaire Does the patient have a severe egg allergy?: No Does the patient have severe life threatening allergies?: No Does the patient have a fever or illness today?: No Has the patient ever had Guillain-[place] Syndrome?: No Has the patient ever had any past reaction to a flu shot?: No Results AMB Hemoglobin A1c AMB Hemoglobin A1c 5.9 % Last Edit by EVENS Andre on 08/06/24 16:27 Immunizations Fluarix Triv [id number] (PF) 45 mcg (15 mcg x 3)/0.5 mL IM syringe Performing Provider: Jacquie Lagunas MD Performing Location: [facility] [place] [facility] Primary [facility] Administered by: TENISHA Rutherford on 08/06/24 15:27 Dose Route Admin Location Dispensed Lot Number Expiration Date [facility] Vehicle Maintenance Supervisor 0.5 mL IM Left Deltoid 0.5 mL [id number] 04/01/25 [id number] [employer] VIS Given Date VIS Provided VIS Publication Date 08/06/24 Single Vaccine 24 Eligibility Eligibility Date Funding Source Not [facility] Eligible 08/06/24 Private Results Reviewed Results Reviewed: Laboratory Last Values Hgb A1c (Clinic) 5.9 % (4.0-6.0) 08/06/24 16:25 Coding Level of Care Code Est Pt Level 4 (38557) Complex EM visit Add On G2211 Diagnoses Type 2 diabetes mellitus without complication, without long-term current use of insulin E11.9 Diabetes mellitus type: type 2 Diabetes mellitus group home insulin use: without group home use Diabetes mellitus complication status: without complication Chronic obstructive pulmonary disease, unspecified COPD type J44.9 COPD type: unspecified COPD Bipolar affective disorder, remission status unspecified F31.9 Active/Remission status: remission status unspecified Acquired hypothyroidism E03.9 Hypothyroidism type: acquired Primary hypertension I10 Hypertension type: primary hypertension Pure hypercholesterolemia E78.00 Hyperlipidemia type: pure hypercholesterolemia Time Spent (min) 22 Assessment & Plan Assessment & Plan (1) Diabetes: Code(s): E11.9 - Type 2 diabetes mellitus without complications Category: Medical Qualifiers: Diabetes mellitus type: type 2 Diabetes mellitus long term acute care registered nurse insulin use: without group home use Diabetes mellitus complication status: without complication Qualified Code(s): E11.9 - Type 2 diabetes mellitus without complications Plan: Continue metformin. A1c goal is equal or less than 7 %. (2) COPD (chronic obstructive pulmonary disease): Code(s): J44.9 - Chronic obstructive pulmonary disease, unspecified Category: Medical Qualifiers: COPD type: unspecified COPD Qualified Code(s): J44.9 - Chronic obstructive pulmonary disease, unspecified Plan: Continue long acting inhaler. Use rescue inhaler prn. Follow up with pulmonology. (3) Bipolar disorder: Code(s): F31.9 - Bipolar disorder, unspecified Category: Medical Qualifiers: Active/Remission status: remission status unspecified Qualified Code(s): F31.9 - Bipolar disorder, unspecified Plan: Continue divalproex. Follow with psychiatry. (4) Hypothyroidism: Code(s): E03.9 - Hypothyroidism, unspecified Category: Medical Qualifiers: Hypothyroidism type: acquired Qualified Code(s): E03.9 - Hypothyroidism, unspecified Plan: Continue levothyroxine. (5) Hypertension: Code(s): I10 - Essential (primary) hypertension Category: Medical Qualifiers: Hypertension type: primary hypertension Qualified Code(s): I10 - Essential (primary) hypertension Plan: Continue amlodipine. BP goal is equal or less than 130/80. (6) Hyperlipidemia: Code(s): E78.5 - Hyperlipidemia, unspecified Category: Medical Qualifiers: Hyperlipidemia type: pure hypercholesterolemia Qualified Code(s): E78.00 - Pure hypercholesterolemia, unspecified Plan: Continue statin. LDL goal is equal or less than 70. Orders: Orders Influenza [id number] Immunization Today Z23 - Encounter for immunization Comprehensive [place]. Panel Fast 4 Months E11.9 - Type 2 diabetes mellitus without complications Lipid Panel 4 Months E78.5 - Hyperlipidemia, unspecified Microalbumin, Random (w Creat) 4 Months R80.9 - Proteinuria, unspecified Thyroid Stimulating Hormone 4 Months E03.9 - Hypothyroidism, unspecified AMB Hemoglobin A1c Today E11.9 - Type 2 diabetes mellitus without complications
== END 2024-08-06 15:57 | disposition home or self-care (01) ==
LOC: HO.HMCH 15:05
PROVIDERS: PCP Internal Medicine; Visit Provider Internal Medicine
DX: E11.9 Type 2 diabetes mellitus without complications (principal); J44.9 Chronic obstructive pulmonary disease, unspecified; F31.9 Bipolar disorder, unspecified; E03.9 Hypothyroidism, unspecified; I10 Essential (primary) hypertension; E78.00 Pure hypercholesterolemia, unspecified; Z23 Encounter for immunization

== ENCOUNTER → 2024-08-06 15:04 | Outpatient (BNVA) | payer OTHER, SELFPAY | PROVIDERS: PCP Internal Medicine; Visit Provider Internal Medicine | DX: Z23 Encounter for immunization (principal); E11.9 Type 2 diabetes mellitus without complications; J44.9 Chronic obstructive pulmonary disease, unspecified; F31.9 Bipolar disorder, unspecified; E03.9 Hypothyroidism, unspecified; E78.00 Pure hypercholesterolemia, unspecified; I10 Essential (primary) hypertension | CPT/HCPCS: 83036; 90471; 90656; 99212 ==

== ENCOUNTER 2024-09-13 13:09 | Outpatient (AMB) | payer OTHER, SELFPAY ==
--- NOTE | 2024-09-13 13:13 | A.OFFVIS_ITS ---
Vital Signs 09/13/24 13:18 Height 6 ft Weight 247 lb BMI 33.5 Intake Visit Reasons: OV-Lt Knee 12/23/23 DR Intake Note: [place] is a 54 year old male who presents with complaints of left knee pain. He did undergo left knee arthroscopic surgery on 12/23/2023. He got mild relief from the procedure. The patient continues to go to formal physical therapy. He reports intermittent weakness in his left leg especially when ?squatting?. He has tried Tylenol and Celebrex which gave him only mild relief. He has had cortisone injections into his low back and left knee which gave him no relief. He has not had a viscosupplementation injection. He wishes to hold off on total knee replacement surgery for as long as possible. Business Account Manager Required: Yes Business Account Manager Language: Can Sealer Services: Business Account Manager Present Business Account Manager Name: EVENS Valdez/ANITA Information Interpreted: clinical only Allergies No Known Allergies Allergy (Verified 09/13/24 13:20) Medication List - Last Reconciled 09/13/24 by Bg Shahid MD acetaminophen (Tylenol) 650 mg (2 x 325 mg) PO Q6H PRN albuterol sulfate 90 mcg/actuation (Ventolin HFA) 2 puffs inhalation Q4-6H PRN amlodipine (Norvasc) 5 mg PO DAILY aspirin 81 mg PO DAILY celecoxib (Celebrex) 200 mg PO DAILY PRN cholestyramine (with sugar) 4 gram 1 ea PO BID cyclobenzaprine 5 mg PO BEDTIME PRN 30 days divalproex (Depakote) 500 mg PO BID fluticasone furoate 100 mcg/actuation (Arnuity Ellipta) 1 inh inhalation DAILY 30 days fluticasone propionate 50 mcg/actuation 2 sprays intranasal DAILY 30 days levothyroxine (Synthroid) 50 mcg PO DAILY rzyzmi-rxwchxto-wshjsna 24,000-76,000 -120,000 unit (Creon) 2 caps PO BID 30 days losartan-hydrochlorothiazide 100-25 mg (Hyzaar) 1 tab PO DAILY melatonin 5 mg PO BEDTIME PRN metformin 500 mg PO DAILY metoprolol tartrate 50 mg PO BID 90 days montelukast (Singulair) 10 mg PO DAILY omeprazole 20 mg PO BID oxybutynin chloride 5 mg PO DAILY quetiapine 50 mg PO DAILY sertraline (Zoloft) 50 mg PO DAILY simvastatin 40 mg PO DAILY umeclidinium 62.5 mcg/actuation (Incruse Ellipta) 1 inh inhalation DAILY 30 days PFS Medical History Chronic allergic rhinitis Preoperative cardiovascular examination Pre-op examination Precordial chest pain Heart palpitations Nausea and vomiting RUQ abdominal tenderness Adult general medical exam Screening for colon cancer Bilateral hip pain Back pain Screening for prostate cancer Allergic rhinitis Bipolar disorder COPD (chronic obstructive pulmonary disease) Diabetes Surgical History H/O left knee surgery History of cholecystectomy History of esophagogastroduodenoscopy (EGD) History of colonoscopy Family History Father Prostate cancer Other Mental health disorder Substance use disorder Social History Housing: House Alcohol intake: former Patient Tobacco Use Status: Former Tobacco user Tobacco use type: Cigarette Years Smoked: pt quit 15 years ago e-Cigarette/Vaping Use: Never Used Second Hand Smoke Exposure: No service: No Current occupational status: unemployed 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 Cognitive needs: No Hearing needs: No Vision needs: Yes (glasses) Physical Exam Vital Signs: BMI result Body Mass Index 33.5 Const Other: Well-nourished well-developed very friendly male awake alert and oriented x3 in no acute distress Extrem Other: Bilateral lower extremity examination shows good capillary refill, no skin lesions noted, normal sensation light touch Left knee examination shows that the surgical incisions are well healed, no erythema, palpable crepitus with range of motion, pain with range of motion, no instability Assessment & Plan Assessment & Plan (1) Osteoarthritis of left knee: Code(s): M17.12 - Unilateral primary osteoarthritis, left knee Category: Medical Plan Mr. Grayson presents with left knee pain due to osteoarthritis. I had a lengthy discussion with the patient regarding the treatment options. At this point he has failed the last 3 months of continued non operative treatments as well as left knee arthroscopic surgery. The non operative treatments have included formal physical therapy, Tylenol, Celebrex and cortisone injections. He wishes to hold off on total knee replacement surgery for as long as possible. At this point is left knee pain is interfering with his activities of daily living and his ability to sleep well through the night. Thus, I will see whether or not his insurance company will cover a viscosupplementation injection, such as Durolane. I will see him back once the injection is available. Feel free to call me at any time should questions regarding his orthopedic management arise. I spent 22 minutes in reviewing the patient's records and imaging studies, seeing the patient and documenting in the medical record. Medications: Refilled celecoxib (Celebrex) 200 mg PO DAILY PRN 30 caps 2RF pain Coding Level of Care Code Est Pt Level 3 (99579) Complex EM visit Add On G2211 Diagnoses Osteoarthritis of left knee M17.12
[2024-09-13 13:18] VITALS: BMI 33.5
== END 2024-09-13 13:37 | disposition home or self-care (01) ==
PROVIDERS: PCP Internal Medicine; Visit Provider Orthopaedic Surgery
DX: M17.12 Unilateral primary osteoarthritis, left knee (principal)
CPT/HCPCS: 99213; G2211

== ENCOUNTER → 2024-09-13 13:09 | Outpatient (BNVA) | payer OTHER, SELFPAY | PROVIDERS: PCP Internal Medicine; Visit Provider Orthopaedic Surgery | DX: M17.12 Unilateral primary osteoarthritis, left knee (principal) | CPT/HCPCS: 99212 ==

== ENCOUNTER 2024-09-21 14:06 | Outpatient (REF) | payer OTHER, SELFPAY ==
[2024-09-21 10:32] VITALS: PULSE 96; O2SAT 97
--- NOTE | 2024-09-21 14:08 | PFT_ITS ---
Flows: FEV1: 116 % of predicted at 4.61 L FVC: 115 % of predicted at 5.93 L FEV1/FVC: 78 % Bronchodilator response: Absent Volumes: Total lung capacity: 112 % of predicted at 8.67 L Residual volume: 122 % of predicted at 2.68 L Slow vital capacity: 107 % of predicted at 5.99 L Expiratory reserve volume: 53 % of predicted at 0.81 L Diffusion capacity: Normal Impression: No obstructive or restrictive ventilatory defect. No bronchodilator response. Increased residual volume suggests air trapping. MTDD
== END 2024-09-21 14:07 | disposition home or self-care (01) ==
LOC: HO.RESP 14:06
PROVIDERS: PCP Internal Medicine; Visit Provider Hospitalist
DX: J44.9 Chronic obstructive pulmonary disease, unspecified (principal); G47.33 Obstructive sleep apnea (adult) (pediatric); I45.6 Pre-excitation syndrome
CPT/HCPCS: 94010; 94640; 94727; 94729

== ENCOUNTER → 2024-09-21 14:08 | Outpatient (BNV) | payer OTHER, SELFPAY | PROVIDERS: PCP Internal Medicine; Visit Provider Internal Medicine Pulmonary Disease | DX: J44.9 Chronic obstructive pulmonary disease, unspecified (principal) | CPT/HCPCS: 94060; 94727; 94729 ==

== ENCOUNTER 2024-10-25 14:34 | Outpatient (AMB) | payer OTHER, SELFPAY ==
[2024-10-25 14:36] VITALS: BP 120/74; PULSE 65; O2SAT 96; BMI 36.3
--- NOTE | 2024-10-25 14:36 | MHC.OFFVIS ---
Vital Signs 10/25/24 14:36 Height 6 ft Weight 267 lb 13.786 oz BMI 36.3 BP 120/74 Blood Pressure Location Lt brachial Position Sitting Pulse 65 Pulse Source Pulse Oximeter Pulse Oximetry (%) 96 Oxygen Delivery Method Room Air Intake Visit Reasons: COPD/PFT Follow Up Allergies No Known Allergies Allergy (Verified 09/13/24 13:20) HPI Comments Details: The patient is a 54-year-old gentleman with known history of WPW presenting with worsening dyspnea on exertion. The patient has moderate degree of dyspnea on exertion. Apparently when going up a flight of stairs or an incline. Symptoms Seems to be progressively getting worse. Has not seen any Significant improvement. Currently he is awaiting a cardiac catheterization for a ablation I believe at [facility]. Hopefully this provides some relief. In the meantime the patient does have a remote smoking history. He quit about 15 years ago. Still has a cough. Nonproductive in nature. He was hoping that by now his symptoms from smoking would be resolved. No recent x-rays to review. No recent pulmonary function study. The patient also has significant daytime drowsiness. His Peconic score is elevated 10/24. He does have documented snoring and apnea. The patient needs to have a sleep study. In view of his cardiac history with cardiac arrhythmias I do believe that an in-lab sleep study we more beneficial. Will request a in-lab polysomnogram at this time. The patient will follow-up after his PFTs. Also request a chest x-ray in the sleep study and then will review them in the coming weeks. 07/23/2024 the patient is here for a pulmonary follow-up visit. He continues to have significant daytime drowsiness. His Peconic score is elevated /24. He did have a sleep study. It was a difficult sleep study because he could not fall asleep. However, did have significant sleep apnea even though it was a very limited study. Likely they severity of his sleep apnea prevents him from getting adequate sleep hygiene. Therefore this point will go ahead and request a CPAP to be started VIC. In addition to that the patient continues to have cough. He responded well to the inhaler therapy. He does complaint of nasal congestion. Feel like the Singulair is helping. Will start him on a nasal steroid spray. I did also encourage him to perform sinus rinses. Will follow-up in 3 months. The patient has any worsening symptoms he will call for an earlier assessment. 10/25/2024 the patient is here for a pulmonary follow-up visit. Overall the patient is doing well. He did have the pulmonary function studies demonstrated no obstructive nor restrictive ventilatory defects. Chest x-ray is also completely clear. We personally reviewed together. In addition to that the patient did start his CPAP. CPAP therapy has been affecting beneficial. He has been using more than 4 hours a night. After request access to the air view to review the results and also to adjust the machine further. But for now he is having increased shortness of breath having to use his rescue inhaler more often. Likely because the winter months. Will go ahead and make sure that he is using the Arnuity along with the Incruse on a daily basis and he can use his rescue inhaler as needed. Will follow-up in 6 months if any issues arise he will call for an earlier assessment. [facility] Medical History Chronic allergic rhinitis Preoperative cardiovascular examination Pre-op examination Precordial chest pain Heart palpitations Nausea and vomiting RUQ abdominal tenderness Adult general medical exam Screening for colon cancer Bilateral hip pain Back pain Screening for prostate cancer Allergic rhinitis Bipolar disorder COPD (chronic obstructive pulmonary disease) Diabetes Surgical History H/O left knee surgery History of cholecystectomy History of esophagogastroduodenoscopy (EGD) History of colonoscopy Family History Father Prostate cancer Other Mental health disorder Substance use disorder Social History Housing: House Alcohol intake: former Patient Tobacco Use Status: Former Tobacco user Tobacco use type: Cigarette Years Smoked: pt quit 15 years ago e-Cigarette/Vaping Use: Never Used Second Hand Smoke Exposure: No service: No Current occupational status: unemployed 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 Cognitive needs: No Hearing needs: No Vision needs: Yes (glasses) Review of Systems Const Denies daytime sleepiness, Denies headache(s), Denies snoring and Reports stops breathing during sleep Eyes Reports no additional complaints ENT Denies headache(s), Reports nasal congestion and Reports nasal discharge Card Denies chest pain, Reports palpitations and Reports dyspnea on exertion Resp Reports cough, Reports dyspnea on exertion, Denies snoring and Denies wheezing GI Reports no additional complaints Musc Reports no additional complaints Skin/Breast Denies rash Neuro Denies headache(s) Endo Reports palpitations Aller/Immun Denies wheezing Physical Exam Vital Signs: Last Vital Signs Pulse 65 10/25/24 14:36 BP 120/74 10/25/24 14:36 Pulse Ox 96 10/25/24 14:36 Oxygen Delivery Method Room Air 10/25/24 14:36 BMI result Body Mass Index 36.3 Const General: comfortable HEENT Head: Yes normocephalic General nose exam: Abnormal mucous membranes and turbinates present erythematous Neck Neck: Yes supple Chest Chest palpation & inspection: normal inspection of the chest Resp Effort & Inspection: normal respiratory effort Auscultation: clear to auscultation bilaterally Cardio Heart sounds: S1 normal heart sound present and S2 normal heart sound present GI Palpation (GI): Soft to palpation Skin General skin exam: no rashes or lesions noted Extrem General: Yes no clubbing, cyanosis or edema Assessment & Plan Assessment & Plan (1) COPD (chronic obstructive pulmonary disease): Code(s): J44.9 - Chronic obstructive pulmonary disease, unspecified Category: Medical Qualifiers: COPD type: unspecified COPD Qualified Code(s): J44.9 - Chronic obstructive pulmonary disease, unspecified (2) Qqzxh-Notaubfbt-Mxdov (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 Category: Medical (3) DAV (obstructive sleep apnea): Code(s): G47.33 - Obstructive sleep apnea (adult) (pediatric) Category: Medical (4) Chronic allergic rhinitis: Code(s): J30.9 - Allergic rhinitis, unspecified Category: Medical Plan Continue Arnuity continue Incruse continue APAP stop Fluticasone, monitor for any bleeding continue singulair neilmed PM sinus rinse with distilled water F/U 8-12 months Medications: Refilled fluticasone furoate 100 mcg/actuation (Arnuity Ellipta) 1 inh inhalation DAILY 30 ea 6RF 30 days Coding Level of Care Code Est Pt Level 4 (47705) Diagnoses Chronic obstructive pulmonary disease, unspecified COPD type J44.9 COPD type: unspecified COPD Ykmza-Idlcdfkoo-Gzmqz (WPW) pattern I45.6 DAV (obstructive sleep apnea) G47.33 Chronic allergic rhinitis J30.9 Time Spent (min) 16
== END 2024-10-25 14:52 | disposition home or self-care (01) ==
PROVIDERS: PCP Internal Medicine; Visit Provider Hospitalist
DX: J44.9 Chronic obstructive pulmonary disease, unspecified (principal); I45.6 Pre-excitation syndrome; G47.33 Obstructive sleep apnea (adult) (pediatric); J30.9 Allergic rhinitis, unspecified
CPT/HCPCS: 99214

== ENCOUNTER → 2024-10-25 14:34 | Outpatient (BNVA) | payer OTHER, SELFPAY | PROVIDERS: PCP Internal Medicine; Visit Provider Hospitalist | DX: J44.9 Chronic obstructive pulmonary disease, unspecified (principal); J30.9 Allergic rhinitis, unspecified; I45.6 Pre-excitation syndrome; G47.33 Obstructive sleep apnea (adult) (pediatric) | CPT/HCPCS: 99212 ==

== ENCOUNTER 2024-11-01 09:55 | Outpatient (AMB) | payer OTHER, SELFPAY ==
[2024-11-01 09:58] VITALS: BP 140/82; PULSE 83; TEMP 36.4; O2SAT 98; BMI 35.8
--- NOTE | 2024-11-01 09:58 | A.OFFPC_ITS ---
Vital Signs 11/01/24 09:58 Height 6 ft Weight 264 lb BMI 35.8 BP 140/82 H Blood Pressure Location Lt brachial Position Sitting Pulse 83 Pulse Source Pulse Oximeter Temp 97.5 F Temp Source Temporal Artery Scan Pulse Oximetry (%) 98 Oxygen Delivery Method Room Air Intake Visit Reasons: [facility] 10/22 Well Reactivator Operator Required: Yes Well Reactivator Operator Language: Tristanian Accompanied by: Self / Same As Patient Allergies No Known Allergies Allergy (Verified 11/06/24 06:01) Tobacco use date assessed: 11/01/24 Dental Screening Dental Screen Date: 11/01/24 Did you have a dental visit in the last 12 months?: Yes Did you have a dental problem in the last 6 months where you did not have access to dental care?: No Was dental information given to patient?: Patient has dentist HPI [facility] 10/22 HPI Details 54-year-old male presents to the office for a follow-up visit. Patient comes to the office alone. I am not able to a certain the medications he is taking. Patient appears slightly agitated because he is not getting the inhalers for asthma, in the way he wants it. He does not like medications to be substituted. Patient was insisting that he get the medications, the albuterol and the long-acting bronchodilators as prescribed. Reports no symptoms of shortness of breath or wheezing. Reports he is 'compliant' with all his medications. [facility] Medical History Chronic allergic rhinitis Preoperative cardiovascular examination Pre-op examination Precordial chest pain Heart palpitations Nausea and vomiting RUQ abdominal tenderness Adult general medical exam Screening for colon cancer Bilateral hip pain Back pain Screening for prostate cancer Allergic rhinitis Bipolar disorder COPD (chronic obstructive pulmonary disease) Diabetes Surgical History H/O left knee surgery History of cholecystectomy History of esophagogastroduodenoscopy (EGD) History of colonoscopy Family History Father Prostate cancer Other Mental health disorder Substance use disorder Social History Housing: House Alcohol intake: former Patient Tobacco Use Status: Former Tobacco user Tobacco use type: Cigarette Years Smoked: pt quit 15 years ago e-Cigarette/Vaping Use: Never Used Second Hand Smoke Exposure: No service: No Current occupational status: unemployed 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 1. Little interest or pleasure in doing things: not at all 2. Feeling down, depressed, or hopeless: not at all 3. Trouble falling or staying asleep, or sleeping too much: not at all 4. Feeling tired or having little energy: not at all 5. Poor appetite or overeating: not at all 6. Feeling bad about yourself - or that you are a failure or have let yourself or your family down: not at all 7. Trouble concentrating on things, such as reading the newspaper or watching television: not at all 8. Moving or speaking so slowly that other people could have noticed. Or the opposite - being so fidgety or restless that you have been moving around a lot more than usual: not at all 9. Thoughts that you would be better off or of hurting yourself in some way: not at all Total score: 0 Depression Screening Interpretation: Negative Depression Screening Done: Yes 21297 - PHQ-9 Billing: Yes Source: Developed by Drs. Song Snyder, Ashley Ashford, Papa Gilliam and colleagues, with an educational maryjo from [employer]. Thrive Questionnaire Date Thrive assessed: 11/01/24 What is your living situation today?: I have a place to live, but I am worried about losing it in the future Within the past 12 months, did the food you bought not last and you didn't have the money to get more?: Never true Within the past 12 months, did you worry whether your food would run out before you got money to buy more?: Never true Do you have trouble paying for medicines?: No Do you have trouble getting transportation to medical appointments?: No Do you have trouble paying your heating and electricity bill?: No Do you have trouble taking care of your child, family member or friend?: No Do you have trouble with day-to-day activities such as bathing, preparing meals, shopping, managing finances, etc.?: No Are you currently unemployed and looking for a job?: No Are you interested in more education?: No Please select the resources that you would like help with: None Currently or been in a relationship where the following occur: No concerns r eported THRIVE Score: 1 AUDIT C Alcohol Use Questionnaire (AUDIT-C) 1. How often do you have a drink containing alcohol?: Never 3. How often do you have six or more drinks on one occasion?: Never Total Score: 0 ISABEL-7 AMB Questionnaire ISABEL-7 Date ISABEL - 7 assessed: 11/01/24 Feeling nervous, anxious, or on edge: 3 = Nearly every day Not being able to stop or control worryin = Nearly every day Worrying too much about different things: 3 = Nearly every day Trouble relaxin = Nearly every day Being so restless that it is hard to sit still: 3 = Nearly every day Becoming easily annoyed or irritable: 3 = Nearly every day Feeling afraid as if something awful might happen: 3 = Nearly every day Total ISABEL-7 score (0-4 normal; 5-9 mild; 10-14 moderate; 15-21 severe): 21 Source: Developed by Drs. Song Snyder, Ashley Ashford, Papa Gilliam and colleagues, with an educational maryjo from [employer]. ISABEL-7 Assessment Billing ISABEL-7 Assessment Tool: ISABEL-7 Assessment 85004 Physical exam (Primary Care) Vital Signs: Last Vital Signs Temp 97.5 F 11/01/24 09:58 Pulse 83 11/01/24 09:58 BP 140/82 H 11/01/24 09:58 Pulse Ox 98 11/01/24 09:58 Oxygen Delivery Method Room Air 11/01/24 09:58 BMI result Body Mass Index 35.8 Tobacco/Smoking Status: Tobacco use Status Tobacco use date assessed 11/01/24 11/01/24 10:03 Patient Tobacco Use Status Former Tobacco user 11/01/24 10:03 Tobacco use type Cigarette 11/01/24 10:03 e-Cigarette/Vaping Use Never Used 11/01/24 10:03 PHQ-9: PHQ-9 Score PHQ-9: Total score 0 11/01/24 10:03 Depression Screening Interpretation: Negative Thrive Assessment: Date of Thrive Assessment Date Thrive assessed 11/01/24 11/01/24 10:03 Currently or been in a relationship where the following occur: No concerns reported Const General: cooperative and healthy appearing Nutritional Appearance: well nourished Orientation/consciousness: patient oriented x3 Limitations: no limitations HENMT Head: Yes normal to inspection Eyes General: appearance normal, both eyes and all related structures Neck Neck: Yes normal visual inspection Chest Chest palpation & inspection: normal palpation of entire chest wall Resp Effort & Inspection: normal respiratory effort Neuro General: patient oriented x3 Coding Level of Care Code Est Pt Level 3 (27598) Complex EM visit Add On G2211 Diagnoses Bipolar affective disorder, remission status unspecified F31.9 Active/Remission status: remission status unspecified Asthma J45.909 Additional Codes ISABEL-7 Assessment Billing - ISABEL-7 Assessment Tool: ISABEL-7 Assessment 61438 ([id number]) PHQ-9 - 46052 - PHQ-9 Billing: Yes ([id number]) Assessment & Plan Assessment & Plan (1) Bipolar disorder: Code(s): F31.9 - Bipolar disorder, unspecified Category: Medical Qualifiers: Active/Remission status: remission status unspecified Qualified Code(s): F31.9 - Bipolar disorder, unspecified Plan: Discussion about his asthma was making the patient agitated, I had to calm him down repeatedly. (2) Asthma: Code(s): J45.909 - Unspecified asthma, uncomplicated Category: Medical Plan: I tried to explain that I do not have control on the prescription his pharmacy fills. It is based on his insurance plan. Patient was getting increasingly agitated. I printed his prescriptions to him and he was satisfied that I was prescribing the meds he wanted. Left the room, when I returned to explain more. Medications: New albuterol sulfate 90 mcg/actuation 1 inh inhalation Q4-6H PRN 1 ea 0RF shortness of breath or wheezing Refilled umeclidinium 62.5 mcg/actuation (Incruse Ellipta) 1 inh inhalation DAILY 30 ea 11RF 30 days J45.909 - Unspecified asthma, uncomplicated fluticasone furoate 100 mcg/actuation (Arnuity Ellipta) 1 inh inhalation DAILY 30 ea 6RF 30 days Discontinued albuterol sulfate 90 mcg/actuation (Ventolin HFA) Discontinued Reason: Doctor's Order 2 puffs inhalation Q4-6H PRN 8.5 grams 2RF shortness of breath or wheezing J44.9 - Chronic obstructive pulmonary disease, unspecified, J45.909 - Unspecified asthma, uncomplicated
== END 2024-11-01 11:45 | disposition home or self-care (01) ==
PROVIDERS: PCP Internal Medicine; Visit Provider Internal Medicine
DX: F31.9 Bipolar disorder, unspecified (principal); J45.909 Unspecified asthma, uncomplicated

== ENCOUNTER → 2024-11-01 09:55 | Outpatient (BNVA) | payer OTHER, SELFPAY | PROVIDERS: PCP Internal Medicine; Visit Provider Internal Medicine | DX: F31.9 Bipolar disorder, unspecified (principal); J45.909 Unspecified asthma, uncomplicated | CPT/HCPCS: 96127; 99212 ==

== ENCOUNTER 2024-11-07 10:40 | Outpatient (REF) | payer OTHER, SELFPAY ==
[2024-11-07 11:28] LABS: Potassium 3.7 mmol/L (3.3-5.1)
[2024-11-07 12:08] LABS: Folate 12.5 ng/mL (> or = 4.0); Vitamin B12 871 pg/mL (200-900)
== END 2024-11-07 10:41 | disposition home or self-care (01) ==
LOC: HO.LAB 10:40
PROVIDERS: PCP Internal Medicine; Visit Provider Internal Medicine
DX: E53.8 Deficiency of other specified B group vitamins (principal); E87.6 Hypokalemia
CPT/HCPCS: 36415; 82607; 82746; 84132

== ENCOUNTER 2024-11-29 14:24 | Outpatient (AMB) | payer OTHER, SELFPAY ==
--- NOTE | 2024-11-29 14:33 | MHC.OFFVIS ---
Intake Visit Reasons: Left knee pain Intake Note: [place] is a 54 year old male who presents with complaints of progressively worsening left knee pain. The patient did undergo left knee arthroscopic surgery on 12/23/2023. He got only temporary relief from that procedure. He denies any locking or giving way. He has tried Tylenol and Celebrex which gave him mild relief. He would like to hold off on further surgery if at all possible. He has had cortisone injections in the past which gave him minimal relief. He has not had a viscosupplementation injection. today for his first dose of Euflexxa gel injection on his left knee. Rehabilitation Physician Required: Yes Rehabilitation Physician Language: Movement Assembler Services: Rehabilitation Physician Present Rehabilitation Physician Name: EVENS Valdez/ANITA Allergies No Known Allergies Allergy (Verified 11/06/24 06:01) Medication List - Last Reconciled 11/29/24 by Bg Shahid MD acetaminophen (Tylenol) 650 mg (2 x 325 mg) PO Q6H PRN albuterol sulfate 90 mcg/actuation 1 inh inhalation Q4-6H PRN amlodipine (Norvasc) 5 mg PO DAILY aspirin 81 mg PO DAILY cane As directed celecoxib (Celebrex) 200 mg PO DAILY PRN cholestyramine (with sugar) 4 gram 1 ea PO BID cyclobenzaprine 5 mg PO BEDTIME PRN 30 days divalproex (Depakote) 500 mg PO BID fluticasone furoate 100 mcg/actuation (Arnuity Ellipta) 1 inh inhalation DAILY 30 days fluticasone propionate 50 mcg/actuation 2 sprays intranasal DAILY 30 days levothyroxine (Synthroid) 50 mcg PO DAILY [id number] 24,000-76,000 -120,000 unit (Creon) 2 caps PO BID 30 days losartan-hydrochlorothiazide 100-25 mg (Hyzaar) 1 tab PO DAILY melatonin 5 mg PO BEDTIME PRN metformin 500 mg PO DAILY metoprolol tartrate 50 mg PO BID 90 days montelukast (Singulair) 10 mg PO DAILY omeprazole 20 mg PO BID oxybutynin chloride 5 mg PO DAILY quetiapine 50 mg PO DAILY sertraline (Zoloft) 50 mg PO DAILY simvastatin 40 mg PO DAILY umeclidinium 62.5 mcg/actuation (Incruse Ellipta) 1 inh inhalation DAILY 30 days [facility] Medical History Chronic allergic rhinitis Preoperative cardiovascular examination Pre-op examination Precordial chest pain Heart palpitations Nausea and vomiting RUQ abdominal tenderness Adult general medical exam Screening for colon cancer Bilateral hip pain Back pain Screening for prostate cancer Allergic rhinitis Bipolar disorder COPD (chronic obstructive pulmonary disease) Diabetes Surgical History H/O left knee surgery History of cholecystectomy History of esophagogastroduodenoscopy (EGD) History of colonoscopy Family History Father Prostate cancer Other Mental health disorder Substance use disorder Social History Housing: House Alcohol intake: former Patient Tobacco Use Status: Former Tobacco user Tobacco use type: Cigarette Years Smoked: pt quit 15 years ago e-Cigarette/Vaping Use: Never Used Second Hand Smoke Exposure: No service: No Current occupational status: unemployed 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 Cognitive needs: No Hearing needs: No Vision needs: Yes (glasses) Physical Exam Const Other: Well-nourished well-developed very friendly male awake alert and oriented x3 in no acute distress Extrem Other: Left knee examination shows that the surgical incisions are well healed, no erythema, palpable crepitus with range of motion, pain with range of motion, no instability Office Procedures AMB Joint Injection/Aspiration Joint Injection/Aspiration Primary Site: left knee Prep: site was prepped using aseptic technique Injected: 20 mg of (Euflexxa viscosupplementation) and 1% plain lidocaine Procedure: The patient tolerated the procedure well Coding 08730 - Large joint Procedure code (CPT) selection complete Assessment & Plan Assessment & Plan (1) Osteoarthritis of left knee: Code(s): M17.12 - Unilateral primary osteoarthritis, left knee Category: Medical (2) Left knee pain: Code(s): M25.562 - Pain in left knee Category: Medical Plan Mr. Grayson presents with left knee pain due to osteoarthritis. The risks and benefits of a series of Euflexxa viscosupplementation injections were discussed at length with the patient. The patient wished to proceed. He tolerated the 1st injection well. He will continue with his home exercise program. He will follow up next week as scheduled. Feel free to call me at any time should questions regarding his orthopedic management arise. I spent 20 minutes in reviewing the patient's records and imaging studies, seeing the patient and documenting in the medical record. Orders: Orders AMB Joint Injection/Aspiration Today M17.12 - Unilateral primary osteoarthritis, left knee Coding Level of Care Code Est Pt Level 3 (29548) Complex EM visit Add On G2211 Diagnoses Osteoarthritis of left knee M17.12 Left knee pain M25.562 CPT Codes Coding - 66950 Large joint: 72691 - Large joint ([id number])
== END 2024-11-29 14:55 | disposition home or self-care (01) ==
PROVIDERS: PCP Internal Medicine; Visit Provider Orthopaedic Surgery
DX: M17.12 Unilateral primary osteoarthritis, left knee (principal)
CPT/HCPCS: 20610; 99213

== ENCOUNTER → 2024-11-29 14:24 | Outpatient (BNVA) | payer OTHER, SELFPAY | PROVIDERS: PCP Internal Medicine; Visit Provider Orthopaedic Surgery | DX: M17.12 Unilateral primary osteoarthritis, left knee (principal); M25.562 Pain in left knee | CPT/HCPCS: 20610; 99212; J2003; J7323 ==

== ENCOUNTER 2024-12-06 14:22 | Outpatient (AMB) | payer OTHER, SELFPAY ==
--- NOTE | 2024-12-06 14:24 | MHC.OFFVIS ---
Vital Signs 12/06/24 14:25 Height 6 ft Weight 264 lb BMI 35.8 Intake Visit Reasons: Inj-Left Knee Euflexxa #2 Intake Note: [place] is a 54 year old male who presents today for his second dose of the Euflexxa gel injection on the left knee. He states that he got mild relief from the 1st injection. He continues with his home exercise program. Medical Transcriber Required: Yes Medical Transcriber Language: Tubular Stock Glass Bulb Machine Former Name: EVENS Valdez/ANITA Allergies No Known Allergies Allergy (Verified 12/06/24 14:25) Medication List - Last Reconciled 12/06/24 by Bg Shahid MD acetaminophen (Tylenol) 650 mg (2 x 325 mg) PO Q6H PRN albuterol sulfate 90 mcg/actuation 1 inh inhalation Q4-6H PRN amlodipine (Norvasc) 5 mg PO DAILY aspirin 81 mg PO DAILY cane As directed celecoxib (Celebrex) 200 mg PO DAILY PRN cholestyramine (with sugar) 4 gram 1 ea PO BID cyclobenzaprine 5 mg PO BEDTIME PRN 30 days divalproex (Depakote) 500 mg PO BID fluticasone furoate 100 mcg/actuation (Arnuity Ellipta) 1 inh inhalation DAILY 30 days fluticasone propionate 50 mcg/actuation 2 sprays intranasal DAILY 30 days levothyroxine (Synthroid) 50 mcg PO DAILY [id number] 24,000-76,000 -120,000 unit (Creon) 2 caps PO BID 30 days losartan-hydrochlorothiazide 100-25 mg (Hyzaar) 1 tab PO DAILY melatonin 5 mg PO BEDTIME PRN metformin 500 mg PO DAILY metoprolol tartrate 50 mg PO BID 90 days montelukast (Singulair) 10 mg PO DAILY omeprazole 20 mg PO BID oxybutynin chloride 5 mg PO DAILY quetiapine 50 mg PO DAILY sertraline (Zoloft) 50 mg PO DAILY simvastatin 40 mg PO DAILY umeclidinium 62.5 mcg/actuation (Incruse Ellipta) 1 inh inhalation DAILY 30 days [facility] Medical History Chronic allergic rhinitis Preoperative cardiovascular examination Pre-op examination Precordial chest pain Heart palpitations Nausea and vomiting RUQ abdominal tenderness Adult general medical exam Screening for colon cancer Bilateral hip pain Back pain Screening for prostate cancer Allergic rhinitis Bipolar disorder COPD (chronic obstructive pulmonary disease) Diabetes Surgical History H/O left knee surgery History of cholecystectomy History of esophagogastroduodenoscopy (EGD) History of colonoscopy Family History Father Prostate cancer Other Mental health disorder Substance use disorder Social History Housing: House Alcohol intake: former Patient Tobacco Use Status: Former Tobacco user Tobacco use type: Cigarette Years Smoked: pt quit 15 years ago e-Cigarette/Vaping Use: Never Used Second Hand Smoke Exposure: No service: No Current occupational status: unemployed 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 Cognitive needs: No Hearing needs: No Vision needs: Yes (glasses) Physical Exam Vital Signs: BMI result Body Mass Index 35.8 Const Other: Well-nourished well-developed very friendly male awake alert and oriented x3 in no acute distress Extrem Other: Left knee examination shows a minimal effusion, palpable crepitus with range of motion, pain with range of motion, no instability Office Procedures AMB Joint Injection/Aspiration Joint Injection/Aspiration Primary Site: left knee Prep: site was prepped using aseptic technique Injected: 20 mg of (Euflexxa viscosupplementation) and 1% plain lidocaine Procedure: The patient tolerated the procedure well Coding 70629 - Large joint Procedure code (CPT) selection complete Results Reviewed Results Reviewed: X-rays of the patient's left knee taken previously show joint space narrowing, subchondral sclerosis, no acute bony abnormalities Assessment & Plan Assessment & Plan (1) Osteoarthritis of left knee: Code(s): M17.12 - Unilateral primary osteoarthritis, left knee Category: Medical Plan Mr. Grayson presents with left knee pain due to osteoarthritis. The risks and benefits of a 2nd Euflexxa viscosupplementation injection were discussed at length with the patient. The patient wished to proceed. He tolerated the injection well. He will continue with his home exercise program. He will follow up next week as scheduled. Feel free to call me at any time should questions regarding his orthopedic management arise. Orders: Orders AMB Joint Injection/Aspiration Today M17.12 - Unilateral primary osteoarthritis, left knee Medications: Refilled celecoxib (Celebrex) 200 mg PO DAILY PRN 30 caps 2RF pain Coding Level of Care Code Procedure Only Diagnoses Osteoarthritis of left knee M17.12 CPT Codes Coding - 00779 Large joint: 94487 - Large joint ([id number])
[2024-12-06 14:25] VITALS: BMI 35.8
== END 2024-12-06 14:47 | disposition home or self-care (01) ==
PROVIDERS: PCP Internal Medicine; Visit Provider Orthopaedic Surgery
DX: M17.12 Unilateral primary osteoarthritis, left knee (principal)
CPT/HCPCS: 20610

== ENCOUNTER → 2024-12-06 14:22 | Outpatient (BNVA) | payer OTHER, SELFPAY | PROVIDERS: PCP Internal Medicine; Visit Provider Orthopaedic Surgery | DX: M17.12 Unilateral primary osteoarthritis, left knee (principal) | CPT/HCPCS: 20610; J2003; J7323 ==

== ENCOUNTER 2024-12-13 14:38 | Outpatient (AMB) | payer OTHER, SELFPAY ==
[2024-12-13 14:42] VITALS: BMI 35.8
--- NOTE | 2024-12-13 14:42 | MHC.OFFVIS ---
Vital Signs 12/13/24 14:42 Height 6 ft Weight 264 lb BMI 35.8 Intake Visit Reasons: Inj-Left Knee Euflexxa #3 Intake Note: [place] is a 54 year old male who presents today for a third dose of the Euflexxa gel injection on the left knee. The patient states that he has gotten mild relief from the 1st 2 injections. He denies any fevers or chills. Tongue And Groove Machine Operator Required: Yes Tongue And Groove Machine Operator Language: Jewellery Designer Name: DavidEVENS raya/ANITA Allergies No Known Allergies Allergy (Verified 12/13/24 14:42) Medication List - Last Reconciled 12/14/24 by Bg Shahid MD acetaminophen (Tylenol) 650 mg (2 x 325 mg) PO Q6H PRN albuterol sulfate 90 mcg/actuation 1 inh inhalation Q4-6H PRN amlodipine (Norvasc) 5 mg PO DAILY aspirin 81 mg PO DAILY cane As directed celecoxib (Celebrex) 200 mg PO DAILY PRN cholestyramine (with sugar) 4 gram 1 ea PO BID cyclobenzaprine 5 mg PO BEDTIME PRN 30 days divalproex (Depakote) 500 mg PO BID fluticasone furoate 100 mcg/actuation (Arnuity Ellipta) 1 inh inhalation DAILY 30 days fluticasone propionate 50 mcg/actuation 2 sprays intranasal DAILY 30 days levothyroxine (Synthroid) 50 mcg PO DAILY [id number] 24,000-76,000 -120,000 unit (Creon) 2 caps PO BID 30 days losartan-hydrochlorothiazide 100-25 mg (Hyzaar) 1 tab PO DAILY melatonin 5 mg PO BEDTIME PRN metformin 500 mg PO DAILY metoprolol tartrate 50 mg PO BID 90 days montelukast (Singulair) 10 mg PO DAILY omeprazole 20 mg PO BID oxybutynin chloride 5 mg PO DAILY quetiapine 50 mg PO DAILY sertraline (Zoloft) 50 mg PO DAILY simvastatin 40 mg PO DAILY umeclidinium 62.5 mcg/actuation (Incruse Ellipta) 1 inh inhalation DAILY 30 days [facility] Medical History Chronic allergic rhinitis Preoperative cardiovascular examination Pre-op examination Precordial chest pain Heart palpitations Nausea and vomiting RUQ abdominal tenderness Adult general medical exam Screening for colon cancer Bilateral hip pain Back pain Screening for prostate cancer Allergic rhinitis Bipolar disorder COPD (chronic obstructive pulmonary disease) Diabetes Surgical History H/O left knee surgery History of cholecystectomy History of esophagogastroduodenoscopy (EGD) History of colonoscopy Family History Father Prostate cancer Other Mental health disorder Substance use disorder Social History Housing: House Alcohol intake: former Patient Tobacco Use Status: Former Tobacco user Tobacco use type: Cigarette Years Smoked: pt quit 15 years ago e-Cigarette/Vaping Use: Never Used Second Hand Smoke Exposure: No service: No Current occupational status: unemployed 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 Cognitive needs: No Hearing needs: No Vision needs: Yes (glasses) Physical Exam Vital Signs: BMI result Body Mass Index 35.8 Extrem Other: Left knee examination shows a minimal effusion, palpable crepitus with range of motion, pain with range of motion, no instability Office Procedures AMB Joint Injection/Aspiration Joint Injection/Aspiration Primary Site: left knee Prep: site was prepped using aseptic technique Injected: 20 mg of (Euflexxa viscosupplementation) and 1% plain lidocaine Procedure: The patient tolerated the procedure well Coding 35300 - Large joint Procedure code (CPT) selection complete Results Reviewed Results Reviewed: X-rays of the patient's left knee taken previously show joint space narrowing, subchondral sclerosis, no acute bony abnormalities Assessment & Plan Assessment & Plan (1) Osteoarthritis of left knee: Code(s): M17.12 - Unilateral primary osteoarthritis, left knee Category: Medical Plan Mr. Grayson presents with left knee pain due to osteoarthritis. The risks and benefits of a 3rd Euflexxa injection were discussed at length with the patient. The patient wished to proceed. He tolerated the injection well. He will continue with his home exercise program. He will contact me prior to his follow-up appointment in 3 months should any questions or concerns arise. Feel free to call me at any time should questions regarding his orthopedic management arise. Orders: Orders AMB Joint Injection/Aspiration 12/13/24 M17.12 - Unilateral primary osteoarthritis, left knee Coding Level of Care Code Procedure Only Diagnoses Osteoarthritis of left knee M17.12 CPT Codes Coding - 32480 Large joint: 83408 - Large joint ([id number])
== END 2024-12-13 14:56 | disposition home or self-care (01) ==
LOC: HO.HOS 14:39
PROVIDERS: PCP Internal Medicine; Visit Provider Orthopaedic Surgery
DX: M17.12 Unilateral primary osteoarthritis, left knee (principal)
CPT/HCPCS: 20610

== ENCOUNTER → 2024-12-13 14:38 | Outpatient (BNVA) | payer OTHER, SELFPAY | PROVIDERS: PCP Internal Medicine; Visit Provider Orthopaedic Surgery | DX: M17.12 Unilateral primary osteoarthritis, left knee (principal) | CPT/HCPCS: 20610; J2003; J7323 ==

== ENCOUNTER 2024-12-18 09:45 | Outpatient (REF) | payer OTHER, SELFPAY ==
[2024-12-18 11:08] LABS: Alanine Aminotransferase 33 U/L (0-40); Albumin Level 4.1 g/dL (3.5-5.0); Alkaline Phosphatase 58 U/L (39-117); Anion Gap 14 (12-20); Aspartate Amino Transferase 20 U/L (5-37); Bilirubin Total 0.5 mg/dL (0.0-1.0); Blood Urea Nitrogen 12 mg/dL (9-16); Carbon Dioxide 25 mmol/L (22-29); Chloride 103 mmol/L (96-108); Cholesterol 128 mg/dL (<200); Estimated Glomerular Filt Rate > 60; Glucose Fasting 92 mg/dL (60-99); HDL Cholesterol 42 mg/dL (>40); LDL Cholesterol Calculated 66 mg/dL (<100); Potassium 3.7 mmol/L (3.3-5.1); Sodium 138 mmol/L (135-145); Total Protein 7.5 g/dL (6.5-8.0); Triglycerides 103 mg/dL (<150)
[2024-12-18 11:23] LABS: Thyroid Stimulating Hormone 1.95 uIU/mL (0.32-4.0)
[2024-12-18 12:01] LABS: Creatinine Urine 72.35 mg/dL; Microalbumin Urine < 5.0 mg/L
[2024-12-21 04:54] LABS: Intrinsic Factor Antibodies Negative (Negative)
[2024-12-21 20:13] LABS: Parietal Cell Antibody <=20.0 Unit (<=20.0)
== END 2024-12-18 09:46 | disposition home or self-care (01) ==
LOC: HO.LAB 09:45
PROVIDERS: PCP Internal Medicine; Visit Provider Internal Medicine
DX: E53.8 Deficiency of other specified B group vitamins (principal); E03.9 Hypothyroidism, unspecified; E11.9 Type 2 diabetes mellitus without complications; E78.5 Hyperlipidemia, unspecified; R80.9 Proteinuria, unspecified
CPT/HCPCS: 36415; 80053; 80061; 82570; 83516; 84443; 86340

== ENCOUNTER 2024-12-25 13:36 | Outpatient (AMB) | payer OTHER, SELFPAY ==
--- NOTE | 2024-12-25 13:50 | MHC.PC.OV ---
Vital Signs 12/25/24 13:51 Height 6 ft Weight 263 lb BMI 35.7 BP 134/80 Blood Pressure Location Lt brachial Position Sitting Intake Visit Reasons: bp,dm Intake Note: Patient here for a follow up dm, bp Mover Required: No Accompanied by: Self / Same As Patient Allergies No Known Allergies Allergy (Verified 12/25/24 14:05) Medication List - Last Reconciled 12/25/24 by Jacquie Lagunas MD acetaminophen (Tylenol) 650 mg (2 x 325 mg) PO Q6H PRN albuterol sulfate 90 mcg/actuation 1 inh inhalation Q4-6H PRN amlodipine (Norvasc) 5 mg PO DAILY aspirin 81 mg PO DAILY cane As directed celecoxib (Celebrex) 200 mg PO DAILY PRN cholestyramine (with sugar) 4 gram 1 ea PO BID cyclobenzaprine 5 mg PO BEDTIME PRN 30 days divalproex (Depakote) 500 mg PO BID fluticasone furoate 100 mcg/actuation (Arnuity Ellipta) 1 inh inhalation DAILY 30 days fluticasone propionate 50 mcg/actuation 2 sprays intranasal DAILY 30 days haloperidol mg PO hydroxyzine pamoate 25 mg PO DAILY PRN levothyroxine (Synthroid) 50 mcg PO DAILY [id number] 24,000-76,000 -120,000 unit (Creon) 2 caps PO BID 30 days losartan-hydrochlorothiazide 100-25 mg (Hyzaar) 1 tab PO DAILY melatonin 5 mg PO BEDTIME PRN metformin 500 mg PO DAILY metoprolol tartrate 50 mg PO BID 90 days montelukast (Singulair) 10 mg PO DAILY omeprazole 20 mg PO BID oxybutynin chloride 5 mg PO DAILY prazosin 2 mg PO BID quetiapine 50 mg PO DAILY sertraline mg PO simvastatin 40 mg PO DAILY umeclidinium 62.5 mcg/actuation (Incruse Ellipta) 1 inh inhalation DAILY 30 days ziprasidone HCl mg PO Tobacco use date assessed: 11/01/24 Dental Screening Dental Screen Date: 11/01/24 HPI HPI Comments History of Present Illness Details The patient is a 54-year-old male presenting with a follow-up visit for chronic disease management focusing on conditions such as type 2 diabetes, hypertension, hyperlipidemia, and respiratory issues including COPD. The patient reports his diabetes as well-managed with an A1c of 5.9, reflecting controlled blood glucose levels. His hypertension and hyperlipidemia are similarly managed with ongoing medications and lifestyle modifications, including limiting sugars. Previous history reveals a cessation from tobacco usage and alcohol abuse, wherein he maintains current abstinence. The patient has respiratory conditions managed with powder and spray inhalers, though he prefers the spray form citing better symptomatic relief. He notes difficulty breathing during prolonged physical activities demonstrating potential inadequate COPD and asthma control. During psychiatric evaluations, he takes medications including ziprasidone and hydroxyzine with a reported history of bipolar disorder, depression, and anxiety. Additionally, he has been diagnosed with hypothyroidism treated with levothyroxine. Obesity is noted with a BMI of 35, suggesting Class 2 obesity. The patient has made dietary changes but acknowledges further developments in physical activity and restraint especially in reducing soda intake. Past medical history also highlights a colonic polyp discovery during a colonoscopy last year, which was non-malignant, and scheduled laboratory tests have indicated normal thyroid function. [facility] Medical History Chronic allergic rhinitis Preoperative cardiovascular examination Pre-op examination Precordial chest pain Heart palpitations Nausea and vomiting RUQ abdominal tenderness Adult general medical exam Screening for colon cancer Bilateral hip pain Back pain Screening for prostate cancer Allergic rhinitis Bipolar disorder COPD (chronic obstructive pulmonary disease) Diabetes Surgical History H/O left knee surgery History of cholecystectomy History of esophagogastroduodenoscopy (EGD) History of colonoscopy Family History Father Prostate cancer Other Mental health disorder Substance use disorder Social History Housing: House Alcohol intake: former Patient Tobacco Use Status: Former Tobacco user Tobacco use type: Cigarette Years Smoked: pt quit 15 years ago e-Cigarette/Vaping Use: Never Used Second Hand Smoke Exposure: No service: No Current occupational status: unemployed 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 Cognitive needs: No Hearing needs: No Vision needs: Yes (glasses) Questionnaire Thrive Questionnaire Date Thrive assessed: 11/01/24 ISABEL-7 AMB Questionnaire ISABEL-7 Date ISABEL - 7 assessed: 11/01/24 Source: Developed by Drs. Song Snyder, Ashley Ashford, Papa Gilliam and colleagues, with an educational maryjo from [employer]. Review of Systems Const All systems reviewed & are unremarkable except as noted in HPI and below Card Denies chest pain at rest, Denies chest pain with activity, Denies edema, Denies irregular heart rhythm, Denies claudication, Denies dyspnea, Denies dyspnea on exertion, Denies orthopnea, Denies paroxysmal nocturnal dyspnea and Denies slow heart rate Resp Denies cough, Denies dyspnea and Denies dyspnea on exertion Physical exam (Primary Care) Vital Signs: Last Vital Signs BP 134/80 12/25/24 13:51 BMI result Body Mass Index 35.7 BMI Assessment/Plan discussion: High BMI High, discussed plan: lifestyle, weight reduction, dietary and physical activity Tobacco/Smoking Status: Tobacco use Status Tobacco use date assessed 11/01/24 12/25/24 13:58 Patient Tobacco Use Status Former Tobacco user 12/25/24 13:58 Tobacco use type Cigarette 12/25/24 13:58 e-Cigarette/Vaping Use Never Used 12/25/24 13:58 Thrive Assessment: Date of Thrive Assessment Date Thrive assessed 11/01/24 12/25/24 13:58 Resp Effort & Inspection: normal respiratory effort Auscultation: clear to auscultation bilaterally Cardio Jugular venous distension: no JVD Rate: regular rate Rhythm: regular rhythm Heart sounds: S1 normal heart sound present and S2 normal heart sound present Extrem General: Yes full ROM Results AMB Hemoglobin A1c AMB Hemoglobin A1c 5.9 % Last Edit by EVENS Andre on 12/25/24 14:03 Results Reviewed Results Reviewed: Laboratory Last Values Hgb A1c (Clinic) 5.9 % (4.0-6.0) 12/25/24 13:50 Coding Level of Care Code Est Pt Level 4 (87881) Complex EM visit Add On G2211 Diagnoses Chronic obstructive pulmonary disease, unspecified COPD type J44.9 COPD type: unspecified COPD Type 2 diabetes mellitus without complication, without long-term current use of insulin E11.9 Diabetes mellitus type: type 2 Diabetes mellitus senior care insulin use: without senior care use Diabetes mellitus complication status: without complication Bipolar affective disorder, remission status unspecified F31.9 Active/Remission status: remission status unspecified Acquired hypothyroidism E03.9 Hypothyroidism type: acquired Primary hypertension I10 Hypertension type: primary hypertension GERD (gastroesophageal reflux disease) K21.9 Time Spent (min) 23 Assessment & Plan Assessment & Plan (1) COPD (chronic obstructive pulmonary disease): Code(s): J44.9 - Chronic obstructive pulmonary disease, unspecified Category: Medical Qualifiers: COPD type: unspecified COPD Qualified Code(s): J44.9 - Chronic obstructive pulmonary disease, unspecified (2) Diabetes: Code(s): E11.9 - Type 2 diabetes mellitus without complications Category: Medical Qualifiers: Diabetes mellitus type: type 2 Diabetes mellitus exterminator insulin use: without exterminator use Diabetes mellitus complication status: without complication Qualified Code(s): E11.9 - Type 2 diabetes mellitus without complications (3) Bipolar disorder: Code(s): F31.9 - Bipolar disorder, unspecified Category: Medical Qualifiers: Active/Remission status: remission status unspecified Qualified Code(s): F31.9 - Bipolar disorder, unspecified (4) Hypothyroidism: Code(s): E03.9 - Hypothyroidism, unspecified Category: Medical Qualifiers: Hypothyroidism type: acquired Qualified Code(s): E03.9 - Hypothyroidism, unspecified (5) Hypertension: Code(s): I10 - Essential (primary) hypertension Category: Medical Qualifiers: Hypertension type: primary hypertension Qualified Code(s): I10 - Essential (primary) hypertension (6) GERD (gastroesophageal reflux disease): Code(s): K21.9 - Gastro-esophageal reflux disease without esophagitis Category: Medical Plan The patient's chronic conditions are effectively managed with ongoing pharmaceutical therapy and lifestyle adjustments. Ventolin has been prescribed as a backup inhaler for asthma/COPD exacerbations. Advised the maintenance of current psychiatric medications under psychiatric supervision. Laboratory tests will be repeated in four months to monitor diabetes, cholesterol, and thyroid status. Ventolin remains available as a supplementary intervention, complemented by scheduled preventatives to circumvent exacerbations. Lifestyle modifications targeting obesity through dietary vigilance and physical exertion improvement were emphasized. Continued regular assessments for COPD and asthma efficacy through symptomatic feedback and functional capacity are essential. Patient was informed and verbally consented to the use of an ambient scribe for clinic note documentation during this visit. I emphasized the importance of maintaining diabetic management, given the current excellent A1c level. Reinforced existing asthma/COPD treatment, adding Ventolin for acute instances while keeping daily preventive measures in place. The potential advantages and drawbacks of periodical thyroid monitoring and redesign of respiratory therapy components were deliberated. Managing obesity by prioritizing soda abstinence alongside iterative physical work was championed, ensuring agreeable progression with BMI indexes. Broader psychiatric condition treatment re-evaluation could be warranted at the patient's discretion and in conjunction with continued psychiatric support. Scheduled follow-up laboratorial assessments in four months to verify metabolic and pharmacological status quo. Future alerts were designated for any emergent respiratory complications or diabetic fluctuations. Orders: Orders Lipid Panel 4 Months E78.5 - Hyperlipidemia, unspecified Microalbumin, Random (w Creat) 4 Months R80.9 - Proteinuria, unspecified AMB Hemoglobin A1c Today E11.9 - Type 2 diabetes mellitus without complications Vitamin D 25-OH Total 4 Months E55.9 - Vitamin D deficiency, unspecified Comprehensive [place]. Panel Fast 4 Months M17.12 - Unilateral primary osteoarthritis, left knee Thyroid Stimulating Hormone 4 Months E03.9 - Hypothyroidism, unspecified Medications: Refilled amlodipine (Norvasc) 5 mg PO DAILY 90 tabs 0RF I10 - Essential (primary) hypertension omeprazole 20 mg PO BID 180 caps 0RF K21.9 - Gastro-esophageal reflux disease without esophagitis simvastatin 40 mg PO DAILY 90 tabs 0RF E78.5 - Hyperlipidemia, unspecified albuterol sulfate 90 mcg/actuation 1 inh inhalation Q4-6H PRN 1 ea 0RF shortness of breath or wheezing fluticasone furoate 100 mcg/actuation (Arnuity Ellipta) 1 inh inhalation DAILY 30 ea 6RF 30 days umeclidinium 62.5 mcg/actuation (Incruse Ellipta) 1 inh inhalation DAILY 30 ea 11RF 30 days J45.909 - Unspecified asthma, uncomplicated aspirin 81 mg PO DAILY 90 tabs 1RF I10 - Essential (primary) hypertension cyclobenzaprine 5 mg PO BEDTIME PRN 30 tabs 0RF muscle spasm 30 days M54.9 - Dorsalgia, unspecified fluticasone propionate 50 mcg/actuation 2 sprays intranasal DAILY 15.8 mL 11RF 30 days J31.0 - Chronic rhinitis levothyroxine (Synthroid) 50 mcg PO DAILY 90 tabs 0RF E03.9 - Hypothyroidism, unspecified losartan-hydrochlorothiazide 100-25 mg (Hyzaar) 1 tab PO DAILY 90 tabs 1RF I10 - Essential (primary) hypertension metformin 500 mg PO DAILY 90 tabs 1RF E11.9 - Type 2 diabetes mellitus without complications metoprolol tartrate STOP METOPROLOL SUCCINATE (ONCE A DAY) AND START THIS TWICE A DAY 50 mg PO BID 180 tabs 3RF 90 days montelukast (Singulair) 10 mg PO DAILY 90 tabs 0RF J30.9 - Allergic rhinitis, unspecified, J45.909 - Unspecified asthma, uncomplicated oxybutynin chloride 5 mg PO DAILY 90 tabs 0RF N40.0 - Benign prostatic hyperplasia without lower urinary tract symptoms [id number] 24,000-76,000 -120,000 unit (Creon) administer with meals and/or snacks 2 caps PO BID 120 caps 6RF 30 days K58.9 - Irritable bowel syndrome, unspecified Patient Instructions: - Continue current medications as prescribed. - Use Ventolin (Albuterol) inhaler as needed for shortness of breath. - Maintain a diet low in sugars and high in nutritional value. - Increase physical activity gradually, aiming for daily incremental activity as respiratory status permits. - Attend follow-up appointment in four months for lab work re-evaluation. - Reach out if experiencing unmanageable shortness of breath or changes in usual symptoms.
[2024-12-25 13:51] VITALS: BP 134/80; BMI 35.7
== END 2024-12-25 14:41 | disposition home or self-care (01) ==
LOC: HO.HMCH 13:37
PROVIDERS: PCP Internal Medicine; Visit Provider Internal Medicine
DX: J44.9 Chronic obstructive pulmonary disease, unspecified (principal); E11.9 Type 2 diabetes mellitus without complications; F31.9 Bipolar disorder, unspecified; E03.9 Hypothyroidism, unspecified; I10 Essential (primary) hypertension; K21.9 Gastro-esophageal reflux disease without esophagitis

== ENCOUNTER → 2024-12-25 13:36 | Outpatient (BNVA) | payer OTHER, SELFPAY | PROVIDERS: PCP Internal Medicine; Visit Provider Internal Medicine | DX: J44.9 Chronic obstructive pulmonary disease, unspecified (principal); E11.9 Type 2 diabetes mellitus without complications; F31.9 Bipolar disorder, unspecified; I10 Essential (primary) hypertension; K21.9 Gastro-esophageal reflux disease without esophagitis | CPT/HCPCS: 83036; 99212 ==

== ENCOUNTER 2025-01-03 12:49 | Outpatient (AMB) | payer OTHER, SELFPAY ==
[2025-01-03 12:54] VITALS: BP 126/68; PULSE 61; BMI 36.2
--- NOTE | 2025-01-03 12:54 | A.OFFVIS_ITS ---
Vital Signs 01/03/25 12:54 Height 6 ft Weight 266 lb 12.149 oz BMI 36.2 BP 126/68 Blood Pressure Location Lt brachial Position Sitting Pulse 61 Intake Visit Reasons: 6 month follow up GERD R/S from 10/19/24 Intake Note: [place] presents in 6 months follow up of GERD. CC: Patient reports that sometimes even after he eats, he can hear sounds from his stomach. Denies having any other GI symptoms. 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 The procedure was well tolerated. The results were explained and the patient is agreeable to the follow-up interval as stated. The bowel pattern has returned to normal. Education was provided to tell any 1st degree relatives about their findings to be sure that they are screened by age 45. Educated that they will be put on a recall list when it is time for their repeat scope but should they move out of state or away from the hospital they will need to remember along with their primary to repeat the procedure in a timely fashion to avoid any adverse complications. Since he had active esophagitis will increase his o2o to 20mg bid from qd. He also continues on his cholestyramine and Creon with control of his post cholecystectomy syndrome which could be contributing somewhat to his esophagitis via the bile component. ROV 6 mos. Medications: Changed From omeprazole 20 mg PO DAILY 90 caps 0RF K21.9 - Gastro-esophageal reflux disease without esophagitis To omeprazole 20 mg PO BID 180 caps 0RF K21.9 - Gastro-esophageal reflux disease without esophagitis Refilled [id number] 24,000-76,000 -120,000 unit (Creon) administer with meals and/or snacks 2 caps PO BID 120 caps 6RF 30 days K58.9 - Irritable bowel syndrome without diarrhea TODAY'S VISIT [place] #Jacquie Live He continues on the creon and the omeprazole 20mg bid. I had added cholestyramine to see if bile acid was a part of his ongoing esophagitis. However, if he takes it bid he has nausea and looser stools, so we will decrease to qd. He is having a subjective feeling of bloating. He asks if that is my fatty liver. I educate him that the liver dose not cause this, (LFT's have actually improved over last year) but he also reports borborigus so this is more likely gas. I will rx simethicone 125mg tid prn. ROV 6 mos . PFSH Medical History Chronic allergic rhinitis Preoperative cardiovascular examination Pre-op examination Precordial chest pain Heart palpitations Nausea and vomiting RUQ abdominal tenderness Adult general medical exam Screening for colon cancer Bilateral hip pain Back pain Screening for prostate cancer Allergic rhinitis Bipolar disorder COPD (chronic obstructive pulmonary disease) Diabetes Surgical History H/O left knee surgery History of cholecystectomy History of esophagogastroduodenoscopy (EGD) History of colonoscopy Family History Father Prostate cancer Other Mental health disorder Substance use disorder Social History Housing: House Alcohol intake: former Patient Tobacco Use Status: Former Tobacco user Tobacco use type: Cigarette Years Smoked: pt quit 15 years ago e-Cigarette/Vaping Use: Never Used Second Hand Smoke Exposure: No service: No Current occupational status: unemployed 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 Cognitive needs: No Hearing needs: No Vision needs: Yes (glasses) Review of Systems Const Denies fatigue, Denies fever(s), Denies night sweats, Denies poor appetite and Denies weight loss Eyes Details: glasses Reports requires corrective lenses ENT Reports Normal hearing present, Denies dental pain, Denies dysphagia, Denies hearing loss, Denies mouth pain, Denies odynophagia, Denies throat swelling, Denies tongue swelling and Reports other (Dentition adequate) Card Reports no additional complaints Resp Reports no additional complaints GI Details: Denies abdominal pain, Denies melena, Reports bloating, Denies hematochezia, Reports constipation, Denies GI cramping, Denies dysphagia, Denies excessive flatus, Denies early satiety, Reports heartburn, Denies diarrhea, Denies nausea, Denies odynophagia, Denies vomiting and Denies hematemesis Skin/Breast Denies pruritus, Denies lesions, Denies rash and Denies jaundice Neuro Reports Normal hearing present and Denies Abnormal speech present Endo Denies fatigue Aller/Immun Denies throat swelling and Denies tongue swelling Physical Exam Vital Signs: Last Vital Signs Pulse 61 01/03/25 12:54 BP 126/68 01/03/25 12:54 BMI result Body Mass Index 36.2 Const General: cooperative, no acute distress, well developed and well groomed Nutritional Appearance: well nourished and obese Orientation/consciousness: oriented to person, oriented to place and oriented to time Limitations: language barrier HEENT Head: Yes normocephalic and Yes atraumatic Eyes General: appearance normal, both eyes and all related structures Pupils: Equal, round and reactive pupils present Neck Neck: Yes normal visual inspection and Yes no lymphadenopathy Thyroid: Thyroid normal Resp Effort & Inspection: normal respiratory effort and able to speak in complete sentences Auscultation: clear to auscultation bilaterally Cardio Rate: regular rate Rhythm: regular rhythm Heart sounds: Normal, physiologic split S2 sound present Peripheral pulses: radial pulses present and posterior tibial pulses present GI Inspection: No distended, No Abdominal panniculus present and Yes obesity Palpation (GI): Soft to palpation, nontender, no guarding, not rigid and No hepatosplenomegaly present Percussion: Yes normal to percussion Auscultation: normal bowel sounds Rectal Exam - Male: Yes deferred Skin General skin exam: no rashes or lesions noted, turgor normal, skin not dry, no jaundice, No spider nevi and no striae Rashes: no rashes Nails: normal Neuro General: oriented to person, oriented to place and oriented to time Cranial nerves: Yes Equal, round and reactive pupils present and Yes Normal hearing present Speech: No Abnormal speech present Extrem General: Yes normal to inspection, No clubbing, No cyanosis and No edema Psych Appearance: grossly normal and well kempt Mental Status: mental status grossly normal Speech and movement: Normal speech and movement present Affect: normal affect Attitude: cooperative Thought process: Normal thought process present and not confabulating Thought content: Normal thought content present Insight: Limited insight present (Psych) Judgement: Limited judgement present (Psych) Results Reviewed Results Reviewed: Laboratory Tests 07/24/24 12/18/24 11:08 10:20 Total Bilirubin 0.8 0.5 AST 34 20 ALT 31 33 Assessment & Plan Assessment & Plan (1) GERD (gastroesophageal reflux disease): Code(s): K21.9 - Gastro-esophageal reflux disease without esophagitis Category: Medical (2) Abdominal bloating: Code(s): R14.0 - Abdominal distension (gaseous) Category: Medical (3) Post-cholecystectomy syndrome: Code(s): K91.5 - Postcholecystectomy syndrome Category: Medical Plan [place] #Jacquie Live He continues on the creon and the omeprazole 20mg bid. I had added cholestyramine to see if bile acid was a part of his ongoing esophagitis. However, if he takes it bid he has nausea and looser stools, so we will decrease to qd. He is having a subjective feeling of bloating. He asks if that is my fatty liver. I educate him that the liver dose not cause this, (LFT's have actually improved over last year) but he also reports borborigus so this is more likely gas. I will rx simethicone 125mg tid prn. ROV 6 mos . Medications: New simethicone (Gas Relief (simethicone)) 125 mg PO BID-QID PRN 90 tabs 6RF abdominal distention K21.9 - Gastro-esophageal reflux disease without esophagitis, R14.0 - Abdominal distension (gaseous) Changed From cholestyramine (with sugar) 4 gram 1 ea PO BID 180 packets 2RF K91.5 - Postcholecystectomy syndrome To cholestyramine (with sugar) 4 gram 1 ea PO .qd 90 packets 2RF K91.5 - Postcholecystectomy syndrome Refilled 2 [id number] 24,000-76,000 -120,000 unit (Creon) administer with meals and/or snacks 2 caps PO BID 30 days 120 caps 6RF K58.9 - Irritable bowel syndrome, unspecified cholestyramine (with sugar) 4 gram 1 ea PO BID 180 packets 2RF K91.5 - Postcholecystectomy syndrome omeprazole 20 mg PO BID 180 caps 1RF K21.9 - Gastro-esophageal reflux disease without esophagitis Coding Level of Care Code Est Pt Level 3 (98506) Diagnoses GERD (gastroesophageal reflux disease) K21.9 Abdominal bloating R14.0 Post-cholecystectomy syndrome K91.5
== END 2025-01-03 13:40 | disposition home or self-care (01) ==
LOC: HO.HGI 12:50
PROVIDERS: PCP Internal Medicine; Visit Provider Nurse Practitioner
DX: K21.9 Gastro-esophageal reflux disease without esophagitis (principal); R14.0 Abdominal distension (gaseous); K91.5 Postcholecystectomy syndrome
CPT/HCPCS: 99213

== ENCOUNTER → 2025-01-03 12:49 | Outpatient (BNVA) | payer OTHER, SELFPAY | PROVIDERS: PCP Internal Medicine; Visit Provider Nurse Practitioner | DX: K21.9 Gastro-esophageal reflux disease without esophagitis (principal); K91.5 Postcholecystectomy syndrome; K58.9 Irritable bowel syndrome, unspecified; R14.0 Abdominal distension (gaseous); Z86.0100 Personal history of colon polyps, unspecified | CPT/HCPCS: 99212 ==

== ENCOUNTER → 2025-01-25 13:48 | Outpatient (REF) | payer OTHER, SELFPAY | LOC: HO.CARD 13:48 | PROVIDERS: PCP Internal Medicine; Visit Provider Internal Medicine | DX: R00.2 Palpitations (principal) | CPT/HCPCS: 93242 ==

== ENCOUNTER → 2025-01-25 13:50 | Outpatient (BNV) | payer OTHER, SELFPAY | PROVIDERS: PCP Internal Medicine; Visit Provider Internal Medicine Cardiovascular Disease | DX: R00.1 Bradycardia, unspecified (principal) | CPT/HCPCS: 93244 ==

== ENCOUNTER 2025-02-27 14:27 | Outpatient (AMB) | payer OTHER, SELFPAY ==
[2025-02-27 14:30] VITALS: BP 116/64; PULSE 63; BMI 36.5
--- NOTE | 2025-02-27 14:30 | MHC.OFFVIS ---
Vital Signs 02/27/25 14:30 Height 6 ft Weight 268 lb 15.423 oz BMI 36.5 BP 116/64 Blood Pressure Location Lt brachial Position Sitting Pulse 63 Intake Visit Reasons: r/s 01/07/25 6 mos f/u after holter Intake Note: 6 month follow-up after holter feeling good Research Professional Required: Yes Research Professional Services: Research Professional Present Research Professional Name: Parish Bennett Allergies No Known Allergies Allergy (Verified 01/03/25 13:02) Medication List - Last Reconciled 02/27/25 by Bobby Marshall MD acetaminophen (Tylenol) 650 mg (2 x 325 mg) PO Q6H PRN albuterol sulfate 90 mcg/actuation 1 inh inhalation Q4-6H PRN amlodipine (Norvasc) 5 mg PO DAILY aspirin 81 mg PO DAILY cane As directed celecoxib (Celebrex) 200 mg PO DAILY PRN cholestyramine (with sugar) 4 gram 1 ea PO .qd cyclobenzaprine 5 mg PO BEDTIME PRN 30 days divalproex (Depakote) 500 mg PO BID fluticasone furoate 100 mcg/actuation (Arnuity Ellipta) 1 inh inhalation DAILY 30 days fluticasone propionate 50 mcg/actuation 2 sprays intranasal DAILY 30 days haloperidol 5 mg PO TID hydroxyzine pamoate 25 mg PO DAILY PRN levothyroxine (Synthroid) 50 mcg PO DAILY huwnnc-ljbxtmap-uhwswcd 24,000-76,000 -120,000 unit (Creon) 2 caps PO BID 30 days losartan-hydrochlorothiazide 100-25 mg (Hyzaar) 1 tab PO DAILY melatonin 5 mg PO BEDTIME PRN metformin 500 mg PO DAILY metoprolol tartrate 50 mg PO BID 90 days montelukast (Singulair) 10 mg PO DAILY omeprazole 20 mg PO BID oxybutynin chloride 5 mg PO DAILY prazosin 2 mg PO BID quetiapine 50 mg PO DAILY sertraline 100 mg PO DAILY simethicone (Gas Relief (simethicone)) 125 mg PO BID-QID PRN simvastatin 40 mg PO DAILY umeclidinium 62.5 mcg/actuation (Incruse Ellipta) 1 inh inhalation DAILY 30 days ziprasidone HCl 40 mg PO DAILY HPI Comments Details: [place] returns for follow-up. In the past, he was seen regarding various symptoms including chest pain and palpitations. 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 Many comorbidities including obesity, diabetes, hypertension, dyslipidemia. He underwent a comprehensive cardiac workup. Subsequently, sent to EP for evaluation and he underwent ablation of accessory pathway. For the most part, he states he feels fine. No specific concerns. [facility] Medical History (Updated 01/03/25 @ 13:31 by MAMADOU Hong) Chronic allergic rhinitis Preoperative cardiovascular examination Pre-op examination Precordial chest pain Heart palpitations Nausea and vomiting RUQ abdominal tenderness Adult general medical exam Screening for colon cancer Bilateral hip pain Back pain Screening for prostate cancer Allergic rhinitis Bipolar disorder COPD (chronic obstructive pulmonary disease) Diabetes Surgical History (Updated 01/15/25 @ 08:42 by Yeimi Ding) H/O left knee surgery History of cholecystectomy History of esophagogastroduodenoscopy (EGD) History of colonoscopy (~04/03/24) Family History Father Prostate cancer Other Mental health disorder Substance use disorder Social History Housing: House Alcohol intake: former Patient Tobacco Use Status: Former Tobacco user Tobacco use type: Cigarette Years Smoked: pt quit 15 years ago e-Cigarette/Vaping Use: Never Used Second Hand Smoke Exposure: No service: No Current occupational status: unemployed 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 Cognitive needs: No Hearing needs: No Vision needs: Yes (glasses) Review of Systems Const Denies chills, Denies fatigue, Denies fever(s), Denies frequent falls, Denies weakness, Denies weight gain and Denies weight loss ENT Denies dizziness Card Denies chest pain, Denies leg edema, Denies lightheadedness, Denies palpitations, Denies dyspnea, Denies dyspnea on exertion, Denies orthopnea and Denies other (loss of consciousness) Resp Denies cough, Denies dyspnea and Denies dyspnea on exertion GI Denies hematochezia and Denies change in stool character Musc Denies abnormal gait, Denies muscle weakness, Denies numbness, Denies radiating pain into limb and Denies tingling Neuro Denies abnormal gait, Denies dizziness, Denies frequent falls, Denies numbness, Denies tingling and Denies weakness Endo Denies fatigue and Denies palpitations Physical Exam Vital Signs: Last Vital Signs Pulse 63 02/27/25 14:30 BP 116/64 02/27/25 14:30 BMI result Body Mass Index 36.5 Const General: comfortable and no acute distress Orientation/consciousness: patient oriented x3 HEENT Other: Unremarkable Head: Yes normal to inspection Neck Neck: Yes normal visual inspection Chest Chest palpation & inspection: normal inspection of the chest Resp Auscultation: clear to auscultation bilaterally Cardio Palpation: normal PMI Heart sounds: S1 normal heart sound present, S2 normal heart sound present, no gallops, no murmurs and no rubs GI Palpation (GI): Soft to palpation Back/Spine/Pelvis Other: unremarkable Skin General skin exam: no rashes or lesions noted Neuro General: patient oriented x3 Extrem General: Yes normal to inspection Psych Mental Status: mental status grossly normal Assessment & Plan Assessment & Plan (1) Hgmzh-Obfwvcxqx-Davez (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 Category: Medical (2) Diabetes: Code(s): E11.9 - Type 2 diabetes mellitus without complications Category: Medical Qualifiers: Diabetes mellitus complication status: without complication Diabetes mellitus half-way insulin use: without half-way use Diabetes mellitus type: type 2 Qualified Code(s): E11.9 - Type 2 diabetes mellitus without complications (3) Hypertension: Code(s): I10 - Essential (primary) hypertension Category: Medical Qualifiers: Hypertension type: primary hypertension Qualified Code(s): I10 - Essential (primary) hypertension (4) DAV (obstructive sleep apnea): Code(s): G47.33 - Obstructive sleep apnea (adult) (pediatric) Category: Medical Plan In summary, 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 Echocardiogram with hyperdynamic LVEF but otherwise unremarkable. In the stress test, he was able to reach 4.6 METS on Damon protocol and reached target heart rate. Had chest pain. Difficult to interpret EKG because of baseline abnormality. There was no suggestion of conduction in accessary pathway. In the perfusion part, unremarkable. In the Holter, underlying rhythm is sinus with frequent supraventricular ectopy. 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 No inducible SVT. Status post catheter ablation. In the most recent Holter, underlying rhythm is sinus with an average rate of 59/Min. Frequent sinus bradycardia. Rare ectopy. Overall, he seems to be stable from the cardiac standpoint. Main recommendation is rather weight loss. We discussed about this today. Compliance with CPAP. Optimal management of diabetes, hypertension. Follow up in one year. Discussion Notes During the visit, we discussed the patient's current treatment plan, which includes maintaining his medication regimen and continued use of CPAP. The patient reported that CPAP use has significantly improved his sleep quality and breathing. We reviewed the benefits of weight loss and its potential to alleviate symptoms related to his condition. The patient was informed that no changes to his current management were necessary at this time, as he is responding well to the treatment. We agreed to schedule a follow-up appointment to monitor his progress and make any necessary adjustments in the future. Patient was informed and verbally consented to the use of an ambient scribe for clinic note documentation during this visit. Patient Instructions: - Continue taking your medication as prescribed. - Use your CPAP machine every night as it helps you breathe and sleep better. - Work on losing weight to improve your health. - Follow up with the scheduled appointment. - Contact us if you experience any new or worsening symptoms. 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
== END 2025-02-27 14:47 | disposition home or self-care (01) ==
LOC: HO.HCS 14:28
PROVIDERS: PCP Internal Medicine; Visit Provider Internal Medicine
DX: I45.6 Pre-excitation syndrome (principal); E11.9 Type 2 diabetes mellitus without complications; I10 Essential (primary) hypertension; G47.33 Obstructive sleep apnea (adult) (pediatric)
CPT/HCPCS: 99214; G2211

== ENCOUNTER → 2025-02-27 14:27 | Outpatient (BNVA) | payer OTHER, SELFPAY | PROVIDERS: PCP Internal Medicine; Visit Provider Internal Medicine | DX: I45.6 Pre-excitation syndrome (principal); R00.2 Palpitations; E11.9 Type 2 diabetes mellitus without complications; I10 Essential (primary) hypertension; G47.33 Obstructive sleep apnea (adult) (pediatric); Z87.891 Personal history of nicotine dependence | CPT/HCPCS: 99212 ==

== ENCOUNTER 2025-03-21 14:21 | Outpatient (AMB) | payer OTHER, SELFPAY ==
--- NOTE | 2025-03-21 14:22 | MHC.OFFVIS ---
Vital Signs 03/21/25 14:24 Height 6 ft Weight 268 lb BMI 36.3 Intake Visit Reasons: Left knee pain Intake Note: [place] is a 55 year old male who presents with complaints of left knee pain. He has had cortisone injections in the past which gave him minimal relief. He has also had Euflexxa injections which gave him very good relief. He did undergo left knee arthroscopic surgery on 12/23/2023. He got temporary relief from that procedure. He wishes to hold off on more surgery if at all possible. He has tried Tylenol and anti-inflammatory medicines which gave him mild relief. He has done physical therapy exercises which aggravated his pain. At this point his left knee pain is interfering with his activities of daily living and his ability to sleep well through the night. Sales Force Administrator Required: Yes Sales Force Administrator Language: Black Top Raker Services: Sales Force Administrator Present Sales Force Administrator Name: José MiguelEVENS/ANITA Allergies No Known Allergies Allergy (Verified 03/21/25 14:26) Medication List - Last Reconciled 03/21/25 by Bg Shahid MD acetaminophen (Tylenol) 650 mg (2 x 325 mg) PO Q6H PRN albuterol sulfate 90 mcg/actuation 1 inh inhalation Q4-6H PRN amlodipine (Norvasc) 5 mg PO DAILY aspirin 81 mg PO DAILY cane As directed celecoxib (Celebrex) 200 mg PO DAILY PRN cholestyramine (with sugar) 4 gram 1 ea PO .qd cyclobenzaprine 5 mg PO BEDTIME PRN 30 days divalproex (Depakote) 500 mg PO BID fluticasone furoate 100 mcg/actuation (Arnuity Ellipta) 1 inh inhalation DAILY 30 days fluticasone propionate 50 mcg/actuation 2 sprays intranasal DAILY 30 days haloperidol 5 mg PO TID hydroxyzine pamoate 25 mg PO DAILY PRN levothyroxine (Synthroid) 50 mcg PO DAILY agphtq-oeggcowz-ytzzjyi 24,000-76,000 -120,000 unit (Creon) 2 caps PO BID 30 days losartan-hydrochlorothiazide 100-25 mg (Hyzaar) 1 tab PO DAILY melatonin 5 mg PO BEDTIME PRN metformin 500 mg PO DAILY metoprolol tartrate 50 mg PO BID 90 days montelukast (Singulair) 10 mg PO DAILY omeprazole 20 mg PO BID oxybutynin chloride 5 mg PO DAILY prazosin 2 mg PO BID quetiapine 50 mg PO DAILY sertraline 100 mg PO DAILY simethicone (Gas Relief (simethicone)) 125 mg PO BID-QID PRN simvastatin 40 mg PO DAILY umeclidinium 62.5 mcg/actuation (Incruse Ellipta) 1 inh inhalation DAILY 30 days ziprasidone HCl 40 mg PO DAILY PFSH Medical History (Updated 01/03/25 @ 13:31 by MAMADOU Hong) Chronic allergic rhinitis Preoperative cardiovascular examination Pre-op examination Precordial chest pain Heart palpitations Nausea and vomiting RUQ abdominal tenderness Adult general medical exam Screening for colon cancer Bilateral hip pain Back pain Screening for prostate cancer Allergic rhinitis Bipolar disorder COPD (chronic obstructive pulmonary disease) Diabetes Surgical History (Updated 01/15/25 @ 08:42 by Yeimi Ding) H/O left knee surgery History of cholecystectomy History of esophagogastroduodenoscopy (EGD) History of colonoscopy (~04/03/24) Family History Father Prostate cancer Other Mental health disorder Substance use disorder Social History Housing: House Alcohol intake: former Patient Tobacco Use Status: Former Tobacco user Tobacco use type: Cigarette Years Smoked: pt quit 15 years ago e-Cigarette/Vaping Use: Never Used Second Hand Smoke Exposure: No service: No Current occupational status: unemployed 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 Cognitive needs: No Hearing needs: No Vision needs: Yes (glasses) Physical Exam Vital Signs: BMI result Body Mass Index 36.3 Const Other: Well-nourished well-developed very friendly male awake alert and oriented x3 in no acute distress Extrem Other: Bilateral lower extremity examination shows good capillary refill, no skin lesions noted, normal sensation light touch Left knee examination shows that the surgical incisions are well healed, no erythema, mild crepitus with range of motion, no instability Assessment & Plan Assessment & Plan (1) Left knee pain: Code(s): M25.562 - Pain in left knee Category: Medical (2) Osteoarthritis of left knee: Code(s): M17.12 - Unilateral primary osteoarthritis, left knee Category: Medical Plan Mr. Grayson presents with left knee pain due to osteoarthritis. I had a lengthy discussion with the patient regarding the treatment options. He wishes to hold off on further surgery if at all possible. I agree with this plan. Thus, I will see if his insurance company will cover a another series of 3 Euflexxa viscosupplementation injections for his left knee. I will see him back once the injections are available. Feel free to call me at any time should questions regarding his orthopedic management arise. I spent 22 minutes in reviewing the patient's records and imaging studies, seeing the patient and documenting in the medical record. Coding Level of Care Code Est Pt Level 3 (55893) Complex EM visit Add On G2211 Diagnoses Left knee pain M25.562 Osteoarthritis of left knee M17.12
[2025-03-21 14:24] VITALS: BMI 36.3
== END 2025-03-21 14:31 | disposition home or self-care (01) ==
LOC: HO.HOS 14:21
PROVIDERS: PCP Internal Medicine; Visit Provider Orthopaedic Surgery
DX: M25.562 Pain in left knee (principal); M17.12 Unilateral primary osteoarthritis, left knee
CPT/HCPCS: 99213; G2211

== ENCOUNTER → 2025-03-21 14:21 | Outpatient (BNVA) | payer OTHER, SELFPAY | PROVIDERS: PCP Internal Medicine; Visit Provider Orthopaedic Surgery | DX: M25.562 Pain in left knee (principal); M17.12 Unilateral primary osteoarthritis, left knee | CPT/HCPCS: 99212 ==

== ENCOUNTER 2025-04-29 09:42 | Outpatient (REF) | payer OTHER, SELFPAY ==
[2025-04-29 11:58] LABS: Alanine Aminotransferase 28 U/L (0-40); Albumin Level 4.3 g/dL (3.5-5.0); Alkaline Phosphatase 57 U/L (39-117); Anion Gap 11 (12-20); Aspartate Amino Transferase 24 U/L (5-37); Blood Urea Nitrogen 11 mg/dL (9-16); Calcium 9.3 mg/dL (8.4-10.2); Carbon Dioxide 26 mmol/L (22-29); Chloride 107 mmol/L (96-108); Cholesterol 150 mg/dL (<200); Estimated Glomerular Filt Rate > 60; HDL Cholesterol 34 mg/dL (>40); Potassium 3.2 mmol/L (3.3-5.1); Sodium 141 mmol/L (135-145); Thyroid Stimulating Hormone 4.15 uIU/mL (0.32-4.0); Total Protein 7.1 g/dL (6.5-8.0); Triglycerides 161 mg/dL (<150)
[2025-04-29 12:37] LABS: Microalbum/Creatinine Ratio Ur 3.5 ug/mg cr (<30)
== END 2025-04-29 09:43 | disposition home or self-care (01) ==
LOC: HO.LAB 09:42
PROVIDERS: PCP Internal Medicine; Visit Provider Internal Medicine
DX: M17.12 Unilateral primary osteoarthritis, left knee (principal); E78.5 Hyperlipidemia, unspecified; R80.9 Proteinuria, unspecified; E55.9 Vitamin D deficiency, unspecified; E03.9 Hypothyroidism, unspecified
CPT/HCPCS: 36415; 80053; 80061; 82043; 82306; 82570; 84443

== ENCOUNTER 2025-07-02 12:32 | Outpatient (AMB) | payer OTHER, SELFPAY ==
--- NOTE | 2025-07-02 12:34 | A.OFFVIS_ITS ---
Vital Signs 07/02/25 12:51 Height 6 ft Weight 268 lb BMI 36.3 BP 109/68 Blood Pressure Location Lt brachial Position Sitting Pulse Oximetry (%) 97 Oxygen Delivery Method Room Air Intake Visit Reasons: Abdominal bloating 6 mo f/u Intake Note: Patient 6 month follow up for abdominal bloating Patient cc: abdominal bloating and denies any other GI issues for today visit. 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 I had added cholestyramine to see if bile acid was a part of his ongoing esophagitis. However, if he takes it bid he has nausea and looser stools, so we will decrease to qd. He is having a subjective feeling of bloating. He asks if that is my fatty liver. I educate him that the liver dose not cause this, (LFT's have actually improved over last year) but he also reports borborigus so this is more likely gas. I will rx simethicone 125mg tid prn. ROV 6 mos . Medications: New simethicone (Gas Relief (simethicone)) 125 mg PO BID-QID PRN 90 tabs 6RF abdominal distention K21.9 - Gastro-esophageal reflux disease without esophagitis, R14.0 - Abdominal distension (gaseous) Changed From cholestyramine (with sugar) 4 gram 1 ea PO BID 180 packets 2RF K91.5 - Postcholecystectomy syndrome To cholestyramine (with sugar) 4 gram 1 ea PO .qd 90 packets 2RF K91.5 - Postcholecystectomy syndrome Refilled ubydhe-bftdydxj-wfkvlly 24,000-76,000 -120,000 unit (Creon) administer with meals and/or snacks 2 caps PO BID 30 days 120 caps 6RF K58.9 - Irritable bowel syndrome, unspecified cholestyramine (with sugar) 4 gram 1 ea PO BID 180 packets 2RF K91.5 - Postcholecystectomy syndrome omeprazole 20 mg PO BID 180 caps 1RF K21.9 - Gastro-esophageal reflux disease without esophagitis TODAYS VISIT [place] #Brooke Lua [facility] Medical History (Updated 01/03/25 @ 13:31 by MAMADOU Hong) Chronic allergic rhinitis Preoperative cardiovascular examination Pre-op examination Precordial chest pain Heart palpitations Nausea and vomiting RUQ abdominal tenderness Adult general medical exam Screening for colon cancer Bilateral hip pain Back pain Screening for prostate cancer Allergic rhinitis Bipolar disorder COPD (chronic obstructive pulmonary disease) Diabetes Surgical History H/O left knee surgery History of cholecystectomy History of esophagogastroduodenoscopy (EGD) History of colonoscopy (~04/03/24) Family History Father Prostate cancer Other Mental health disorder Substance use disorder Social History Housing: House Alcohol intake: former Patient Tobacco Use Status: Former Tobacco user Tobacco use type: Cigarette Years Smoked: pt quit 15 years ago e-Cigarette/Vaping Use: Never Used Second Hand Smoke Exposure: No service: No Current occupational status: unemployed 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 Cognitive needs: No Hearing needs: No Vision needs: Yes (glasses) Review of Systems Const Denies fatigue, Denies fever(s), Denies night sweats, Denies poor appetite and Denies weight loss ENT Reports Normal hearing present, Denies dental pain, Denies dysphagia, Denies hearing loss, Denies mouth pain, Denies odynophagia, Denies throat swelling, Denies tongue swelling and Reports other (Dentition adequate) Card Reports no additional complaints Resp Reports no additional complaints GI Details: Denies abdominal pain, Denies melena, Reports bloating, Denies hematochezia, Den ies constipation, Denies GI cramping, Denies dysphagia, Denies excessive flatus, Denies early satiety, Reports heartburn, Denies diarrhea, Reports loose stools, Denies nausea, Denies odynophagia, Denies vomiting and Denies hematemesis Skin/Breast Denies pruritus, Denies lesions, Denies rash and Denies jaundice Neuro Reports Normal hearing present and Denies Abnormal speech present Endo Denies fatigue Aller/Immun Denies throat swelling and Denies tongue swelling Physical Exam Vital Signs: Last Vital Signs BP 109/68 07/02/25 12:51 Pulse Ox 97 07/02/25 12:51 Oxygen Delivery Method Room Air 07/02/25 12:51 BMI result Body Mass Index 36.3 Const General: cooperative, no acute distress, well developed and well groomed Nutritional Appearance: well nourished and obese Orientation/consciousness: oriented to person, oriented to place and oriented to time Limitations: language barrier HEENT Head: Yes normocephalic and Yes atraumatic Eyes General: appearance normal, both eyes and all related structures Pupils: Equal, round and reactive pupils present Neck Neck: Yes normal visual inspection and Yes no lymphadenopathy Thyroid: Thyroid normal Resp Effort & Inspection: normal respiratory effort and able to speak in complete sentences Auscultation: clear to auscultation bilaterally Cardio Rate: regular rate Rhythm: regular rhythm Heart sounds: Normal, physiologic split S2 sound present Peripheral pulses: radial pulses present and posterior tibial pulses present GI Inspection: No distended, No Abdominal panniculus present and Yes obesity Palpation (GI): Soft to palpation, nontender, no guarding, not rigid and No hepatosplenomegaly present Percussion: Yes normal to percussion Auscultation: normal bowel sounds Rectal Exam - Male: Yes deferred Skin General skin exam: no rashes or lesions noted, turgor normal, skin not dry, no jaundice, No spider nevi and no striae Rashes: no rashes Nails: normal Neuro General: oriented to person, oriented to place and oriented to time Cranial nerves: Yes Equal, round and reactive pupils present and Yes Normal hearing present Speech: No Abnormal speech present Extrem General: Yes normal to inspection, No clubbing, No cyanosis and No edema Psych Appearance: grossly normal and well kempt Mental Status: mental status grossly normal Speech and movement: Normal speech and movement present Affect: normal affect Attitude: cooperative Thought process: Normal thought process present and not confabulating Thought content: Normal thought content present Insight: Limited insight present (Psych) Judgement: Limited judgement present (Psych) Assessment & Plan Assessment & Plan (1) GERD (gastroesophageal reflux disease): Code(s): K21.9 - Gastro-esophageal reflux disease without esophagitis Category: Medical (2) Post-cholecystectomy syndrome: Code(s): 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 We had added the simethicone at the last visit any feels that this has completely addressed his complaint of bloating. With this he is now quite satisfied with his GI regimen. Return office visit in 6 months Medications: Refilled kxlsbb-foicxkoz-vkeqcdr 24,000-76,000 -120,000 unit (Creon) administer with meals and/or snacks 2 caps PO BID 120 caps 6RF 30 days K58.9 - Irritable bowel syndrome, unspecified cholestyramine (with sugar) 4 gram 1 ea PO .qd 90 packets 2RF K91.5 - Postcholecystectomy syndrome omeprazole 20 mg PO BID 180 caps 1RF K21.9 - Gastro-esophageal reflux disease without esophagitis simethicone (Gas Relief (simethicone)) 125 mg PO BID-QID PRN 90 tabs 6RF abdominal distention K21.9 - Gastro-esophageal reflux disease without esophagi tis, R14.0 - Abdominal distension (gaseous) Coding Level of Care Code Est Pt Level 3 (67246) Diagnoses GERD (gastroesophageal reflux disease) K21.9 Post-cholecystectomy syndrome K91.5 Abdominal bloating R14.0
[2025-07-02 12:51] VITALS: BP 109/68; O2SAT 97; BMI 36.3
== END 2025-07-02 13:17 | disposition home or self-care (01) ==
LOC: HO.HGI 12:32
PROVIDERS: PCP Internal Medicine; Visit Provider Nurse Practitioner
DX: K21.9 Gastro-esophageal reflux disease without esophagitis (principal); K91.5 Postcholecystectomy syndrome; R14.0 Abdominal distension (gaseous)
CPT/HCPCS: 99213

== ENCOUNTER → 2025-07-02 12:32 | Outpatient (BNVA) | payer OTHER, SELFPAY | PROVIDERS: PCP Internal Medicine; Visit Provider Nurse Practitioner | DX: M17.12 Unilateral primary osteoarthritis, left knee (principal); K21.9 Gastro-esophageal reflux disease without esophagitis; K91.5 Postcholecystectomy syndrome; R14.0 Abdominal distension (gaseous) | CPT/HCPCS: 20610; 99212; J2003; J7323 ==

== ENCOUNTER 2025-07-02 14:21 | Outpatient (AMB) | payer OTHER, SELFPAY ==
--- NOTE | 2025-07-02 14:27 | A.OFFVIS_ITS ---
Vital Signs 07/02/25 14:32 Height 6 ft Weight 270 lb BMI 36.6 Intake Visit Reasons: Inj: Left Knee Euflexxa #1 Intake Note: [place] is a 55 year old male who presents with complaints of left knee pain. He describes his pain as sharp in nature. He has failed the last 3 months of conservative treatment. He wishes to hold off on surgery if at all possible. General Office Worker Required: Yes General Office Worker Services: General Office Worker Present General Office Worker Name: [id number]- Dustin. Allergies No Known Allergies Allergy (Verified 07/02/25 14:32) Medication List - Last Reconciled 07/02/25 by Bg Shahid MD acetaminophen (Tylenol) 650 mg (2 x 325 mg) PO Q6H PRN albuterol sulfate 90 mcg/actuation 1 inh inhalation Q4-6H PRN amlodipine (Norvasc) 5 mg PO DAILY aspirin 81 mg PO DAILY cane As directed celecoxib (Celebrex) 200 mg PO DAILY PRN cholestyramine (with sugar) 4 gram 1 ea PO .qd cyclobenzaprine 5 mg PO BEDTIME PRN 30 days divalproex (Depakote) 500 mg PO BID fluticasone furoate 100 mcg/actuation (Arnuity Ellipta) 1 inh inhalation DAILY 30 days fluticasone propionate 50 mcg/actuation 2 sprays intranasal DAILY 30 days haloperidol 5 mg PO TID hydroxyzine pamoate 25 mg PO DAILY PRN levothyroxine (Synthroid) 50 mcg PO DAILY vjdlgk-jwjtgmne-iqmormx 24,000-76,000 -120,000 unit (Creon) 2 caps PO BID 30 days losartan-hydrochlorothiazide 100-25 mg (Hyzaar) 1 tab PO DAILY melatonin 5 mg PO BEDTIME PRN metformin 500 mg PO DAILY metoprolol tartrate 50 mg PO BID 90 days montelukast (Singulair) 10 mg PO DAILY omeprazole 20 mg PO BID oxybutynin chloride 5 mg PO DAILY prazosin 2 mg PO BID quetiapine 50 mg PO DAILY sertraline 100 mg PO DAILY simethicone (Gas Relief (simethicone)) 125 mg PO BID-QID PRN simvastatin 40 mg PO DAILY umeclidinium 62.5 mcg/actuation (Incruse Ellipta) 1 inh inhalation DAILY 30 days ziprasidone HCl 40 mg PO DAILY [facility] Medical History (Updated 01/03/25 @ 13:31 by MAMADOU Hong) Chronic allergic rhinitis Preoperative cardiovascular examination Pre-op examination Precordial chest pain Heart palpitations Nausea and vomiting RUQ abdominal tenderness Adult general medical exam Screening for colon cancer Bilateral hip pain Back pain Screening for prostate cancer Allergic rhinitis Bipolar disorder COPD (chronic obstructive pulmonary disease) Diabetes Surgical History H/O left knee surgery History of cholecystectomy History of esophagogastroduodenoscopy (EGD) History of colonoscopy (~04/03/24) Family History Father Prostate cancer Other Mental health disorder Substance use disorder Social History Housing: House Alcohol intake: former Patient Tobacco Use Status: Former Tobacco user Tobacco use type: Cigarette Years Smoked: pt quit 15 years ago e-Cigarette/Vaping Use: Never Used Second Hand Smoke Exposure: No service: No Current occupational status: unemployed 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 Cognitive needs: No Hearing needs: No Vision needs: Yes (glasses) Physical Exam Vital Signs: BMI result Body Mass Index 36.6 Const Other: Well-nourished well-developed very friendly male awake alert and oriented x3 in no acute distress Extrem Other: Left knee examination shows a minimal effusion, palpable crepitus with range of motion, pain with range of motion, no instability Office Procedures AMB Joint Injection/Aspiration Joint Injection/Aspiration Primary Site: left knee Prep: site was prepped using aseptic technique Injected: 20 mg of (Euflexxa viscosupplementation) and 1% plain lidocaine Procedure: The patient tolerated the procedure well Coding 24517 - Large joint Procedure code (CPT) selection complete Results Reviewed Results Reviewed: X-rays of the patient's left knee show joint space narrowing, subchondral sclerosis, no acute bony abnormalities Assessment & Plan Assessment & Plan (1) Osteoarthritis of left knee: Code(s): M17.12 - Unilateral primary osteoarthritis, left knee Category: Medical Plan Mr. Grayson presents with left knee pain due to osteoarthritis. The risks and benefits of a series of Euflexxa injections were discussed at length with the patient. The patient wished to proceed. He tolerated the 1st injection well. He will continue with his home exercise program. He will follow up next week as scheduled. Feel free to call me at any time should questions regarding his orthopedic management arise. I spent 21 minutes in reviewing the patient's records and imaging studies, seeing the patient and documenting in the medical record. Orders: Orders AMB Joint Injection/Aspiration Today M17.12 - Unilateral primary osteoarthritis, left knee Coding Level of Care Code Est Pt Level 3 (91516) Complex EM visit Add On G2211 Diagnoses Osteoarthritis of left knee M17.12 CPT Codes Coding - 47539 Large joint: 74003 - Large joint ([id number])
[2025-07-02 14:32] VITALS: BMI 36.6
== END 2025-07-02 14:55 | disposition home or self-care (01) ==
LOC: HO.HOS 14:21
PROVIDERS: PCP Internal Medicine; Visit Provider Orthopaedic Surgery
DX: M17.12 Unilateral primary osteoarthritis, left knee (principal)
CPT/HCPCS: 20610; 99213

== ENCOUNTER 2025-07-09 14:43 | Outpatient (AMB) | payer OTHER, SELFPAY ==
--- NOTE | 2025-07-09 14:45 | MHC.OFFVIS ---
Vital Signs 07/09/25 14:49 Height 6 ft Weight 268 lb BMI 36.3 Intake Visit Reasons: Inj: Left Knee Euflexxa #2 Intake Note: [place] is a 55 year old male who presents today for an injection in his left knee, Euflexxa #2. Patient states that the last injection did give relief. He continues with his home exercise program. Supervisor Compressed Yeast Services: Supervisor Compressed Yeast Present Supervisor Compressed Yeast Name: [id number] Allergies No Known Allergies Allergy (Verified 07/09/25 14:50) Medication List - Last Reconciled 07/09/25 by Bg Shahid MD acetaminophen (Tylenol) 650 mg (2 x 325 mg) PO Q6H PRN albuterol sulfate 90 mcg/actuation 1 inh inhalation Q4-6H PRN amlodipine (Norvasc) 5 mg PO DAILY aspirin 81 mg PO DAILY cane As directed celecoxib (Celebrex) 200 mg PO DAILY PRN cholestyramine (with sugar) 4 gram 1 ea PO .qd cyclobenzaprine 5 mg PO BEDTIME PRN 30 days divalproex (Depakote) 500 mg PO BID fluticasone furoate 100 mcg/actuation (Arnuity Ellipta) 1 inh inhalation DAILY 30 days fluticasone propionate 50 mcg/actuation 2 sprays intranasal DAILY 30 days haloperidol 5 mg PO TID hydroxyzine pamoate 25 mg PO DAILY PRN levothyroxine (Synthroid) 50 mcg PO DAILY molkjr-zxlmogxa-ylcvxbr 24,000-76,000 -120,000 unit (Creon) 2 caps PO BID 30 days losartan-hydrochlorothiazide 100-25 mg (Hyzaar) 1 tab PO DAILY melatonin 5 mg PO BEDTIME PRN metformin 500 mg PO DAILY metoprolol tartrate 50 mg PO BID 90 days montelukast (Singulair) 10 mg PO DAILY omeprazole 20 mg PO BID oxybutynin chloride 5 mg PO DAILY prazosin 2 mg PO BID quetiapine 50 mg PO DAILY sertraline 100 mg PO DAILY simethicone (Gas Relief (simethicone)) 125 mg PO BID-QID PRN simvastatin 40 mg PO DAILY umeclidinium 62.5 mcg/actuation (Incruse Ellipta) 1 inh inhalation DAILY 30 days ziprasidone HCl 40 mg PO DAILY [facility] Medical History (Updated 01/03/25 @ 13:31 by MAMADOU Hong) Chronic allergic rhinitis Preoperative cardiovascular examination Pre-op examination Precordial chest pain Heart palpitations Nausea and vomiting RUQ abdominal tenderness Adult general medical exam Screening for colon cancer Bilateral hip pain Back pain Screening for prostate cancer Allergic rhinitis Bipolar disorder COPD (chronic obstructive pulmonary disease) Diabetes Surgical History H/O left knee surgery History of cholecystectomy History of esophagogastroduodenoscopy (EGD) History of colonoscopy (~04/03/24) Family History Father Prostate cancer Other Mental health disorder Substance use disorder Social History Housing: House Alcohol intake: former Patient Tobacco Use Status: Former Tobacco user Tobacco use type: Cigarette Years Smoked: pt quit 15 years ago e-Cigarette/Vaping Use: Never Used Second Hand Smoke Exposure: No service: No Current occupational status: unemployed 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 Cognitive needs: No Hearing needs: No Vision needs: Yes (glasses) Physical Exam Vital Signs: BMI result Body Mass Index 36.3 Extrem Other: Left knee examination shows a minimal effusion, palpable crepitus with range of motion, pain with range of motion, no instability Office Procedures AMB Joint Injection/Aspiration Joint Injection/Aspiration Primary Site: left knee Prep: site was prepped using aseptic technique Injected: 20 mg of (Euflexxa viscosupplementation) and 1% plain lidocaine Procedure: The patient tolerated the procedure well Coding 35539 - Large joint Procedure code (CPT) selection complete Assessment & Plan Assessment & Plan (1) Osteoarthritis of left knee: Code(s): M17.12 - Unilateral primary osteoarthritis, left knee Category: Medical Plan Mr. Grayson presents with left knee pain due to osteoarthritis. The risks and benefits of a 2nd Euflexxa viscosupplementation injection were discussed at length with the patient. The patient wished to proceed. He tolerated the injection well. He will continue with his home exercise program. Will contact me prior to his follow-up appointment next weeks should any questions or concerns arise. Feel free to call me at any time should questions regarding his orthopedic management arise. Orders: Orders AMB Joint Injection/Aspiration Today M17.12 - Unilateral primary osteoarthritis, left knee Coding Level of Care Code Procedure Only Diagnoses Osteoarthritis of left knee M17.12 CPT Codes Coding - 11389 Large joint: 24959 - Large joint ([id number])
[2025-07-09 14:49] VITALS: BMI 36.3
== END 2025-07-09 15:04 | disposition home or self-care (01) ==
LOC: HO.HOS 14:44
PROVIDERS: PCP Internal Medicine; Visit Provider Orthopaedic Surgery
DX: M17.12 Unilateral primary osteoarthritis, left knee (principal)
CPT/HCPCS: 20610

== ENCOUNTER → 2025-07-09 14:43 | Outpatient (BNVA) | payer OTHER, SELFPAY | PROVIDERS: PCP Internal Medicine; Visit Provider Orthopaedic Surgery | DX: M17.12 Unilateral primary osteoarthritis, left knee (principal) | CPT/HCPCS: 20610; J1010; J2003; J7323 ==

== ENCOUNTER 2025-07-16 14:42 | Outpatient (AMB) | payer OTHER, SELFPAY ==
--- NOTE | 2025-07-16 14:47 | MHC.OFFVIS ---
Vital Signs 07/16/25 14:49 Height 6 ft Weight 269 lb BMI 36.5 Intake Visit Reasons: Inj: Left Knee Euflexxa #3 Intake Note: [place] is a 55 year old male who presents today for an injection in his Left Knee, Euflexxa #3. Patient states that the last injection did give him mild relief. He continues with his home exercise program. Allergies No Known Allergies Allergy (Verified 07/16/25 14:49) Medication List - Last Reconciled 07/16/25 by Bg Shahid MD acetaminophen (Tylenol) 650 mg (2 x 325 mg) PO Q6H PRN albuterol sulfate 90 mcg/actuation 1 inh inhalation Q4-6H PRN amlodipine (Norvasc) 5 mg PO DAILY aspirin 81 mg PO DAILY cane As directed celecoxib (Celebrex) 200 mg PO DAILY PRN cholestyramine (with sugar) 4 gram 1 ea PO .qd cyclobenzaprine 5 mg PO BEDTIME PRN 30 days divalproex (Depakote) 500 mg PO BID fluticasone furoate 100 mcg/actuation (Arnuity Ellipta) 1 inh inhalation DAILY 30 days fluticasone propionate 50 mcg/actuation 2 sprays intranasal DAILY 30 days haloperidol 5 mg PO TID hydroxyzine pamoate 25 mg PO DAILY PRN levothyroxine (Synthroid) 50 mcg PO DAILY hgduiy-awiiodpy-ggmfylb (pork) 24,000-76,000 -120,000 unit (Creon) 2 caps PO BID 30 days losartan-hydrochlorothiazide 100-25 mg (Hyzaar) 1 tab PO DAILY melatonin 5 mg PO BEDTIME PRN metformin 500 mg PO DAILY metoprolol tartrate 50 mg PO BID 90 days montelukast (Singulair) 10 mg PO DAILY omeprazole 20 mg PO BID oxybutynin chloride 5 mg PO DAILY prazosin 2 mg PO BID quetiapine 50 mg PO DAILY sertraline 100 mg PO DAILY simethicone (Gas Relief (simethicone)) 125 mg PO BID-QID PRN simvastatin 40 mg PO DAILY umeclidinium 62.5 mcg/actuation (Incruse Ellipta) 1 inh inhalation DAILY 30 days ziprasidone HCl 40 mg PO DAILY [facility] Medical History (Updated 01/03/25 @ 13:31 by MAMADOU Hong) Chronic allergic rhinitis Preoperative cardiovascular examination Pre-op examination Precordial chest pain Heart palpitations Nausea and vomiting RUQ abdominal tenderness Adult general medical exam Screening for colon cancer Bilateral hip pain Back pain Screening for prostate cancer Allergic rhinitis Bipolar disorder COPD (chronic obstructive pulmonary disease) Diabetes Surgical History H/O left knee surgery History of cholecystectomy History of esophagogastroduodenoscopy (EGD) History of colonoscopy (~04/03/24) Family History Father Prostate cancer Other Mental health disorder Substance use disorder Social History Housing: House Alcohol intake: former Patient Tobacco Use Status: Former Tobacco user Tobacco use type: Cigarette Years Smoked: pt quit 15 years ago e-Cigarette/Vaping Use: Never Used Second Hand Smoke Exposure: No service: No Current occupational status: unemployed 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 Cognitive needs: No Hearing needs: No Vision needs: Yes (glasses) Physical Exam Vital Signs: BMI result Body Mass Index 36.5 Extrem Other: Left knee examination shows a minimal effusion, palpable crepitus with range of motion, pain with range of motion, no instability Office Procedures AMB Joint Injection/Aspiration Joint Injection/Aspiration Primary Site: left knee Prep: site was prepped using aseptic technique Injected: 20 mg of (Euflexxa viscosupplementation) and 1% plain lidocaine Procedure: The patient tolerated the procedure well Coding - Large joint Procedure code (CPT) selection complete Assessment & Plan Assessment & Plan (1) Osteoarthritis of left knee: Code(s): M17.12 - Unilateral primary osteoarthritis, left knee Category: Medical Plan Mr. Grayson presents with left knee pain due to osteoarthritis. The risks and benefits of a 3rd Euflexxa injection were discussed at length with the patient. The patient wished to proceed. He tolerated the injection well. He will continue with his home exercise program. He will contact me prior to his follow-up appointment in 3 months should any questions or concerns arise. Feel free to call me at any time should questions regarding his orthopedic management arise. Orders: Orders AMB Joint Injection/Aspiration Today M17.12 - Unilateral primary osteoarthritis, left knee Coding Level of Care Code Procedure Only Diagnoses Osteoarthritis of left knee M17.12 CPT Codes Coding - Large joint: 47956 - Large joint ([id number])
[2025-07-16 14:49] VITALS: BMI 36.5
== END 2025-07-16 14:58 | disposition home or self-care (01) ==
LOC: HO.HOS 14:43
PROVIDERS: PCP Internal Medicine; Visit Provider Orthopaedic Surgery
DX: M17.12 Unilateral primary osteoarthritis, left knee (principal)
CPT/HCPCS: 20610

== ENCOUNTER → 2025-07-16 14:42 | Outpatient (BNVA) | payer OTHER, SELFPAY | PROVIDERS: PCP Internal Medicine; Visit Provider Orthopaedic Surgery | DX: M17.12 Unilateral primary osteoarthritis, left knee (principal) | CPT/HCPCS: 20610; J2003; J7323 ==

== ENCOUNTER 2025-07-25 14:22 | Outpatient (AMB) | payer OTHER, SELFPAY ==
[2025-07-25 14:25] VITALS: BP 130/80; PULSE 79; O2SAT 95; BMI 35.6
--- NOTE | 2025-07-25 14:25 | A.OFFVIS_ITS ---
Vital Signs 07/25/25 14:25 Height 6 ft Weight 262 lb 5.601 oz BMI 35.6 BP 130/80 Blood Pressure Location Lt brachial Position Sitting Pulse 79 Pulse Source Pulse Oximeter Pulse Oximetry (%) 95 Oxygen Delivery Method Room Air Intake Visit Reasons: COPD Business Quality Assurance Analyst Required: Yes Business Quality Assurance Analyst Services: Business Quality Assurance Analyst Offered & Declined Business Quality Assurance Analyst Name: MD speaks [place] Information Interpreted: clinical only Accompanied by: Self / Same As Patient Allergies No Known Allergies Allergy (Verified 07/25/25 14:29) HPI Comments Details: The patient is a 55-year-old gentleman with known history of WPW presenting with worsening dyspnea on exertion. The patient has moderate degree of dyspnea on exertion. Apparently when going up a flight of stairs or an incline. Symptoms Seems to be progressively getting worse. Has not seen any Significant improvement. Currently he is awaiting a cardiac catheterization for a ablation I believe at [facility]. Hopefully this provides some relief. In the meantime the patient does have a remote smoking history. He quit about 15 years ago. Still has a cough. Nonproductive in nature. He was hoping that by now his symptoms from smoking would be resolved. No recent x- rays to review. No recent pulmonary function study. The patient also has significant daytime drowsiness. His Conrath score is elevated 10/24. He does have documented snoring and apnea. The patient needs to have a sleep study. In view of his cardiac history with cardiac arrhythmias I do believe that an in-lab sleep study we more beneficial. Will request a in-lab polysomnogram at this time. The patient will follow-up after his PFTs. Also request a chest x-ray in the sleep study and then will review them in the coming weeks. 07/23/2024 the patient is here for a pulmonary follow-up visit. He continues to have significant daytime drowsiness. His Conrath score is elevated 11/24. He did have a sleep study. It was a difficult sleep study because he could not fall asleep. However, did have significant sleep apnea even though it was a very limited study. Likely they severity of his sleep apnea prevents him from getting adequate sleep hygiene. Therefore this point will go ahead and request a CPAP to be started VIC. In addition to that the patient continues to have cough. He responded well to the inhaler therapy. He does complaint of nasal congestion. Feel like the Singulair is helping. Will start him on a nasal steroid spray. I did also encourage him to perform sinus rinses. Will follow- up in 3 months. The patient has any worsening symptoms he will call for an earlier assessment. 10/25/2024 the patient is here for a pulmonary follow-up visit. Overall the patient is doing well. He did have the pulmonary function studies demonstrated no obstructive nor restrictive ventilatory defects. Chest x-ray is also completely clear. We personally reviewed together. In addition to that the patient did start his CPAP. CPAP therapy has been affecting beneficial. He has been using more than 4 hours a night. After request access to the air New[employer]stand to review the results and also to adjust the machine further. But for now he is having increased shortness of breath having to use his rescue inhaler more often. Likely because the winter months. Will go ahead and make sure that he is using the Arnuity along with the Incruse on a daily basis and he can use his rescue inhaler as needed. Will follow-up in 6 months if any issues arise he will call for an earlier assessment. 07/25/2025 the patient is here for pulmonary follow-up visit. He still has dyspnea on exertion. He has been using the Arnuity in the Incruse. Although he still requires his rescue inhaler often. Typically once or twice a day. He does not like the HFA rather have the powder in albuterol. For that reason will go ahead and switch him over from Incruse to Anoro in order for him to have the long-acting beta agonist effect. It also tends to be milder so it does not tend to affect a cardiac arrhythmias much. Therefore he does not have to use his rescue inhalers often. Hopefully that will help him with his breathing. He is also feels tired. He has been using the CPAP and we did downloaded data. His AHI is around 2. Therefore I did increase the minimum pressure from 6-8 with the hopes of decreasing the average AHI it hopefully allow him to have less daytime drowsiness. He is also dealing with lack of exercise and deconditioning. He can not exercise much with a bad knee. He is going to look at other alternative ways of exercising to keep himself active at this time. He will follow-up in the springtime the patient will continue to use his CPAP as he currently is using the nasal mask, cradle. Seems to be tolerating it well without any significant leakage from the mouth. If any issues arise she can always call for further recommendations. [facility] Medical History (Updated 01/03/25 @ 13:31 by MAMADOU Hong) Chronic allergic rhinitis Preoperative cardiovascular examination Pre-op examination Precordial chest pain Heart palpitations Nausea and vomiting RUQ abdominal tenderness Adult general medical exam Screening for colon cancer Bilateral hip pain Back pain Screening for prostate cancer Allergic rhinitis Bipolar disorder COPD (chronic obstructive pulmonary disease) Diabetes Surgical History H/O left knee surgery History of cholecystectomy History of esophagogastroduodenoscopy (EGD) History of colonoscopy (~04/03/24) Family History Father Prostate cancer Other Mental health disorder Substance use disorder Social History Housing: House Alcohol intake: former Patient Tobacco Use Status: Former Tobacco user Tobacco use type: Cigarette Years Smoked: pt quit 15 years ago e-Cigarette/Vaping Use: Never Used Second Hand Smoke Exposure: No service: No Current occupational status: unemployed 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 Cognitive needs: No Hearing needs: No Vision needs: Yes (glasses) Review of Systems Const Denies daytime sleepiness, Denies headache(s), Denies snoring and Reports stops breathing during sleep Eyes Reports no additional complaints ENT Denies headache(s), Reports nasal congestion and Reports nasal discharge Card Denies chest pain, Reports palpitations and Reports dyspnea on exertion Resp Reports cough, Reports dyspnea on exertion, Denies snoring and Denies wheezing GI Reports no additional complaints Musc Reports no additional complaints Skin/Breast Denies rash Neuro Denies headache(s) Endo Reports palpitations Aller/Immun Denies wheezing Physical Exam Vital Signs: Last Vital Signs Pulse 79 07/25/25 14:25 BP 130/80 07/25/25 14:25 Pulse Ox 95 07/25/25 14:25 Oxygen Delivery Method Room Air 07/25/25 14:25 BMI result Body Mass Index 35.6 Const General: comfortable HEENT Head: Yes normocephalic General nose exam: Abnormal mucous membranes and turbinates present erythematous Neck Neck: Yes supple Chest Chest palpation & inspection: normal inspection of the chest Resp Effort & Inspection: normal respiratory effort Auscultation: diminished lung sounds Cardio Heart sounds: S1 normal heart sound present and S2 normal heart sound present GI Palpation (GI): Soft to palpation Skin General skin exam: no rashes or lesions noted Extrem General: Yes no clubbing, cyanosis or edema Assessment & Plan Assessment & Plan (1) COPD (chronic obstructive pulmonary disease): Code(s): J44.9 - Chronic obstructive pulmonary disease, unspecified Category: Medical Qualifiers: COPD type: unspecified COPD Qualified Code(s): J44.9 - Chronic obstructive pulmonary disease, unspecified (2) 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 Category: Medical (3) DAV (obstructive sleep apnea): Code(s): G47.33 - Obstructive sleep apnea (adult) (pediatric) Category: Medical (4) Chronic allergic rhinitis: Code(s): J30.9 - Allergic rhinitis, unspecified Category: Medical Plan Continue Arnuity stop Incruse start Anoro daily SHANTI as needed continue APAP, adjusted 6-18 to 8-18 continue singulair neilmed PM sinus rinse with distilled water F/U 8-12 months Medications: New umeclidinium-vilanterol 62.5-25 mcg/actuation (Anoro Ellipta) 1 inh inhalation DAILY 60 ea 11RF J44.9 - Chronic obstructive pulmonary disease, unspecified Refilled fluticasone furoate 100 mcg/actuation (Arnuity Ellipta) 1 inh inhalation DAILY 30 ea 6RF 30 days Coding Level of Care Code Est Pt Level 4 (57195) Complex EM visit Add On G2211 Diagnoses Chronic obstructive pulmonary disease, unspecified COPD type J44.9 COPD type: unspecified COPD Zxrgu-Lzoygocaw-Jybcz (WPW) pattern I45.6 DAV (obstructive sleep apnea) G47.33 Chronic allergic rhinitis J30.9 Time Spent (min) 17
== END 2025-07-25 14:53 | disposition home or self-care (01) ==
LOC: HO.HPS 14:23
PROVIDERS: PCP Internal Medicine; Visit Provider Hospitalist
DX: J44.9 Chronic obstructive pulmonary disease, unspecified (principal); I45.6 Pre-excitation syndrome; G47.33 Obstructive sleep apnea (adult) (pediatric); J30.9 Allergic rhinitis, unspecified
CPT/HCPCS: 99214

== ENCOUNTER → 2025-07-25 14:22 | Outpatient (BNVA) | payer OTHER, SELFPAY | PROVIDERS: PCP Internal Medicine; Visit Provider Hospitalist | DX: J44.9 Chronic obstructive pulmonary disease, unspecified (principal); I45.6 Pre-excitation syndrome; G47.33 Obstructive sleep apnea (adult) (pediatric); J30.9 Allergic rhinitis, unspecified | CPT/HCPCS: 99212 ==

== ENCOUNTER 2025-08-06 13:43 | Outpatient (AMB) | payer OTHER, SELFPAY ==
--- NOTE | 2025-08-06 13:45 | A.OFFPC_ITS ---
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 Required: No Accompanied by: Self / Same As Patient Allergies No Known Allergies Allergy (Verified 08/06/25 14:20) Medication List - Last Reconciled 08/06/25 by Jacquie Lagunas MD acetaminophen (Tylenol) 650 mg (2 x 325 mg) PO Q6H PRN albuterol sulfate 90 mcg/actuation 1 inh inhalation Q4-6H PRN amlodipine (Norvasc) 5 mg PO DAILY aspirin 81 mg PO DAILY cane As directed celecoxib (Celebrex) 200 mg PO DAILY PRN cholestyramine (with sugar) 4 gram 1 ea PO .qd cyclobenzaprine 5 mg PO BEDTIME PRN 30 days divalproex (Depakote) 500 mg PO BID fluticasone furoate 100 mcg/actuation (Arnuity Ellipta) 1 inh inhalation DAILY 30 days fluticasone propionate 50 mcg/actuation 2 sprays intranasal DAILY 30 days haloperidol 5 mg PO TID hydroxyzine pamoate 25 mg PO DAILY PRN levothyroxine (Synthroid) 50 mcg PO DAILY wsutvj-krfhuzeb-uvywfxs (pork) 24,000-76,000 -120,000 unit (Creon) 2 caps PO BID 30 days losartan-hydrochlorothiazide 100-25 mg (Hyzaar) 1 tab PO DAILY melatonin 5 mg PO BEDTIME PRN metformin 500 mg PO DAILY metoprolol tartrate 50 mg PO BID 90 days montelukast (Singulair) 10 mg PO DAILY omeprazole 20 mg PO BID oxybutynin chloride 5 mg PO DAILY prazosin 2 mg PO BID quetiapine 50 mg PO DAILY sertraline 100 mg PO DAILY simethicone (Gas Relief (simethicone)) 125 mg PO BID-QID PRN simvastatin 40 mg PO DAILY umeclidinium-vilanterol 62.5-25 mcg/actuation (Anoro Ellipta) 1 inh inhalation DAILY ziprasidone HCl 40 mg PO DAILY Tobacco use date assessed: 08/06/25 Dental Screening Dental Screen Date: 08/06/25 Did you have a dental visit in the last 12 months?: Yes Did you have a dental problem in the last 6 months where you did not have access to dental care?: No Was dental information given to patient?: Patient has dentist HPI HPI Comments History of Present Illness Details The patient is a 55-year-old male presenting for an annual physical exam. He has a history of bipolar disorder for which he sees a psychiatrist. The patient also has a history of Chronic Obstructive Pulmonary Disease (COPD). The patient has diabetes and was on metformin several years ago. He reports his sugar levels are typically well-maintained, under 100. Past lab work revealed a slightly low potassium level. For health maintenance, the patient completed a colonoscopy last year and is due for an influenza vaccine. [facility] Medical History Chronic allergic rhinitis Preoperative cardiovascular examination Pre-op examination Precordial chest pain Heart palpitations Nausea and vomiting RUQ abdominal tenderness Adult general medical exam Screening for colon cancer Bilateral hip pain Back pain Screening for prostate cancer Allergic rhinitis Bipolar disorder COPD (chronic obstructive pulmonary disease) Diabetes Surgical History H/O left knee surgery History of cholecystectomy History of esophagogastroduodenoscopy (EGD) History of colonoscopy (~04/03/24) Family History Father Prostate cancer Other Mental health disorder Substance use disorder Social History Housing: House Alcohol intake: former Patient Tobacco Use Status: Former Tobacco user Tobacco use type: Cigarette Years Smoked: pt quit 15 years ago e-Cigarette/Vaping Use: Never Used Second Hand Smoke Exposure: No service: No Current occupational status: unemployed 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 1. Little interest or pleasure in doing things: several days 2. Feeling down, depressed, or hopeless: several days 3. Trouble falling or staying asleep, or sleeping too much: more than half the days 4. Feeling tired or having little energy: several days 5. Poor appetite or overeating: more than half the days 6. Feeling bad about yourself - or that you are a failure or have let yourself or your family down: several days 7. Trouble concentrating on things, such as reading the newspaper or watching television: more than half the days 8. Moving or speaking so slowly that other people could have noticed. Or the opposite - being so fidgety or restless that you have been moving around a lot more than usual: several days 9. Thoughts that you would be better off or of hurting yourself in some way: several days Total score: 12 Depression Screening Interpretation: Positive Depression Screening Follow-up: Existing condition and Follow-up Visit Requested Depression Screening Done: Yes 67778 - PHQ-9 Billing: Yes Source: Developed by Drs. Song Snyder, Ashley Ashford, Papa Gilliam and colleagues, with an educational maryjo from [employer]. Thrive Questionnaire Date Thrive assessed: 07/30/25 I am a: Patient What is your living situation today?: I have a place to live, but I am worried about losing it in the future Within the past 12 months, did the food you bought not last and you didn't have the money to get more?: Sometimes True Within the past 12 months, did you worry whether your food would run out before you got money to buy more?: Sometimes True Do you have trouble paying for medicines?: No Do you have trouble getting transportation to medical appointments?: No Do you have trouble paying your heating and electricity bill?: No Do you have trouble taking care of your child, family member or friend?: No Do you have trouble with day-to-day activities such as bathing, preparing meals, shopping, managing finances, etc.?: Yes Are you currently unemployed and looking for a job?: Yes Are you interested in more education?: No Please select the resources that you would like help with: Housing/Snf, Food, Care for elder or disabled and Daily support Currently or been in a relationship where the following occur: I choose not to answer THRIVE Score: 3 AUDIT C Alcohol Use Questionnaire (AUDIT-C) 1. How often do you have a drink containing alcohol?: Never 2. How many drinks containing alcohol do you have on a typical day when you are drinking?: 1 or 2 3. How often do you have six or more drinks on one occasion?: Never Total Score: 0 ISABEL-7 AMB Questionnaire ISABEL-7 Date ISABEL - 7 assessed: 11/01/24 Feeling nervous, anxious, or on edge: 1 = Several days Not being able to stop or control worryin = Several days Worrying too much about different things: 1 = Several days Trouble relaxin = Several days Being so restless that it is hard to sit still: 1 = Several days Becoming easily annoyed or irritable: 1 = Several days Feeling afraid as if something awful might happen: 1 = Several days Total ISABEL-7 score (0-4 normal; 5-9 mild; 10-14 moderate; 15-21 severe): 7 Source: Developed by Drs. Song Snyder, Ashley Ashford, Papa Gilliam and colleagues, with an educational maryjo from [employer]. ISABEL-7 Assessment Billing ISABEL-7 Assessment Tool: ISABEL-7 Assessment 40000 Review of Systems Const All systems reviewed & are unremarkable except as noted in HPI and below Card Denies chest pain at rest, Denies chest pain with activity, Denies edema, Denies irregular heart rhythm, Denies claudication, Denies dyspnea, Denies dyspnea on exertion, Denies orthopnea, Denies paroxysmal nocturnal dyspnea and Denies slow heart rate Resp Denies cough, Denies dyspnea and Denies dyspnea on exertion GI Denies abdominal pain, Denies change in bowel habits, Denies excessive flatus, Denies nausea and Denies vomiting Denies urinary hesitancy, Denies urinary incontinence and Denies urinary urgency Physical exam (Primary Care) Vital Signs: Last Vital Signs Temp 97.1 F 08/06/25 13:46 Pulse 77 08/06/25 13:46 Resp 18 08/06/25 13:46 BP 124/82 08/06/25 13:46 Pulse Ox 98 08/06/25 13:46 Oxygen Delivery Method Room Air 08/06/25 13:46 BMI result Body Mass Index 35.5 BMI Assessment/Plan discussion: High BMI High, discussed plan: lifestyle, weight reduction, dietary and physical activity Tobacco/Smoking Status: Tobacco use Status Tobacco use date assessed 08/06/25 08/06/25 13:58 Patient Tobacco Use Status Former Tobacco user 08/06/25 13:58 Tobacco use type Cigarette 08/06/25 13:58 e-Cigarette/Vaping Use Never Used 08/06/25 13:58 PHQ-9: PHQ-9 Score PHQ-9: Total score 12 08/06/25 15:03 Depression Screening Interpretation: Positive Depression Screening Follow-up: Existing condition and Follow-up Visit Requested Thrive Assessment: Date of Thrive Assessment Date Thrive assessed 07/30/25 08/06/25 13:58 Currently or been in a relationship where the following occur: I choose not to answer [facility] Head: Yes normal to inspection, Yes normocephalic and Yes atraumatic Ears: external ears normal Eyes General: appearance normal, both eyes and all related structures Eyelids: Yes eyelids normal Conjunctivae: conjunctivae normal Neck Neck: Yes normal visual inspection and Yes supple Resp Effort & Inspection: normal respiratory effort Auscultation: clear to auscultation bilaterally Cardio Jugular venous distension: no JVD Rate: regular rate Rhythm: regular rhythm Heart sounds: S1 normal heart sound present and S2 normal heart sound present GI Inspection: Yes normal to inspection Palpation (GI): Soft to palpation and nontender Auscultation: normal bowel sounds Skin General skin exam: no rashes or lesions noted Neuro General: no focal motor deficits Extrem General: Yes full ROM Psych Appearance: grossly normal Office Procedures Flu Questionnaire Does the patient have a severe egg allergy?: No Does the patient have severe life threatening allergies?: No Does the patient have a fever or illness today?: No Has the patient ever had Guillain-[place] Syndrome?: No Has the patient ever had any past reaction to a flu shot?: No Results AMB Hemoglobin A1c AMB Hemoglobin A1c 5.6 % Last Edit by EVENS Leal on 08/06/25 14:45 Immunizations Fluarix [id number] (PF) 45 mcg (15 mcg x 3)/0.5 mL IM syringe Performing Provider: Jacquie Lagunas MD [facility] Administered by: Leisa Landaverde RN on 08/06/25 15:06 Dose Route Admin Location Dispensed Lot Number Expiration Date [facility] Scenario Writer 0.5 mL IM Left Deltoid 0.5 mL [id number] 04/01/26 [id number] [employer] VIS Given Date VIS Provided VIS Publication Date 08/06/25 Single Vaccine 24 Eligibility Eligibility Date Funding Source Not [facility] Eligible 08/06/25 Private Results Reviewed Results Reviewed: Laboratory Last Values Hgb A1c (Clinic) 5.6 % (4.0-6.0) 08/06/25 14:31 Coding Level of Care Code Est Pt Prev Care 40-64y(72598) Diagnoses Physical exam Z00.00 Bipolar affective disorder, remission status unspecified F31.9 Active/Remission status: remission status unspecified Type 2 diabetes mellitus without complication, without long-term current use of insulin E11.9 Diabetes mellitus complication status: without complication Diabetes mellitus prison insulin use: without terminal operations supervisor use Diabetes mellitus type: type 2 Chronic obstructive pulmonary disease, unspecified COPD type J44.9 COPD type: unspecified COPD Additional Codes ISABEL-7 Assessment Billing - ISABEL-7 Assessment Tool: ISABEL-7 Assessment 87573 ([id number]) PHQ-9 - 81087 - PHQ-9 Billing: Yes ([id number]) Time Spent (min) 31 Assessment & Plan Assessment & Plan (1) Physical exam: Code(s): Z00.00 - Encounter for general adult medical examination without abnormal findings Category: Medical (2) Bipolar disorder: Code(s): F31.9 - Bipolar disorder, unspecified Category: Medical Qualifiers: Active/Remission status: remission status unspecified Qualified Code(s): F31.9 - Bipolar disorder, unspecified (3) Diabetes: Code(s): E11.9 - Type 2 diabetes mellitus without complications Category: Medical Qualifiers: Diabetes mellitus complication status: without complication Diabetes mellitus prison insulin use: without terminal operations supervisor use Diabetes mellitus type: type 2 Qualified Code(s): E11.9 - Type 2 diabetes mellitus without complications (4) COPD (chronic obstructive pulmonary disease): Code(s): J44.9 - Chronic obstructive pulmonary disease, unspecified Category: Medical Qualifiers: COPD type: unspecified COPD Qualified Code(s): J44.9 - Chronic obstructive pulmonary disease, unspecified Plan Plan 1. Encounter for general adult medical examination without abnormal findings Z00.00 The patient presents for a routine annual physical exam. Plan includes administration of the influenza vaccine today. Non-fasting laboratory studies, including a thyroid panel and urinalysis, will be ordered for the patient to complete after the visit. 2. Type 2 diabetes mellitus without complications E11.9 HCC 19 The patient has a history of diabetes, with a past prescription for metformin several years ago. To assess current glycemic control, a Hemoglobin A1c will be ordered. 3. Bipolar disorder, unspecified F31.9 HCC 59 The patient has a stable history of bipolar disorder and is followed by a psychiatrist. Continue current management. 4. Chronic obstructive pulmonary disease, unspecified J44.9 HCC 111 The patient has a known history of COPD. No changes to the current management plan were discussed. Orders: Orders Potassium Today E87.6 - Hypokalemia Vitamin D 25-OH Total Today E55.9 - Vitamin D deficiency, unspecified Influenza [id number] Immunization Today Z23 - Encounter for immunization AMB Hemoglobin A1c Today E11.9 - Type 2 diabetes mellitus without complications Thyroid Stimulating Hormone Today E03.9 - Hypothyroidism, unspecified Vitamin B12 and Folate Today E53.8 - Deficiency of other specified B group vitamins
[2025-08-06 13:46] VITALS: BP 124/82; PULSE 77; RESP 18; TEMP 36.2; O2SAT 98; BMI 35.5
== END 2025-08-06 15:06 | disposition home or self-care (01) ==
LOC: HO.HMCH 13:44
PROVIDERS: PCP Internal Medicine; Visit Provider Internal Medicine
DX: Z00.00 Encounter for general adult medical examination without abnormal findings (principal); F31.9 Bipolar disorder, unspecified; E11.9 Type 2 diabetes mellitus without complications; J44.9 Chronic obstructive pulmonary disease, unspecified; Z23 Encounter for immunization

== ENCOUNTER 2025-08-06 13:43 | Outpatient (REF) | payer OTHER, SELFPAY ==
[2025-08-06 17:44] LABS: Potassium 3.8 mmol/L (3.3-5.1)
[2025-08-06 17:53] LABS: Thyroid Stimulating Hormone 1.03 uIU/mL (0.32-4.0)
[2025-08-06 18:06] LABS: Folate 13.1 ng/mL (> or = 4.0); Vitamin B12 802 pg/mL (200-900)
== END 2025-08-06 13:44 | disposition home or self-care (01) ==
LOC: HO.LAB 13:43
PROVIDERS: PCP Internal Medicine; Visit Provider Internal Medicine
DX: Z00.00 Encounter for general adult medical examination without abnormal findings (principal); E55.9 Vitamin D deficiency, unspecified; E03.9 Hypothyroidism, unspecified; E53.8 Deficiency of other specified B group vitamins; E87.6 Hypokalemia; F31.9 Bipolar disorder, unspecified; J44.9 Chronic obstructive pulmonary disease, unspecified; E11.9 Type 2 diabetes mellitus without complications; Z87.891 Personal history of nicotine dependence; Z23 Encounter for immunization
CPT/HCPCS: 36415; 82306; 82607; 82746; 83036; 84132; 84443; 90471; 90656; 96127; 99396